=== PATIENT | male | born 1980 | race Hispanic/Latino ===

== ENCOUNTER 2020-04-08 20:32 | Emergency (ER) | payer OTHER ==
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
--- OUTSIDE RECORDS SUMMARY | 2020-04-08 20:39 | XMS REPORT | Continuity of Care Document ---
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 Mary [facility] Enco unter/ Legacy 00:00:00 00:00:00 Visit Alba Perkins [id number] Communi 977505 ty Health 2019-12-31 2019-12-31 Office Gardenia Echevarria [facility] Encounte r/ Legacy 00:00:00 00:00:00 Visit Teresa [id number] Com katerine 151576 ty Health 2019-12-28 2019-12-28 Office Diamond, [facility] LC Encounter / Legacy 00:00:00 00:00:00 Visit Alba [id number] Com katerine 195792 ty Health 2019-12-28 2019-12-28 Office Diamond, [facility] Encounter / Legacy 00:00:00 00:00:00 Visit Alba [id number] Com katerine 509602 ty Health 2019-12-20 2019-12-20 Office Provider, Public Health Services Omid [facility] Encounter/ Legacy 00:00:00 00:00:00 Visit Jeremiah Marroquin [id number] [id number] Communi 686052 ty Health 2019-11-30 2019-11-30 Office DiamondAlba [facility] Enco unter/ Legacy 00:00:00 00:00:00 Visit Christal Valdez [id number] Communi 606155 ty Health 2019-11-30 2019-11-30 Office Provider, Public Health Services [facility] Encounter/ Legacy 00:00:00 00:00:00 Visit Jeremiah Marroquin [phone] [id number] Communi 955031 ty Health 2019-11-30 2019-11-30 Office Diamond, LC [facility] Encounter / Legacy 00:00:00 00:00:00 Visit Alba [id number] Com katerine 531018 ty Health 2019-11-30 2019-11-30 Office Diamond, LC [facility] Encounter / Legacy 00:00:00 00:00:00 Visit Alba [id number] Com katerine 814455 ty Health 2019-05-18 2019-05-18 Office Diamond, [facility] LC Encounter / Legacy 00:00:00 00:00:00 Visit Alba [id number] Com katerine 115682 ty Health 2019-05-18 2019-05-18 Office Diamond, [facility] LC Encounter / Legacy 00:00:00 00:00:00 Visit Alba [id number] Com katerine 929352 ty Health 2019-05-18 2019-05-18 Office Diamond, Alba [facility] Enco unter/ Legacy 00:00:00 00:00:00 Visit Teena Miner [id number] Communi 129362 ty Health 2019-03-26 2019-03-26 Office Diamond, Alba [facility] Enco unter/ Legacy 00:00:00 00:00:00 Visit Loja Nique [id number] Communi 996337 ty Health 2019-01-19 2019-01-19 Office Diamond, Alba [facility] LC Enco unter/ Legacy 00:00:00 00:00:00 Visit Delgado Lori [id number] Communi 709264 ty Health 2019-01-03 2019-01-03 Office FLORES Crum LC Encounter/ Legacy 00:00:00 00:00:00 Visit Sandip [id number] Com katerine 890140 ty Health 2019-01-03 2019-01-03 Office FLORES Crum [facility] Encounter/ Legacy 00:00:00 00:00:00 Visit Sandip [id number] Com katerine 324301 ty Health 2018-12-20 2018-12-20 Office LucasEREN LC Encounte r/ Legacy 00:00:00 00:00:00 Visit Evette [id number] Com katerine 749303 ty Health 2018-12-06 2018-12-06 Office Dimaond, FLORES LC Encounter / Legacy 00:00:00 00:00:00 Visit Alba [id number] Com katerine 571583 ty Health 2018-12-06 2018-12-06 Office Diamond, EREN LC Encounter / Legacy 00:00:00 00:00:00 Visit Alba [id number] Com katerine 408352 ty Health 2018-09-28 2018-09-28 Office Diamond, EREN LC Encounter / Legacy 00:00:00 00:00:00 Visit Alba [id number] Com katerine 883597 Health 2018-09-28 2018-09-28 Office Diamond, Alba [facility] Enco unter/ Legacy 00:00:00 00:00:00 Visit Lisandra Webster [id number] Communi 687860 ty Health 2018-09-15 2018-09-15 Office Provider, Public Health Services L [facility] Encounter/ Legacy 00:00:00 00:00:00 Visit Jeremiah Marroquin [phone] [id number] Communi 503024 ty Health 2018-09-14 2018-09-14 Office FLORES Jc Encounter/ Legacy 00:00:00 00:00:00 Visit Gil [id number] Com katerine 875280 ty Health 2018-09-13 2018-09-13 Office Provider, Public Health Services L [facility] Encounter/ Legacy 00:00:00 00:00:00 Visit Jeremiah Marroquin [phone] [id number] Communi 121845 ty Health 2018-09-04 2018-09-04 Office Provider, Public Health Services L [facility] Encounter/ Legacy 00:00:00 00:00:00 Visit Jeremiah Marroquin [phone] [id number] Communi 356540 ty Health 2018-06-07 2018-06-07 Office Hosea, L[facility] Encounter/ Legacy 00:00:00 00:00:00 Visit Gil [id number] Com katerine 332104 Health 2018-06-07 2018-06-07 Office EREN JcH [facility] Encounter/ Legacy 00:00:00 00:00:00 Visit Gil [id number] Com katerine 675402 Health 2018-06-07 2018-06-07 Office Gil JcH L[facility] Enc ounter/ Legacy 00:00:00 00:00:00 Visit Nancy Zimmerman [id number] [address] [place] [address] Tal Valdez [id number] Health 2018-06-01 2018-06-01 Office Provider, Public Health Services L [facility] Encounter/ Legacy 00:00:00 00:00:00 Visit Jeremiah Marroquin [phone] [facility] [id number] [facility] 2018-05-30 2018-05-30 Office Rafita Espinal LCDunia L[facility] Encounter/ Legacy 00:00:00 00:00:00 Visit Lon Garrison [id number] [address] [place] [address] [id number] [facility] 2018-05-29 2018-05-29 Office Provider, Public Health Services L [facility] Encounter/ Legacy 00:00:00 00:00:00 Visit Jeremiah Marroquin [phone] [id number] [facility] 687619 [facility] 2018-02-01 2018-02-01 Office OToni L[facility] Encounter/ Legacy 00:00:00 00:00:00 Visit Rafita Pringle [id number] [facility] [id number] Health 2018-02-01 2018-02-01 Office Provider, Public Health Services L [facility] Encounter/ Legacy 00:00:00 00:00:00 Visit Jeremiah Marroquin [phone] [facility] 620730 Health 2018-02-01 2018-02-01 Office Provider, Public Health Services L [facility] Encounter/ Legacy 00:00:00 00:00:00 Visit Jeremiah Marroquin [phone] [facility] [id number] [facility] 2018-01-31 2018-01-31 Office Provider, Public Health Services L [facility] Encounter/ Legacy 00:00:00 00:00:00 Visit Jeremiah Marroquin [phone] [id number] [facility] 971063 ty Health 2018-01-31 2018-01-31 Office Rafita Espinal Dunia [facility] Encounter/ Legacy 00:00:00 00:00:00 Visit Audrey Sharp [id number] [facility] 144701 Health 2018-01-04 2018-01-04 Office Provider, Public Health Services L [facility] Encounter/ Legacy 00:00:00 00:00:00 Visit Jeremiah Marroquin [phone] [id number] [facility] 865699 ty Health 2017-12-06 2017-12-06 Office Mustapha [facility] Encounte r/ Legacy 00:00:00 00:00:00 Visit Lilly [id number] [facility] 187163 ty Health 2017-11-14 2017-11-14 Office FLORES Espinal LC Encounter/ Legacy 00:00:00 00:00:00 Visit Rafita Pringle [id number] [facility] [id number] Health 2017-11-11 2017-11-11 Office FLORES Espinal LC Encounter/ Legacy 00:00:00 00:00:00 Visit Rafita Pringle [id number] [facility] 872081 [facility] Health 2017-10-21 2017-10-21 Office Kylie [facility] LC Encounter/ Legacy 00:00:00 00:00:00 Visit Rafita Pringle [id number] [facility] 375103 Health 2017-10-12 2017-10-12 Office Provider, Public Health Services L [facility] Encounter/ Legacy 00:00:00 00:00:00 Visit Jeremiah Marroquin [phone] [facility] 442679 ty Health 2017-09-01 2017-09-01 Office Kylie [facility] Encounter/ Legacy 00:00:00 00:00:00 Visit Rafita Pringle [id number] [facility] 795942 ty Health 2017-09-01 2017-09-01 Office Rafita Espinal [facility] Encounter/ Legacy 00:00:00 00:00:00 Visit Dmitri Jaramillo [id number] [facility] 120269 ty Health 2017-08-03 2017-08-03 Office Provider, Public Health Services L [facility] Encounter/ Legacy 00:00:00 00:00:00 Visit Jeremiah Marroquin [phone] [id number] Communi 050558 ty Health 2017-08-03 2017-08-03 Office O'Wilman, [facility] Encounter/ Legacy 00:00:00 00:00:00 Visit Rafita Pringle [id number] Communi 729034 ty Health 2017-08-02 2017-08-02 Office Provider, Public Health Services L [facility] Encounter/ Legacy 00:00:00 00:00:00 Visit Jeermiah Marroquin [phone] [id number] Communi 216703 ty Health 2017-07-21 2017-07-21 Office O'Wilman, [facility] Encounter/ Legacy 00:00:00 00:00:00 Visit Rafita Pringle [id number] [facility] 989044 Health 2017-07-20 2017-07-20 Office Provider, Public Health Services L [facility] Encounter/ Legacy 00:00:00 00:00:00 Visit Jeremiah Marroquin [phone] [facility] 108759 Health 2017-05-04 2017-05-04 Office O'Wilman, [facility] Encounter/ Legacy 00:00:00 00:00:00 Visit Rafita Pringle [id number] Communi 852500 ty Health 2017-05-04 2017-05-04 Office O'Wliman, [facility] Encounter/ Legacy 00:00:00 00:00:00 Visit Rafita Pringle [id number] [facility] 653230 ty Health 2017-05-04 2017-05-04 Office O'Wilman, [facility] Encounter/ Legacy 00:00:00 00:00:00 Visit Rafita Pringle [id number] [facility] 374763 ty Health 2017-05-04 2017-05-04 Office Provider, Public Health Services L [facility] Encounter/ Legacy 00:00:00 00:00:00 Visit Jeremiah Marroquin [phone] [id number] [facility] 079785 ty Health 2017-04-28 2017-04-28 Office O'Wilman, [facility] Encounter/ Legacy 00:00:00 00:00:00 Visit Rafita Pringle [id number] [facility] 267303 Health 2017-04-22 2017-04-22 Office Provider, Public Health Services L [facility] Encounter/ Legacy 00:00:00 00:00:00 Visit KeristephanyJeremiah butterfield [phone] [id number] Communi 220351 [facility] 2017-04-22 2017-04-22 Office Provider, Public Health Services L [facility] Encounter/ Legacy 00:00:00 00:00:00 Visit Jeremiah Marroquin [phone] Communi [id number] Health 2017-04-17 2017-04-17 Outpatient Sandhir, MHPL MHPL [id number] 19:59:00 21:16:00 Ambica 2017-03-02 2017-03-02 Outpatient Malya, MHPL MHPL [id number] 19:11:00 23:19:00 Braxton 00 Isma 2017-02-21 2017-02-21 Office Rafita Espinal [facility] Encounter/ Legacy 00:00:00 00:00:00 Visit Ry Palomino [id number] Communi 164886 [facility] 2017-02-18 2017-02-18 Office Rafita Espinal [facility] Encounter/ Legacy 00:00:00 00:00:00 Visit Magi Kimball [id number] Communi [id number] Health 2017-01-19 2017-01-19 Office FLORES Espinal LC Encounter/ Legacy 00:00:00 00:00:00 Visit Rafita Pringle [id number] Communi 953201 Health 2017-01-19 2017-01-19 Office Rafita Espinal LC Encounter/ Legacy 00:00:00 00:00:00 Visit Magi Kimball [id number] Communi 799141 Health 2017-01-17 2017-01-17 Office FLORES Espinal [facility] Encounter/ Legacy 00:00:00 00:00:00 Visit Rafita Pringle [id number] Communi 311589 Health 2017-01-12 2017-01-12 Office FLORES Espinal [facility] Encounter/ Legacy 00:00:00 00:00:00 Visit Rafita Pringle [id number] Communi 267055 Health 2017 2017 Office EREN Espinal [facility] Encounter/ Legacy 00:00:00 00:00:00 Visit Rafita Pringle [id number] [facility] 938389 Health 2017 2017 Office Provider, Public Health Services L [facility] Encounter/ Legacy 00:00:00 00:00:00 Visit Jeremiah Marroquin [phone] [facility] 583067 Health 2017 2017 Office O'Wilman, [facility] Encounter/ Legacy 00:00:00 00:00:00 Visit Rafita Pringle [phone] [facility] 419009 Health 2017 2017 Office O'Rafita Stovall [facility] Encounter/ Legacy 00:00:00 00:00:00 Visit Dmitri Jaramillo [id number] [facility] 678847 Health 2016-12-13 2016-12-13 Office Provider, Public Health Services L [facility] Encounter/ Legacy 00:00:00 00:00:00 Visit Jeremiah Marroquin [phone] [facility] 066089 Health 2016-12-10 2016-12-10 Office O'Wilman, [facility] Encounter/ Legacy 00:00:00 00:00:00 Visit Rafita Pringle [phone] [facility] 135199 [facility] 2016-02-25 2016-02-25 Office Provider, Public Health Services L [facility] Encounter/ Legacy 00:00:00 00:00:00 Visit Jeremiah Marroquin [phone] [facility] 919341 [facility] 2016-02-24 2016-02-24 Office Provider, Public Health Services L [facility] Encounter/ Legacy 00:00:00 00:00:00 Visit Jeremiah Marroquin [phone] [id number] [facility] [id number] Health 2016-02-11 2016-02-11 Office Karina, [facility] Encount er/ Legacy 00:00:00 00:00:00 Visit Renetta [id number] [facility] 912326 Health 2016-02-11 2016-02-11 Office Provider, Public Health Services L [facility] Encounter/ Legacy 00:00:00 00:00:00 Visit Eugenie Angeles [id number] [facility] 866326 Health 2016-02-11 2016-02-11 Office VickynedaanatoliyRenetta stubbs [facility] Encounter/ Legacy 00:00:00 00:00:00 Visit Geyl Lopez [phone] [id number] CommunRafita Sharp 3091 70 ty Health 2016-01-29 2016-01-29 Office Ayesha, [facility] Encounter/ Legacy 00:00:00 00:00:00 Visit Antoinette [id number] Com katerine 102216 ty Health 2016-01-29 2016-01-29 Office Ayesha, [facility] Encounter/ Legacy 00:00:00 00:00:00 Visit Antoinette [id number] Com katerine 024743 ty Health 2015-09-01 2015-09-01 Office Yuri, [facility] Encounter/ Legacy 00:00:00 00:00:00 Visit Kacie [id number] Com katerine 438124 ty Health 2015-08-22 2015-08-22 Office EREN Espinal [facility] Encounter/ Legacy 00:00:00 00:00:00 Visit Rafita Pringle [id number] Communi 693984 ty Health 2015-08-22 2015-08-22 Office Provider, Public Health Services L [facility] Encounter/ Legacy 00:00:00 00:00:00 Visit Jeremiah Marroquin [phone] [id number] Communi 182044 ty Health 2015-08-21 2015-08-21 Office Noemi'Wilman, LC [facility] Encounter/ Legacy 00:00:00 00:00:00 Visit Rafita Pringle [id number] Communi 847781 ty Health 2015-08-21 2015-08-21 Office O'Wilman, LC [facility] Encounter/ Legacy 00:00:00 00:00:00 Visit Rafita Pringle [id number] Communi 820392 ty Health 2015-08-21 2015-08-21 Office Provider, Public Health Services L CH [facility] Encounter/ Legacy 00:00:00 00:00:00 Visit Eugenei Angeles [id number] Communi 261284 ty Health 2015-08-21 2015-08-21 Office Provider, Public Health Services L [facility] Encounter/ Legacy 00:00:00 00:00:00 Visit Eugenie Angeles [id number] Communi 712542 ty Health 2015-08-21 2015-08-21 Office Rafita Espinal LC [facility] Encounter/ Legacy 00:00:00 00:00:00 Visit Dmitri Jaramillo [id number] Communi 736839 ty Health 2015-08-20 2015-08-20 Office Provider, Public Health Services L CH [facility] Encounter/ Legacy 00:00:00 00:00:00 Visit Jeremiah Marroquin [phone] [id number] Communi 857562 ty Health 2015-08-12 2015-08-12 Office FLORES Espinal [facility] Encounter/ Legacy 00:00:00 00:00:00 Visit Rafita Pringle [id number] Communi 441859 ty Health 2015-08-12 2015-08-12 Office Rafita Espinal [facility] Encounter/ Legacy 00:00:00 00:00:00 Visit Dmitri Jaramillo [id number] [facility] 918746 [facility] Health 2015-08-11 2015-08-11 Office FLORES Espinal [facility] Encounter/ Legacy 00:00:00 00:00:00 Visit Rafita Pringle [id number] Communi 301018 ty Health 2015-08-11 2015-08-11 Office FLORES Kimball LC Encounter/ Legacy 00:00:00 00:00:00 Visit Stephanie [id number] Com katerine 163546 ty Health 2015-08-11 2015-08-11 Office Provider, Public Health Services L CH [facility] Encounter/ Legacy 00:00:00 00:00:00 Visit Jeremiah Marroquin [phone] [id number] Communi 380389 ty Health 2015-08-11 2015-08-11 Office Stephanie Kimball [facility] Enco unter/ Legacy 00:00:00 00:00:00 Visit Renato Weller [id number] Communi 566447 ty Health 2015-01-29 2015-01-29 Office Cara TANNER [facility] Encoun ter/ Legacy 00:00:00 00:00:00 Visit Jeremiah [id number] Com katerine 293913 ty Health 2014-12-23 2014-12-23 Office FLORES Hodge [facility] Encounter/ Legacy 00:00:00 00:00:00 Visit Antoinette [id number] Com katerine 567200 ty Health 2014-12-17 2014-12-17 Office Cliff [facility] Encounte r/ Legacy 00:00:00 00:00:00 Visit Daphne [id number] Com katerine 933479 ty Health 2014-12-17 2014-12-17 Office CliffDaphne brizuela [facility] Enc ounter/ Legacy 00:00:00 00:00:00 Visit Antoinette Hodge [id number] Communi 820962 ty Health 2014-12-01 2014-12-01 Office Ayesha [facility] Encounter/ Legacy 00:00:00 00:00:00 Visit Antoinette [id number] Com katerine 684968 ty Health 2014-11-19 2014-11-19 Office [facility] Encoun ter/ Legacy 00:00:00 00:00:00 Visit , Jeremiah [id number] Com katerine 582743 ty Health 2014-11-19 2014-11-19 [facility]/ Legacy 00:00:00 00:00:00 Visit , Jeremiah [id number] Com katerine 680411 ty Health 2014-11-14 2014-11-14 Office Ayesha [facility] Encounter/ Legacy 00:00:00 00:00:00 Visit Antoinette [id number] Com katerine 338338 ty Health 2014-11-14 2014-11-14 Office Antoinette Hodge [facility] Enc ounter/ Legacy 00:00:00 00:00:00 Visit Mirta Ramos [id number] Communi 148657 ty Health 2014-11-14 2014-11-14 Office Antoinette Hodge [facility] Enc ounter/ Legacy 00:00:00 00:00:00 Visit Lilly Luciano [phone] [id number] Communi 099798 ty Health 2014-11-13 2014-11-13 Office [facility] Encoun ter/ Legacy 00:00:00 00:00:00 Visit , Jeremiah [id number] Com katerine 999183 ty Health 2014-11-12 2014-11-12 Office [facility] Encoun ter/ Legacy 00:00:00 00:00:00 Visit , Jeremiah [id number] Com katerine 123701 ty Health 2014-10-30 2014-10-30 [facility] Legacy 00:00:00 00:00:00 Visit Zulema [id number] Com katerine 633229 ty Health 2014-10-29 2014-10-29 [facility]00 00:00:00 Visit , Jeremiah [id number] Com katerine 339433 ty Health 2014-10-22 2014-10-22 [facility] Legacy 00:00:00 00:00:00 Visit Antoinette [id number] Com katerine 186008 ty Health 2014-10-22 2014-10-22 [facility] Legacy 00:00:00 00:00:00 Visit , Jeremiah [id number] Com katerine 605250 ty Health 2014-10-18 2014-10-18 [facility] Legacy 00:00:00 00:00:00 Visit Antoinette [id number] Com katerine 186899 ty Health 2014-10-18 2014-10-18 Office FLORES Hodge Encounter/ Legacy 00:00:00 00:00:00 Visit Antoinette [id number] Com katerine 618631 ty Health 2014-10-18 2014-10-18 [facility] Legacy 00:00:00 00:00:00 Visit , Jeremiah [id number] Com katerine 694482 ty Health 2014-10-18 2014-10-18 Office Antoinette Hodge [facility] Enc ounter/ Legacy 00:00:00 00:00:00 Visit Lilly Luciano [phone] [id number] Communi 243186 ty Health 2014-10-17 2014-10-17 [facility] Legacy 00:00:00 00:00:00 Visit Antoinette [id number] Com katerine 985124 ty Health 2014-10-17 2014-10-17 Office Anila [facility] Encounter/ Legacy 00:00:00 00:00:00 Visit Tucker [id number] Com katerine 189688 ty Health 2014-10-09 2014-10-09 [facility] Legacy 00:00:00 00:00:00 Visit Nelson [id number] Com katerine 305266 ty Health 2014-10-08 2014-10-08 [facility]/ Legacy 00:00:00 00:00:00 Visit Nelson [id number] Com katerine 167583 ty Health 2014-10-02 2014-10-02 [facility]/ Legacy 00:00:00 00:00:00 Visit Nelson [id number] Com katerine 731295 ty Health 2014-10-02 2014-10-02 [facility]/ Legacy 00:00:00 00:00:00 Visit Nelson [id number] Com katerine 674014 ty Health 2014-10-02 2014-10-02 [facility]/ Legacy 00:00:00 00:00:00 Visit Nelson [id number] Com katerine 166719 ty Health 2014-10-02 2014-10-02 Office [facility] counter/ Legacy 00:00:00 00:00:00 Visit Per Collins [id number] Communi 802467 ty Health 2014-10-02 2014-10-02 Office Arthur [facility] Encount er/ Legacy 00:00:00 00:00:00 Visit Thee [id number] Com katerine 507036 ty Health 2014-09-20 2014-09-20 [facility]/ Legacy 00:00:00 00:00:00 Visit Nelson [id number] Com katerine 698512 ty Health 2014-07-22 2014-07-22 [facility] / Legacy 00:00:00 00:00:00 Visit Jt [id number] Com katerine 665952 ty Health 2013-02-13 2013-02-13 Office EREN Simmons EREN Encounter / Legacy 00:00:00 00:00:00 Visit Cynthia [id number] Co mmuni 790570 Health 2013-02-13 2013-02-13 Office Troy [facility] LC Encounter / Legacy 00:00:00 00:00:00 Visit Cynthia [id number] Co mmuni 649489 ty Health 2013-02-09 2013-02-09 Office EREN Diamond LC Encounter / Legacy 00:00:00 00:00:00 Visit Alba [id number] Com katerine 384010 Health 2013-02-09 2013-02-09 [facility] Legacy 00:00:00 00:00:00 Visit [id number] Com katerine 525558 Health 2013-02-09 2013-02-09 Office Alba Diamond [facility] Enco unter/ Legacy 00:00:00 00:00:00 Visit Paul Alvarenga [id number] [facility] Tao Frieda [phone] [facility] 2013-02-01 2013-02-01 Office Troy [facility] LC Encounter / Legacy 00:00:00 00:00:00 Visit Cynthia [id number] Co mmuni [id number] [facility] 2013-01-31 2013-01-31 [facility] / Legacy 00:00:00 00:00:00 Visit Cynthia [id number] Co mmuni [id number] [facility] 2013-01-09 2013-01-09 Office Adwoa Marcelo [facility] LCH Enc ounter/ Legacy 00:00:00 00:00:00 Visit Yuridia Foley [id number] Communi [id number] [facility] 2013-01-09 2013-01-09 Office Alba Diamond [facility] Enco unter/ Legacy 00:00:00 00:00:00 Visit Oren Edouard [id number] [facility] Paul Alvarenga [id number] [facility] 2013-01-02 2013-01-02 Office Bladimir EREN LC Encounter/ Legacy 00:00:00 00:00:00 Visit Lon [id number] Com katerine [id number] [facility] 2013-01-02 2013-01-02 Office Lon Garrison [facility] Encou nter/ Legacy 00:00:00 00:00:00 Visit Evette Li [id number] Communi [id number] Health 2012-12-27 2012-12-27 Office Troy [facility] Encounter / Legacy 00:00:00 00:00:00 Visit Cynthia [id number] Co mmuni [id number] Health 2012-10-23 2012-10-23 Office Colette [facility] Encounter / Legacy 00:00:00 00:00:00 Visit [id number] Com katerine [id number] ty Health 2012-10-11 2012-10-11 Office Christopher [facility] Encounter/ Legacy 00:00:00 00:00:00 Visit Kenny [id number] Com kaetrine [id number] Health 2012-10-11 2012-10-11 Office Christopher [facility] Encounter/ Legacy 00:00:00 00:00:00 Visit Kenny [id number] Com katerine [id number] Health 2012-10-11 2012-10-11 Office Kenny White [facility] Enco unter/ Legacy 00:00:00 00:00:00 Visit Neli Flores [id number] Communi [id number] [facility] 2012-10-09 2012-10-09 Office Christopher [facility] Encounter/ Legacy 00:00:00 00:00:00 Visit Kenny [id number] Com katerine [id number] Health 2012-10-02 2012-10-02 Office Colette [facility] Encounter / Legacy 00:00:00 00:00:00 Visit [id number] Com katerine [id number] Health 2012-09-27 2012-09-27 Office Troy [facility] Encounter / Legacy 00:00:00 00:00:00 Visit Cynthia [id number] Co mmuni [id number] [facility] Results Test Description Test Time Test Comments Results Result Comments Source vitamin D 25-hydroxy, serum 2020-03-26 14:43:00 Test Item Value Reference Range Interpretation Comme nts vitamin D 25-hydroxy, serum (test code = 14977-9) 22.4 ng/mL 30.0 -100.0 [facility], as % of total pmvdncsbvk1988-49-73 14:43:00 Test Item Value Reference Range Interpretation Comments hemoglobin A1C, blood, as % of total 5.3 % 4.8-5.6 hemoglobin (test code = 4548-4) [facility] Healthfolate, [id number] 14:43:00 Test Item Value Reference Range Interpretation Comments folate, serum (test code = 2284-8) 6.0 ng/mL >3.0 [facility] [id number] 14:43:00 Test Item Value Reference Range Interpretation Comments B-12, serum (test code = 2132-9) 843 pg/mL 232-1245 [facility]LDL cholesterol, [id number] 14:43:00 Test Item Value Reference Range Interpretation Comments LDL cholesterol, serum (test code = 148 mg/dL 0-99 H 2088-06) [facility]very low density mqwmtblfqhrv0197-25-60 14:43:00 Test Item Value Reference Range Interpretation Comments very low density lipoproteins (test 22 mg/dL 5-40 code = 1-7) [facility]HDL cholesterol, [id number] 14:43:00 Test Item Value Reference Range Interpretation Comments HDL cholesterol, serum (test code = 39 mg/dL >39 L 2085-02) [facility]rig[facility], serum, sctnzbr5459-53-30 14:43:00 Test Item Value Reference Range Interpretation Comments triglyceride, serum, fasting (test 119 mg/dL 0-149 code = 2571-8) [facility]cholesterol, [id number] 14:43:00 Test Item Value Reference Range Interpretation Comments cholesterol, serum (test code = 209 mg/dL 100-199 H 2092-3) [facility] Centeralanine aminotransferase (SGPT), [id number] 14:43:00 Test Item Value Reference Range Interpretation Comments alanine aminotransferase (SGPT), serum 17 1/L 0-44 (test code = 1742-6) [facility] Centeraspartate aminotransferase (SGOT), [id number] 14:43:00 Test Item Value Reference Range Interpretation Comments aspartate aminotransferase (SGOT), 17 1/L 0-40 serum (test code = 1920-8) [facility] Centeralkaline phosphatase, [id number] 14:43:00 Test Item Value Reference Range Interpretation Comments alkaline phosphatase, serum (test code 63 1/L 39-117 = 1783-0) [facility] Healthbilirubin, serum, [id number] 14:43:00 Test Item Value Reference Range Interpretation Comments bilirubin, serum, total (test code 0.6 mg/dL 0.0-1.2 = 1975-2) [facility] Healthalbumin/globulin ratio, [id number] 14:43:00 Test Item Value Reference Range Interpretation Comments albumin/globulin ratio, serum (test 1.7 1.2-2.2 code = 1759-0) [facility] Healthglobulin, [id number] 14:43:00 Test Item Value Reference Range Interpretation Comments globulin, serum (test code = 2336-6) 2.7 1.5-4.5 [facility] Healthalbumin, [id number] 14:43:00 Test Item Value Reference Range Interpretation Comments albumin, serum (test code = 1751-7) 4.7 g/dL 4.0-5.0 [facility] Healthprotein, total, [id number] 14:43:00 Test Item Value Reference Range Interpretation Comments protein, total, serum (test code = 7.4 g/dL 6.0-8.5 2885-2) [facility]calcium, [id number] 14:43:00 Test Item Value Reference Range Interpretation Comments calcium, serum (test code = 1999-8) 9.3 mg/dL 8.7-10.2 [facility] Centercarbon dioxide, venous [id number] 14:43:00 Test Item Value Reference Range Interpretation Comments carbon dioxide, venous blood (test 22 mmol/L 20-29 code = 7-1) [facility] Healthchloride, rrvhn2798-80-18 14:43:00 Test Item Value Reference Range Interpretation Comments chloride, serum (test code = 100 mmol/L 96-106 5-0) [facility]potassium, [id number] 14:43:00 Test Item Value Reference Range Interpretation Comments potassium, serum (test code = 3.8 mmol/L 3.5-5.2 2823-3) [facility] Centersodium, [id number] 14:43:00 Test Item Value Reference Range Interpretation Comments sodium, serum (test code = 2951-2) 140 mmol/L 134-144 [facility] Centerurea nitrogen/creatinine ratio, fmezb7311-60-24 14:43:00 Test Item Value Reference Range Interpretation Comments urea nitrogen/creatinine ratio, serum 12 9-20 (test code = 3097-3) [facility] HealtheGFR if Eoyagwcl0254-74-16 14:43:00 Test Item Value Reference Range Interpretation Comments eGFR if 103 >59 (test code = 87334-9) mL/min/((173/100).m2) [facility] CenterEstimated Glomerular Filtration Rate (calc)2020-03-26 14:43:00 Test Item Value Reference Range Interpretation Comments Estimated Glomerular 89 >59 Filtration Rate (calc) mL/min/((173/100).m2 (test code = 13779-5) ) [facility] Centercreatinine, [id number] 14:43:00 Test Item Value Reference Range Interpretation Comments creatinine, serum (test code = 1.04 mg/dL 0.76-1.27 2160-0) [facility] Centerurea nitrogen, [id number] 14:43:00 Test Item Value Reference Range Interpretation Comments urea nitrogen, blood (test code = 12 mg/dL 6-24 3094-0) [facility] Centerblood glucose, [id number] 14:43:00 Test Item Value Reference Range Interpretation Comments blood glucose, random (test code = 101 mg/dL 65-99 H 2339-0) [facility] Centerimmature granulocytes, percentage of total cells, blood 2020-03-26 14:43:00 Test Item Value Reference Range Interpretation Comments immature granulocytes, percentage of 0 % total cells, blood (test code = 81208-4) [facility] Centerbasophil count, vzuyroql6488-91-31 14:43:00 Test Item Value Reference Range Interpretation Comments basophil count, absolute (test 0.0 x10E3/uL 0.0-0.2 code = 65549-1) [facility] CenterEosinophil Absolute [id number] 14:43:00 Test Item Value Reference Range Interpretation Comments Eosinophil Absolute Count (test 0.2 X10E3/UL 0.0-0.4 code = 93123-4) [facility] Centermonocyte count, blood, ikqxwexek9547-95-39 14:43:00 Test Item Value Reference Range Interpretation Comments monocyte count, blood, automated 0.5 X10E3/UL 0.1-0.9 (test code = 742-7) [facility] Centerlymphocyte count, blood, bayqbovcc5668-14-17 14:43:00 Test Item Value Reference Range Interpretation Comments lymphocyte count, blood, 2.5 X10E3/UL 0.7-3.1 automated (test code = 731-0) [facility] CenterAbsolute Umbeazoqdhr8217-85-96 14:43:00 Test Item Value Reference Range Interpretation Comments Absolute Neutrophils (test code 3.9 X10E3/UL 1.4-7.0 = 10132-2) [facility] Centerbasophils as percent of blood ludkzatlmo4747-36-82 14:43:00 Test Item Value Reference Range Interpretation Comments basophils as percent of blood 0 % leukocytes (test code = 707-0) [facility] Centereosinophils as percent of blood cpnthqbfje3815-95-83 14:43:00 Test Item Value Reference Range Interpretation Comments eosinophils as percent of blood 2 % leukocytes (test code = 713-8) [facility] Healthmonocytes as percent of blood tkoxjnokff5188-99-56 14:43:00 Test Item Value Reference Range Interpretation Comments monocytes as percent of blood 7 % leukocytes (test code = 5905-5) [facility] Centerlymphocytes as percent of blood vqbdolarcf3117-64-81 14:43:00 Test Item Value Reference Range Interpretation Comments lymphocytes as percent of blood 35 % leukocytes (test code = 736-9) [facility] Centerneutrophils as percent of blood claexlyjbo5991-41-76 14:43:00 Test Item Value Reference Range Interpretation Comments neutrophils as percent of blood 56 % leukocytes (test code = 770-8) [facility] Centerplatelet gmfze5326-78-61 14:43:00 Test Item Value Reference Range Interpretation Comments platelet count (test code = 246 X10E3/UL 150-450 777-3) [facility] Centerred blood cell distribution kehvk0291-77-33 14:43:00 Test Item Value Reference Range Interpretation Comments red blood cell distribution width 12.8 % 11.6-15.4 (test code = 788-0) [facility] corpuscular hemoglobin concentration, [id number] 14:43:00 Test Item Value Reference Range Interpretation Comments mean corpuscular hemoglobin 32.4 G/DL 31.5-35.7 concentration, RBC (test code = 786-4) [facility] Centermean corpuscular hemoglobin, [id number] 14:43:00 Test Item Value Reference Range Interpretation Comments mean corpuscular hemoglobin, RBC 28.8 pg 26.6-33.0 (test code = 785-6) [facility], [id number] 14:43:00 Test Item Value Reference Range Interpretation Comments mean corpuscular volume, RBC (test code 89 fL 79-97 = 787-2) [facility] Centerhematocrit, [id number] 14:43:00 Test Item Value Reference Range Interpretation Comments hematocrit, blood (test code = 4544-3) 42.9 % 37.5-51.0 [facility] Centerhemoglobin, [id number] 14:43:00 Test Item Value Reference Range Interpretation Comments hemoglobin, blood (test code = 13.9 g/dL 13.0-17.7 718-7) [facility] Centererythrocyte (RBC) [id number] 14:43:00 Test Item Value Reference Range Interpretation Comments erythrocyte (RBC) count (test 4.82 X10E6/UL 4.14-5.80 code = 789-8) [facility] Centerleukocyte count, [id number] 14:43:00 Test Item Value Reference Range Interpretation Comments leukocyte count, blood (test 7.1 X10E3/UL 3.4-10.8 code = 6690-2) [facility] Centerthyroxine, serum, [id number] 14:43:00 Test Item Value Reference Range Interpretation Comments thyroxine, serum, free (test code 1.20 ng/dL 0.82-1.77 = 3024-7) [facility] Centerthyroid stimulating hormone, [id number] 14:43:00 Test Item Value Reference Range Interpretation Comments thyroid stimulating hormone, 0.768 u[iU]/mL 0.450-4.500 serum (test code = 3016-3) [facility] CenterNeisseria gonorrhoeae DNA jqyiw1095-30-27 11:09:00 Test Item Value Reference Range Interpretation Comments Neisseria gonorrhoeae DNA probe Negative Negative (test code = 79394-9) [facility] Centerchlamydia DNA [id number] 11:09:00 Test Item Value Reference Range Interpretation Comments chlamydia DNA probe (test code = Negative Negative 03621-4) [facility] Centerhepatitis A antibody, [id number] 11:05:00 Test Item Value Reference Range Interpretation Comments hepatitis A antibody, total (test Positive Negative A code = 75) [facility] CenterHIV-CMIA (Chemiluminescent Microparticle Immuno Assay) 2019-11-30 11:05:00 Test Item Value Reference Range Interpretation Comments HIV-CMIA (Chemiluminescent Non Reactive Non Reactive Microparticle Immuno Assay) (test code = 739719) [facility] Centerrapid plasma reagin antibody, [id number] 11:05:00 Test Item Value Reference Range Interpretation Comments rapid plasma reagin antibody, Non Reactive Non Reactive serum (test code = 5291-0) [facility] Centeralanine aminotransferase (SGPT), [id number] 11:05:00 Test Item Value Reference Range Interpretation Comments alanine aminotransferase (SGPT), serum 15 1/L 0-44 (test code = 1742-6) [facility] Centeraspartate aminotransferase (SGOT), ehjop3491-30-00 11:05:00 Test Item Value Reference Range Interpretation Comments aspartate aminotransferase (SGOT), 14 1/L 0-40 serum (test code = 1920-8) [facility] Centeralkaline phosphatase, byfwc5086-97-23 11:05:00 Test Item Value Reference Range Interpretation Comments alkaline phosphatase, serum (test code 56 1/L 39-117 = 1783-0) [facility] Centerbilirubin, serum, [id number] 11:05:00 Test Item Value Reference Range Interpretation Comments bilirubin, serum, total (test code 0.5 mg/dL 0.0-1.2 = 1975-2) [facility] Centeralbumin/globulin ratio, aqggn1737-11-24 11:05:00 Test Item Value Reference Range Interpretation Comments albumin/globulin ratio, serum (test 1.9 1.2-2.2 code = 1759-0) [facility] Healthglobulin, [id number] 11:05:00 Test Item Value Reference Range Interpretation Comments globulin, serum (test code = 2336-6) 2.5 1.5-4.5 [facility] Healthalbumin, [id number] 11:05:00 Test Item Value Reference Range Interpretation Comments albumin, serum (test code = 1751-7) 4.7 g/dL 4.0-5.0 [facility] Healthprotein, total, [id number] 11:05:00 Test Item Value Reference Range Interpretation Comments protein, total, serum (test code = 7.2 g/dL 6.0-8.5 2885-2) [facility] Healthcalcium, bjyry8920-39-96 11:05:00 Test Item Value Reference Range Interpretation Comments calcium, serum (test code = 2000-8) 9.7 mg/dL 8.7-10.2 [facility]ercarbon dioxide, venous [id number] 11:05:00 Test Item Value Reference Range Interpretation Comments carbon dioxide, venous blood (test 21 mmol/L 20-29 code = 7-1) [facility] Healthchloride, lucbl5968-48-24 11:05:00 Test Item Value Reference Range Interpretation Comments chloride, serum (test code = 101 mmol/L 96-106 5-0) [facility] Centerpotassium, [id number] 11:05:00 Test Item Value Reference Range Interpretation Comments potassium, serum (test code = 4.6 mmol/L 3.5-5.2 2823-3) [facility] Healthsodium, ldihq9924-87-72 11:05:00 Test Item Value Reference Range Interpretation Comments sodium, serum (test code = 2951-2) 140 mmol/L 134-144 [facility] Healthurea nitrogen/creatinine ratio, [id number] 11:05:00 Test Item Value Reference Range Interpretation Comments urea nitrogen/creatinine ratio, serum 11 9-20 (test code = 3097-3) [facility] HealtheGFR if Kjsaacgz6653-20-77 11:05:00 Test Item Value Reference Range Interpretation Comments eGFR if 114 >59 (test code = 44880-1) mL/min/((173/100).m2) [facility] CenterEstimated Glomerular Filtration Rate (calc)2019-11-30 11:05:00 Test Item Value Reference Range Interpretation Comments Estimated Glomerular 98 >59 Filtration Rate (calc) mL/min/((173/100).m2 (test code = 72561-4) ) [facility] Centercreatinine, [id number] 11:05:00 Test Item Value Reference Range Interpretation Comments creatinine, serum (test code = 0.96 mg/dL 0.76-1.27 2160-0) [facility] Centerurea nitrogen, ehezd5734-11-86 11:05:00 Test Item Value Reference Range Interpretation Comments urea nitrogen, blood (test code = 11 mg/dL 6-24 3094-0) [facility] Centerblood glucose, zzrhbi7010-80-52 11:05:00 Test Item Value Reference Range Interpretation Comments blood glucose, random (test code = 85 mg/dL 65-99 2339-0) [facility] Centerimmature granulocytes, percentage of total cells, blood 2019-11-30 11:05:00 Test Item Value Reference Range Interpretation Comments immature granulocytes, percentage of 0 % total cells, blood (test code = 75506-9) [facility] Centerbasophil count, sruvsybi1809-80-72 11:05:00 Test Item Value Reference Range Interpretation Comments basophil count, absolute (test 0.0 x10E3/uL 0.0-0.2 code = 78675-2) [facility] CenterEosinophil Absolute Aqqvv9521-06-10 11:05:00 Test Item Value Reference Range Interpretation Comments Eosinophil Absolute Count (test 0.0 X10E3/UL 0.0-0.4 code = 92336-7) [facility] Centermonocyte count, blood, bwlacqocw9935-90-02 11:05:00 Test Item Value Reference Range Interpretation Comments monocyte count, blood, automated 0.5 X10E3/UL 0.1-0.9 (test code = 742-7) [facility] Centerlymphocyte count, blood, dilqmsdyi1462-76-98 11:05:00 Test Item Value Reference Range Interpretation Comments lymphocyte count, blood, 1.8 X10E3/UL 0.7-3.1 automated (test code = 731-0) [facility] CenterAbsolute Ejkujitodeo6973-63-10 11:05:00 Test Item Value Reference Range Interpretation Comments Absolute Neutrophils (test code 3.3 X10E3/UL 1.4-7.0 = 91427-8) [facility] Centerbasophils as percent of blood ijeeryayev8234-45-12 11:05:00 Test Item Value Reference Range Interpretation Comments basophils as percent of blood 1 % leukocytes (test code = 707-0) [facility] Centereosinophils as percent of blood spuqnvxgfb8710-71-07 11:05:00 Test Item Value Reference Range Interpretation Comments eosinophils as percent of blood 1 % leukocytes (test code = 713-8) [facility] Healthmonocytes as percent of blood qweujyhlqp0711-69-92 11:05:00 Test Item Value Reference Range Interpretation Comments monocytes as percent of blood 9 % leukocytes (test code = 5905-5) [facility] Centerlymphocytes as percent of blood mkkdopzzch8148-93-05 11:05:00 Test Item Value Reference Range Interpretation Comments lymphocytes as percent of blood 31 % leukocytes (test code = 736-9) [facility] Centerneutrophils as percent of blood ujrinqazbs7518-98-02 11:05:00 Test Item Value Reference Range Interpretation Comments neutrophils as percent of blood 58 % leukocytes (test code = 770-8) [facility] Centerplatelet olphg3788-26-18 11:05:00 Test Item Value Reference Range Interpretation Comments platelet count (test code = 259 X10E3/UL 150-450 777-3) [facility] Centerred blood cell distribution [id number] 11:05:00 Test Item Value Reference Range Interpretation Comments red blood cell distribution width 13.5 % 11.6-15.4 (test code = 788-0) [facility] Centermean corpuscular hemoglobin concentration, [id number] 11:05:00 Test Item Value Reference Range Interpretation Comments mean corpuscular hemoglobin 31.5 G/DL 31.5-35.7 concentration, RBC (test code = 786-4) [facility]ermean corpuscular hemoglobin, [id number] 11:05:00 Test Item Value Reference Range Interpretation Comments mean corpuscular hemoglobin, RBC 27.8 pg 26.6-33.0 (test code = 785-6) [facility] Centermean corpuscular volume, [id number] 11:05:00 Test Item Value Reference Range Interpretation Comments mean corpuscular volume, RBC (test code 88 fL 79-97 = 787-2) [facility] Centerhematocrit, gweoh4019-09-46 11:05:00 Test Item Value Reference Range Interpretation Comments hematocrit, blood (test code = 4544-3) 46.3 % 37.5-51.0 [facility] Centerhemoglobin, [id number] 11:05:00 Test Item Value Reference Range Interpretation Comments hemoglobin, blood (test code = 14.6 g/dL 13.0-17.7 718-7) [facility] Centererythrocyte (RBC) [id number] 11:05:00 Test Item Value Reference Range Interpretation Comments erythrocyte (RBC) count (test 5.26 X10E6/UL 4.14-5.80 code = 789-8) [facility] Centerleukocyte count, zxzxn5243-80-48 11:05:00 Test Item Value Reference Range Interpretation Comments leukocyte count, blood (test 5.7 X10E3/UL 3.4-10.8 code = 6690-2) [facility] Centerhepatitis C antibody, mbxwc0230-02-26 11:05:00 Test Item Value Reference Range Interpretation Comments hepatitis C antibody, serum (test code <0.1 0.0-0.9 = 5199-5) [facility] surface cpgutupr7442-31-59 11:05:00 Test Item Value Reference Range Interpretation Comments hepatitis B surface antibody Non Reactive (test code = 78) [facility] core antibody, [id number] 11:05:00 Test Item Value Reference Range Interpretation Comments hepatitis B core antibody, total Negative Negative (test code = 77) [facility] surface yklrvbv0386-91-06 11:05:00 Test Item Value Reference Range Interpretation Comments hepatitis B surface antigen (test Negative Negative code = 79) [facility] CenterHIV rapid test egbgkvn1453-93-62 10:49:32 Test Item Value Reference Range Interpretation Comments HIV rapid test results (test code = negative 82420) [facility] CenterNeisseria gonorrhoeae DNA [id number] 15:18:00 Test Item Value Reference Range Interpretation Comments Neisseria gonorrhoeae DNA probe Negative Negative (test code = 03787-7) [facility] Centerchlamydia DNA [id number] 15:18:00 Test Item Value Reference Range Interpretation Comments chlamydia DNA probe (test code = Negative Negative 23564-1) [facility] CenterHIV-CMIA (Chemiluminescent Microparticle Immuno Assay) 2019-05-18 13:30:00 Test Item Value Reference Range Interpretation Comments HIV-CMIA (Chemiluminescent Non Reactive Non Reactive Microparticle Immuno Assay) (test code = 082157) [facility] Centerrapid plasma reagin antibody, [id number] 13:30:00 Test Item Value Reference Range Interpretation Comments rapid plasma reagin antibody, Non Reactive Non Reactive serum (test code = 5291-0) [facility] Centeralanine aminotransferase (SGPT), [id number] 13:30:00 Test Item Value Reference Range Interpretation Comments alanine aminotransferase (SGPT), serum 16 1/L 0-44 (test code = 1742-6) [facility] Centeraspartate aminotransferase (SGOT), kvswz1968-92-84 13:30:00 Test Item Value Reference Range Interpretation Comments aspartate aminotransferase (SGOT), 19 1/L 0-40 serum (test code = 1920-8) [facility] Centeralkaline phosphatase, idlax1741-07-13 13:30:00 Test Item Value Reference Range Interpretation Comments alkaline phosphatase, serum (test code 72 1/L 39-117 = 1783-0) [facility] Centerbilirubin, serum, kjhwo1359-31-05 13:30:00 Test Item Value Reference Range Interpretation Comments bilirubin, serum, total (test code 0.6 mg/dL 0.0-1.2 = 1975-2) [facility] Centeralbumin/globulin ratio, kilfi9935-96-07 13:30:00 Test Item Value Reference Range Interpretation Comments albumin/globulin ratio, serum (test 1.8 1.2-2.2 code = 1759-0) [facility] Centerglobulin, [id number] 13:30:00 Test Item Value Reference Range Interpretation Comments globulin, serum (test code = 2336-6) 2.8 1.5-4.5 [facility] Healthalbumin, [id number] 13:30:00 Test Item Value Reference Range Interpretation Comments albumin, serum (test code = 1751-7) 4.9 g/dL 3.5-5.5 [facility] Centerprotein, total, mmwnj3878-00-77 13:30:00 Test Item Value Reference Range Interpretation Comments protein, total, serum (test code = 7.7 g/dL 6.0-8.5 2885-2) [facility] Centercalcium, nnyst7466-08-99 13:30:00 Test Item Value Reference Range Interpretation Comments calcium, serum (test code = 1999-8) 9.7 mg/dL 8.7-10.2 [facility] Centercarbon dioxide, venous [id number] 13:30:00 Test Item Value Reference Range Interpretation Comments carbon dioxide, venous blood (test 23 mmol/L code = 7-1) [facility] Centerchloride, [id number] 13:30:00 Test Item Value Reference Range Interpretation Comments chloride, serum (test code = 102 mmol/L 96-106 5-0) [facility] Centerpotassium, baith5658-94-94 13:30:00 Test Item Value Reference Range Interpretation Comments potassium, serum (test code = 4.4 mmol/L 3.5-5.2 2823-3) [facility]odium, [id number] 13:30:00 Test Item Value Reference Range Interpretation Comments sodium, serum (test code = 2951-2) 141 mmol/L 134-144 [facility]urea nitrogen/creatinine ratio, [id number] 13:30:00 Test Item Value Reference Range Interpretation Comments urea nitrogen/creatinine ratio, serum 13 9-20 (test code = 3097-3) [facility]ereGFR if [id number] 13:30:00 Test Item Value Reference Range Interpretation Comments eGFR if 111 >59 (test code = 18230-7) mL/min/((173/100).m2) [facility] CenterEstimated Glomerular Filtration Rate (calc)2019-05-18 13:30:00 Test Item Value Reference Range Interpretation Comments Estimated Glomerular 96 >59 Filtration Rate (calc) mL/min/((173/100).m2 (test code = 31823-8) ) [facility]ercreatinine, [id number] 13:30:00 Test Item Value Reference Range Interpretation Comments creatinine, serum (test code = 0.98 mg/dL 0.76-1.27 2160-0) [facility]ure[facility] nitrogen, [id number] 13:30:00 Test Item Value Reference Range Interpretation Comments urea nitrogen, blood (test code = 13 mg/dL 6-24 3094-0) [facility] Centerblood glucose, [id number] 13:30:00 Test Item Value Reference Range Interpretation Comments blood glucose, random (test code = 85 mg/dL 65-99 2339-0) [facility] CenterNeisseria gonorrhoeae DNA [id number] 13:42:00 Test Item Value Reference Range Interpretation Comments Neisseria gonorrhoeae DNA probe Negative Negative (test code = 27215-7) [facility] Centerchlamydia DNA [id number] 13:42:00 Test Item Value Reference Range Interpretation Comments chlamydia DNA probe (test code = Negative Negative 72570-4) [facility] CenterHIV-CMIA (Chemiluminescent Microparticle Immuno Assay) 2018-12-06 13:36:00 Test Item Value Reference Range Interpretation Comments HIV-CMIA (Chemiluminescent Non Reactive Non Reactive Microparticle Immuno Assay) (test code = 929573) [facility] Centerrapid plasma reagin antibody, [id number] 13:36:00 Test Item Value Reference Range Interpretation Comments rapid plasma reagin antibody, Non Reactive Non Reactive serum (test code = 5291-0) [facility] Centeralanine aminotransferase (SGPT), [id number] 13:36:00 Test Item Value Reference Range Interpretation Comments alanine aminotransferase (SGPT), serum 16 1/L 0-44 (test code = 1742-6) [facility] Centeraspartate aminotransferase (SGOT), [id number] 13:36:00 Test Item Value Reference Range Interpretation Comments aspartate aminotransferase (SGOT), 20 1/L 0-40 serum (test code = 1920-8) [facility] Centeralkaline phosphatase, [id number] 13:36:00 Test Item Value Reference Range Interpretation Comments alkaline phosphatase, serum (test code 71 1/L 39-117 = 1783-0) [facility] Healthbilirubin, serum, [id number] 13:36:00 Test Item Value Reference Range Interpretation Comments bilirubin, serum, total (test code 0.4 mg/dL 0.0-1.2 = 1975-2) [facility] Healthalbumin/globulin ratio, [id number] 13:36:00 Test Item Value Reference Range Interpretation Comments albumin/globulin ratio, serum (test 1.7 1.2-2.2 code = 1759-0) [facility] Healthglobulin, [id number] 13:36:00 Test Item Value Reference Range Interpretation Comments globulin, serum (test code = 2336-6) 2.6 1.5-4.5 [facility] Healthalbumin, [id number] 13:36:00 Test Item Value Reference Range Interpretation Comments albumin, serum (test code = 1751-7) 4.5 g/dL 3.5-5.5 [facility] Healthprotein, total, [id number] 13:36:00 Test Item Value Reference Range Interpretation Comments protein, total, serum (test code = 7.1 g/dL 6.0-8.5 2885-2) [facility]calcium, [id number] 13:36:00 Test Item Value Reference Range Interpretation Comments calcium, serum (test code = 1999-8) 9.1 mg/dL 8.7-10.2 [facility] Centercarbon dioxide, venous [id number] 13:36:00 Test Item Value Reference Range Interpretation Comments carbon dioxide, venous blood (test 22 mmol/L -29 code = 7-1) [facility] Centerchloride, [id number] 13:36:00 Test Item Value Reference Range Interpretation Comments chloride, serum (test code = 103 mmol/L 96-106 5-0) [facility] Centerpotassium, [id number] 13:36:00 Test Item Value Reference Range Interpretation Comments potassium, serum (test code = 4.4 mmol/L 3.5-5.2 2823-3) [facility]odium, [id number] 13:36:00 Test Item Value Reference Range Interpretation Comments sodium, serum (test code = 2951-2) 140 mmol/L 134-144 [facility]urea nitrogen/creatinine ratio, [id number] 13:36:00 Test Item Value Reference Range Interpretation Comments urea nitrogen/creatinine ratio, serum 10 9-20 (test code = 3097-3) [facility] HealtheGFR if Lggncrsd7323-64-30 13:36:00 Test Item Value Reference Range Interpretation Comments eGFR if 99 >59 (test code = 51348-7) mL/min/((173/100).m2) [facility] CenterEstimated Glomerular Filtration Rate (calc)2018-12-06 13:36:00 Test Item Value Reference Range Interpretation Comments Estimated Glomerular 86 >59 Filtration Rate (calc) mL/min/((173/100).m2 (test code = 64305-9) ) [facility]ercreatinine, [id number] 13:36:00 Test Item Value Reference Range Interpretation Comments creatinine, serum (test code = 1.08 mg/dL 0.76-1.27 2160-0) [facility]ure[facility] nitrogen, [id number] 13:36:00 Test Item Value Reference Range Interpretation Comments urea nitrogen, blood (test code = 11 mg/dL 6-20 3094-0) [facility] Centerblood glucose, [id number] 13:36:00 Test Item Value Reference Range Interpretation Comments blood glucose, random (test code = 81 mg/dL 65-99 2339-0) [facility] Centerrapid plasma reagin antibody, [id number] 16:57:00 Test Item Value Reference Range Interpretation Comments rapid plasma reagin antibody, NON-REACTIVE NON-REACTIVE N serum (test code = 5291-0) [facility] CenterHIV-CMIA (Chemiluminescent Microparticle Immuno Assay) 2018-09-14 16:57:00 Test Item Value Reference Range Interpretation Comments HIV-CMIA (Chemiluminescent NON-REACTIVE NON-REACTIVE N Microparticle Immuno Assay) (test code = 466485) [facility] Centeralanine aminotransferase (SGPT), [id number] 16:57:00 Test Item Value Reference Range Interpretation Comments alanine aminotransferase (SGPT), serum 12 1/L 9-46 N (test code = 1742-6) [facility] Centeraspartate aminotransferase (SGOT), [id number] 16:57:00 Test Item Value Reference Range Interpretation Comments aspartate aminotransferase (SGOT), 14 1/L 10-40 N serum (test code = 1920-8) [facility] Centeralkaline phosphatase, [id number] 16:57:00 Test Item Value Reference Range Interpretation Comments alkaline phosphatase, serum (test code 56 1/L 40-115 N = 1783-0) [facility] Centerbilirubin, serum, [id number] 16:57:00 Test Item Value Reference Range Interpretation Comments bilirubin, serum, total (test code 0.3 mg/dL 0.2-1.2 N = 1975-2) [facility] Centeralbumin/globulin ratio, [id number] 16:57:00 Test Item Value Reference Range Interpretation Comments albumin/globulin ratio, serum 1.5 (calc) 1.0-2.5 N (test code = 1759-0) [facility]erglobulins, serum, [id number] 16:57:00 Test Item Value Reference Range Interpretation Comments globulins, serum, total (test 2.7 G/DL (CALC) 1.9-3.7 N code = 2336-6) [facility] Centeralbumin, [id number] 16:57:00 Test Item Value Reference Range Interpretation Comments albumin, serum (test code = 1751-7) 4.0 g/dL 3.6-5.1 N [facility] Centerprotein, total, [id number] 16:57:00 Test Item Value Reference Range Interpretation Comments protein, total, serum (test code = 6.7 g/dL 6.1-8.1 N 2885-2) [facility] Centercalcium, [id number] 16:57:00 Test Item Value Reference Range Interpretation Comments calcium, serum (test code = 1999-8) 8.9 mg/dL 8.6-10.3 N [facility]ercarbon dioxide, venous [id number] 16:57:00 Test Item Value Reference Range Interpretation Comments carbon dioxide, venous blood (test 26 mmol/L 20-32 N code = 2026-1) [facility] Centerchloride, [id number] 16:57:00 Test Item Value Reference Range Interpretation Comments chloride, serum (test code = 107 mmol/L 98-110 N 2075-0) [facility] Healthpotassium, [id number] 16:57:00 Test Item Value Reference Range Interpretation Comments potassium, serum (test code = 4.1 mmol/L 3.5-5.3 N 2823-3) [facility]odium, [id number] 16:57:00 Test Item Value Reference Range Interpretation Comments sodium, serum (test code = 2951-2) 142 mmol/L 135-146 N [facility] nitrogen/creatinine ratio, [id number] 16:57:00 Test Item Value Reference Range Interpretation Comments urea NOT APPLICABLE (calc) 6-22 nitrogen/creatinine ratio, serum (test code = 3097-3) [facility] CentereGFR if Evgejaxu6028-61-10 16:57:00 Test Item Value Reference Range Interpretation Comments eGFR if 97 > OR = 60 N (test code = 09901-7) mL/min/((173/100).m2) [facility] CenterEstimated Glomerular Filtration Rate (calc)2018-09-14 16:57:00 Test Item Value Reference Range Interpretation Comments Estimated Glomerular 84 > OR = 60 N Filtration Rate (calc) mL/min/((173/100).m2 (test code = 67342-3) ) [facility]ercreatinine, [id number] 16:57:00 Test Item Value Reference Range Interpretation Comments creatinine, serum (test code = 1.10 mg/dL 0.60-1.35 N 2160-0) [facility] nitrogen, [id number] 16:57:00 Test Item Value Reference Range Interpretation Comments urea nitrogen, blood (test code = 16 mg/dL 7-25 N 3094-0) [facility] Centerblood glucose, [id number] 16:57:00 Test Item Value Reference Range Interpretation Comments blood glucose, random (test code = 102 mg/dL 65-99 H 2339-0) [facility] CenterNeisseria gonorrhoeae, throat [id number] 15:13:00 Test Item Value Reference Range Interpretation Comments Neisseria gonorrhoeae, throat Negative Negative culture (test code = 3553) [facility] CenterHIV-CMIA (Chemiluminescent Microparticle Immuno Assay) 2018-05-30 14:04:00 Test Item Value Reference Range Interpretation Comments HIV-CMIA (Chemiluminescent NON-REACTIVE NON-REACTIVE N Microparticle Immuno Assay) (test code = 261329) [facility] Centeralanine aminotransferase (SGPT), [id number] 14:04:00 Test Item Value Reference Range Interpretation Comments alanine aminotransferase (SGPT), serum 13 1/L 9-46 N (test code = 1742-6) [facility] Centeraspartate aminotransferase (SGOT), [id number] 14:04:00 Test Item Value Reference Range Interpretation Comments aspartate aminotransferase (SGOT), 14 1/L 10-40 N serum (test code = 1920-8) [facility] Centeralkaline phosphatase, [id number] 14:04:00 Test Item Value Reference Range Interpretation Comments alkaline phosphatase, serum (test code 64 1/L 40-115 N = 1783-0) [facility] Centerbilirubin, serum, [id number] 14:04:00 Test Item Value Reference Range Interpretation Comments bilirubin, serum, total (test code 0.4 mg/dL 0.2-1.2 N = 1975-2) [facility]eralbumin/globulin ratio, [id number] 14:04:00 Test Item Value Reference Range Interpretation Comments albumin/globulin ratio, serum 1.5 (calc) 1.0-2.5 N (test code = 1759-0) [facility]erglobulins, serum, [id number] 14:04:00 Test Item Value Reference Range Interpretation Comments globulins, serum, total (test 3.0 G/DL (CALC) 1.9-3.7 N code = 2336-6) [facility] Centeralbumin, [id number] 14:04:00 Test Item Value Reference Range Interpretation Comments albumin, serum (test code = 1751-7) 4.5 g/dL 3.6-5.1 N [facility] Centerprotein, total, [id number] 14:04:00 Test Item Value Reference Range Interpretation Comments protein, total, serum (test code = 7.5 g/dL 6.1-8.1 N 2885-2) [facility] Centercalcium, [id number] 14:04:00 Test Item Value Reference Range Interpretation Comments calcium, serum (test code = 1999-8) 9.3 mg/dL 8.6-10.3 N [facility]ercarbon dioxide, venous [id number] 14:04:00 Test Item Value Reference Range Interpretation Comments carbon dioxide, venous blood (test 28 mmol/L 20-32 N code = 7-1) [facility] Healthchloride, [id number] 14:04:00 Test Item Value Reference Range Interpretation Comments chloride, serum (test code = 104 mmol/L 98-110 N 5-0) [facility]potassium, [id number] 14:04:00 Test Item Value Reference Range Interpretation Comments potassium, serum (test code = 4.1 mmol/L 3.5-5.3 N 2823-3) [facility]odium, [id number] 14:04:00 Test Item Value Reference Range Interpretation Comments sodium, serum (test code = 2951-2) 139 mmol/L 135-146 N [facility] nitrogen/creatinine ratio, [id number] 14:04:00 Test Item Value Reference Range Interpretation Comments urea NOT APPLICABLE (calc) 6-22 nitrogen/creatinine ratio, serum (test code = 3097-3) [facility]ereGFR if [id number] 14:04:00 Test Item Value Reference Range Interpretation Comments eGFR if 130 > OR = 60 N (test code = 95695-9) mL/min/((173/100).m2) [facility] CenterEstimated Glomerular Filtration Rate (calc)2018-05-30 14:04:00 Test Item Value Reference Range Interpretation Comments Estimated Glomerular 112 > OR = 60 N Filtration Rate (calc) mL/min/((173/100).m2 (test code = 91954-8) ) [facility]ercreatinine, [id number] 14:04:00 Test Item Value Reference Range Interpretation Comments creatinine, serum (test code = 0.81 mg/dL 0.60-1.35 N 2160-0) [facility] nitrogen, [id number] 14:04:00 Test Item Value Reference Range Interpretation Comments urea nitrogen, blood (test code = 13 mg/dL 7-25 N 3094-0) [facility]blood glucose, [id number] 14:04:00 Test Item Value Reference Range Interpretation Comments blood glucose, random (test code = 101 mg/dL 65-99 H 2339-0) [facility]Chemilumines[facility] Microparticle Immuno Assay) 2018-02-01 11:32:00 Test Item Value Reference Range Interpretation Comments HIV-CMIA (Chemiluminescent NON-REACTIVE NON-REACTIVE N Microparticle Immuno Assay) (test code = 793236) [facility] Centerrapid plasma reagin antibody, [id number] 10:27:00 Test Item Value Reference Range Interpretation Comments rapid plasma reagin antibody, NON-REACTIVE NON-REACTIVE N serum (test code = 5291-0) [facility] (Chemiluminescent Microparticle Immuno Assay) 2017-10-21 10:27:00 Test Item Value Reference Range Interpretation Comments HIV-CMIA (Chemiluminescent NON-REACTIVE NON-REACTIVE N Microparticle Immuno Assay) (test code = 056924) [facility]eralanine aminotransferase (SGPT), [id number] 10:27:00 Test Item Value Reference Range Interpretation Comments alanine aminotransferase (SGPT), serum 16 1/L 9-46 N (test code = 1742-6) [facility] Centeraspartate aminotransferase (SGOT), [id number] 10:27:00 Test Item Value Reference Range Interpretation Comments aspartate aminotransferase (SGOT), 15 1/L 10-40 N serum (test code = 1920-8) [facility] Centeralkaline phosphatase, [id number] 10:27:00 Test Item Value Reference Range Interpretation Comments alkaline phosphatase, serum (test code 67 1/L 40-115 N = 1783-0) [facility]bilirubin, serum, [id number] 10:27:00 Test Item Value Reference Range Interpretation Comments bilirubin, serum, total (test code 0.4 mg/dL 0.2-1.2 N = 1975-2) [facility] Centeralbumin/globulin ratio, [id number] 10:27:00 Test Item Value Reference Range Interpretation Comments albumin/globulin ratio, serum 1.5 (calc) 1.0-2.5 N (test code = 1759-0) [facility] Healthglobulins, serum, [id number] 10:27:00 Test Item Value Reference Range Interpretation Comments globulins, serum, total (test 3.0 G/DL (CALC) 1.9-3.7 N code = 2336-6) [facility] Healthalbumin, [id number] 10:27:00 Test Item Value Reference Range Interpretation Comments albumin, serum (test code = 1751-7) 4.4 g/dL 3.6-5.1 N [facility] Healthprotein, total, [id number] 10:27:00 Test Item Value Reference Range Interpretation Comments protein, total, serum (test code = 7.4 g/dL 6.1-8.1 N 2885-2) [facility]calcium, [id number] 10:27:00 Test Item Value Reference Range Interpretation Comments calcium, serum (test code = 1999-8) 9.6 mg/dL 8.6-10.3 N [facility]ercarbon dioxide, venous [id number] 10:27:00 Test Item Value Reference Range Interpretation Comments carbon dioxide, venous blood (test 26 mmol/L 20-31 N code = 2026-1) [facility] Healthchloride, [id number] 10:27:00 Test Item Value Reference Range Interpretation Comments chloride, serum (test code = 109 mmol/L 98-110 N 5-0) [facility]potassium, [id number] 10:27:00 Test Item Value Reference Range Interpretation Comments potassium, serum (test code = 4.8 mmol/L 3.5-5.3 N 2823-3) [facility]odium, [id number] 10:27:00 Test Item Value Reference Range Interpretation Comments sodium, serum (test code = 2951-2) 143 mmol/L 135-146 N [facility] nitrogen/creatinine ratio, [id number] 10:27:00 Test Item Value Reference Range Interpretation Comments urea NOT APPLICABLE (calc) 6-22 nitrogen/creatinine ratio, serum (test code = 3097-3) [facility] HealtheGFR if Naofymkh1685-86-36 10:27:00 Test Item Value Reference Range Interpretation Comments eGFR if 119 > OR = 60 N (test code = 21268-0) mL/min/((173/100).m2) [facility] CenterEstimated Glomerular Filtration Rate (calc)2017-10-21 10:27:00 Test Item Value Reference Range Interpretation Comments Estimated Glomerular 102 > OR = 60 N Filtration Rate (calc) mL/min/((173/100).m2 (test code = 82791-5) ) [facility]ercreatinine, [id number] 10:27:00 Test Item Value Reference Range Interpretation Comments creatinine, serum (test code = 0.94 mg/dL 0.60-1.35 N 2160-0) [facility] nitrogen, [id number] 10:27:00 Test Item Value Reference Range Interpretation Comments urea nitrogen, blood (test code = 14 mg/dL 7-25 N 3094-0) [facility] Centerblood glucose, [id number] 10:27:00 Test Item Value Reference Range Interpretation Comments blood glucose, random (test code = 64 mg/dL 65-99 L 2339-0) [facility] Centerrapid plasma reagin antibody, [id number] 14:51:00 Test Item Value Reference Range Interpretation Comments rapid plasma reagin antibody, NON-REACTIVE NON-REACTIVE N serum (test code = 5291-0) [facility] CenterHIV-CMIA (Chemiluminescent Microparticle Immuno Assay) 2017-07-21 14:51:00 Test Item Value Reference Range Interpretation Comments HIV-CMIA (Chemiluminescent NON-REACTIVE NON-REACTIVE N Microparticle Immuno Assay) (test code = 099092) [facility] Centeralanine aminotransferase (SGPT), [id number] 14:51:00 Test Item Value Reference Range Interpretation Comments alanine aminotransferase (SGPT), serum 12 1/L 9-46 N (test code = 1742-6) [facility] Centeraspartate aminotransferase (SGOT), [id number] 14:51:00 Test Item Value Reference Range Interpretation Comments aspartate aminotransferase (SGOT), 15 1/L 10-40 N serum (test code = 1920-8) [facility] Centeralkaline phosphatase, [id number] 14:51:00 Test Item Value Reference Range Interpretation Comments alkaline phosphatase, serum (test code 60 1/L 40-115 N = 1783-0) [facility]bilirubin, serum, [id number] 14:51:00 Test Item Value Reference Range Interpretation Comments bilirubin, serum, total (test code 0.4 mg/dL 0.2-1.2 N = 1975-2) [facility] Healthalbumin/globulin ratio, [id number] 14:51:00 Test Item Value Reference Range Interpretation Comments albumin/globulin ratio, serum 1.4 (calc) 1.0-2.5 N (test code = 1759-0) [facility]erglobulins, serum, [id number] 14:51:00 Test Item Value Reference Range Interpretation Comments globulins, serum, total (test 3.2 G/DL (CALC) 1.9-3.7 N code = 2336-6) [facility] Healthalbumin, [id number] 14:51:00 Test Item Value Reference Range Interpretation Comments albumin, serum (test code = 1751-7) 4.6 g/dL 3.6-5.1 N [facility]protein, total, [id number] 14:51:00 Test Item Value Reference Range Interpretation Comments protein, total, serum (test code = 7.8 g/dL 6.1-8.1 N 2885-2) [facility] Centercalcium, [id number] 14:51:00 Test Item Value Reference Range Interpretation Comments calcium, serum (test code = 10.1 mg/dL 8.6-10.3 N 1999-8) [facility]ercarbon dioxide, venous [id number] 14:51:00 Test Item Value Reference Range Interpretation Comments carbon dioxide, venous blood (test 28 mmol/L 20-31 N code = 2026-1) [facility] Centerchloride, [id number] 14:51:00 Test Item Value Reference Range Interpretation Comments chloride, serum (test code = 105 mmol/L 98-110 N 5-0) [facility] Centerpotassium, [id number] 14:51:00 Test Item Value Reference Range Interpretation Comments potassium, serum (test code = 4.3 mmol/L 3.5-5.3 N 2823-3) [facility]odium, [id number] 14:51:00 Test Item Value Reference Range Interpretation Comments sodium, serum (test code = 2951-2) 142 mmol/L 135-146 N [facility] nitrogen/creatinine ratio, [id number] 14:51:00 Test Item Value Reference Range Interpretation Comments urea NOT APPLICABLE (calc) 6-22 nitrogen/creatinine ratio, serum (test code = 3097-3) [facility] CentereGFR if Zoxwaakg3746-16-08 14:51:00 Test Item Value Reference Range Interpretation Comments eGFR if 94 > OR = 60 N (test code = 60978-8) mL/min/((173/100).m2) [facility] CenterEstimated Glomerular Filtration Rate (calc)2017-07-21 14:51:00 Test Item Value Reference Range Interpretation Comments Estimated Glomerular 81 > OR = 60 N Filtration Rate (calc) mL/min/((173/100).m2 (test code = 15692-6) ) [facility]ercreatinine, [id number] 14:51:00 Test Item Value Reference Range Interpretation Comments creatinine, serum (test code = 1.14 mg/dL 0.60-1.35 N 2160-0) [facility]ure[facility] nitrogen, [id number] 14:51:00 Test Item Value Reference Range Interpretation Comments urea nitrogen, blood (test code = 14 mg/dL 7-25 N 3094-0) [facility] Centerblood glucose, [id number] 14:51:00 Test Item Value Reference Range Interpretation Comments blood glucose, random (test code = 67 mg/dL 65-99 N 2339-0) [facility] Centerrapid plasma reagin antibody, [id number] 11:57:00 Test Item Value Reference Range Interpretation Comments rapid plasma reagin antibody, NON-REACTIVE NON-REACTIVE N serum (test code = 5291-0) [facility] Centeralanine aminotransferase (SGPT), [id number] 11:57:00 Test Item Value Reference Range Interpretation Comments alanine aminotransferase (SGPT), serum 17 1/L 9-46 N (test code = 1742-6) [facility] Centeraspartate aminotransferase (SGOT), [id number] 11:57:00 Test Item Value Reference Range Interpretation Comments aspartate aminotransferase (SGOT), 16 1/L 10-40 N serum (test code = 1920-8) [facility] Centeralkaline phosphatase, [id number] 11:57:00 Test Item Value Reference Range Interpretation Comments alkaline phosphatase, serum (test code 74 1/L 40-115 N = 1783-0) [facility]bilirubin, serum, [id number] 11:57:00 Test Item Value Reference Range Interpretation Comments bilirubin, serum, total (test code 0.5 mg/dL 0.2-1.2 N = 1975-2) [facility] Healthalbumin/globulin ratio, [id number] 11:57:00 Test Item Value Reference Range Interpretation Comments albumin/globulin ratio, serum 1.2 (calc) 1.0-2.5 N (test code = 1759-0) [facility]erglobulins, serum, [id number] 11:57:00 Test Item Value Reference Range Interpretation Comments globulins, serum, total (test 3.7 G/DL (CALC) 1.9-3.7 N code = 2336-6) [facility] Healthalbumin, [id number] 11:57:00 Test Item Value Reference Range Interpretation Comments albumin, serum (test code = 1751-7) 4.6 g/dL 3.6-5.1 N [facility] Centerprotein, total, [id number] 11:57:00 Test Item Value Reference Range Interpretation Comments protein, total, serum (test code = 8.3 g/dL 6.1-8.1 H 2885-2) [facility]calc[facility] [id number] 11:57:00 Test Item Value Reference Range Interpretation Comments calcium, serum (test code = 1999-8) 9.2 mg/dL 8.6-10.3 N [facility]ercarbon dioxide, venous [id number] 11:57:00 Test Item Value Reference Range Interpretation Comments carbon dioxide, venous blood (test 30 mmol/L 20-31 N code = 2026-1) [facility] Centerchloride, [id number] 11:57:00 Test Item Value Reference Range Interpretation Comments chloride, serum (test code = 105 mmol/L 98-110 N 5-0) [facility] Healthpotassium, [id number] 11:57:00 Test Item Value Reference Range Interpretation Comments potassium, serum (test code = 4.4 mmol/L 3.5-5.3 N 2823-3) [facility]odium, [id number] 11:57:00 Test Item Value Reference Range Interpretation Comments sodium, serum (test code = 2951-2) 140 mmol/L 135-146 N [facility] Centerurea nitrogen/creatinine ratio, swwnb1165-12-69 11:57:00 Test Item Value Reference Range Interpretation Comments urea NOT APPLICABLE (calc) 6-22 nitrogen/creatinine ratio, serum (test code = 3097-3) [facility] CentereGFR if Hstglyqi6535-74-95 11:57:00 Test Item Value Reference Range Interpretation Comments eGFR if 133 > OR = 60 N (test code = 73120-3) mL/min/((173/100).m2) [facility] CenterEstimated Glomerular Filtration Rate (calc)2017-04-28 11:57:00 Test Item Value Reference Range Interpretation Comments Estimated Glomerular 115 > OR = 60 N Filtration Rate (calc) mL/min/((173/100).m2 (test code = 54958-9) ) [facility]ercreatinine, [id number] 11:57:00 Test Item Value Reference Range Interpretation Comments creatinine, serum (test code = 0.77 mg/dL 0.60-1.35 N 2160-0) [facility] Centerurea nitrogen, [id number] 11:57:00 Test Item Value Reference Range Interpretation Comments urea nitrogen, blood (test code = 16 mg/dL 7-25 N 3094-0) [facility] Centerblood glucose, [id number] 11:57:00 Test Item Value Reference Range Interpretation Comments blood glucose, random (test code = 85 mg/dL 65-99 N 2339-0) [facility] CenterHIV-CMIA (Chemiluminescent Microparticle Immuno Assay) 2017-04-28 11:57:00 Test Item Value Reference Range Interpretation Comments HIV-CMIA (Chemiluminescent NON-REACTIVE NON-REACTIVE N Microparticle Immuno Assay) (test code = 671539) [facility] Centeralanine aminotransferase (SGPT), srqun2459-70-75 10:35:00 Test Item Value Reference Range Interpretation Comments alanine aminotransferase (SGPT), serum 13 1/L 9-46 N (test code = 1742-6) [facility] Centeraspartate aminotransferase (SGOT), [id number] 10:35:00 Test Item Value Reference Range Interpretation Comments aspartate aminotransferase (SGOT), 17 1/L 10-40 N serum (test code = 1920-8) [facility] Centeralkaline phosphatase, [id number] 10:35:00 Test Item Value Reference Range Interpretation Comments alkaline phosphatase, serum (test code 70 1/L 40-115 N = 1783-0) [facility]bilirubin, serum, [id number] 10:35:00 Test Item Value Reference Range Interpretation Comments bilirubin, serum, total (test code 0.6 mg/dL 0.2-1.2 N = 1975-2) [facility] Centeralbumin/globulin ratio, [id number] 10:35:00 Test Item Value Reference Range Interpretation Comments albumin/globulin ratio, serum 1.3 (calc) 1.0-2.5 N (test code = 1759-0) [facility] Centerglobulins, serum, [id number] 10:35:00 Test Item Value Reference Range Interpretation Comments globulins, serum, total (test 3.5 G/DL (CALC) 1.9-3.7 N code = 2336-6) [facility] Healthalbumin, tuztl7882-13-04 10:35:00 Test Item Value Reference Range Interpretation Comments albumin, serum (test code = 1751-7) 4.5 g/dL 3.6-5.1 N [facility] Centerprotein, total, [id number] 10:35:00 Test Item Value Reference Range Interpretation Comments protein, total, serum (test code = 8.0 g/dL 6.1-8.1 N 2885-2) [facility]calcium, [id number] 10:35:00 Test Item Value Reference Range Interpretation Comments calcium, serum (test code = 1999-8) 9.8 mg/dL 8.6-10.3 N [facility] Centercarbon dioxide, venous iduvr8295-70-11 10:35:00 Test Item Value Reference Range Interpretation Comments carbon dioxide, venous blood (test 29 mmol/L 20-31 N code = 7-1) [facility] Healthchloride, erdgc8050-28-73 10:35:00 Test Item Value Reference Range Interpretation Comments chloride, serum (test code = 104 mmol/L 98-110 N 2075-0) [facility] Healthpotassium, [id number] 10:35:00 Test Item Value Reference Range Interpretation Comments potassium, serum (test code = 4.6 mmol/L 3.5-5.3 N 2823-3) [facility]odium, [id number] 10:35:00 Test Item Value Reference Range Interpretation Comments sodium, serum (test code = 2951-2) 140 mmol/L 135-146 N [facility] Centerurea nitrogen/creatinine ratio, zuydx2276-99-96 10:35:00 Test Item Value Reference Range Interpretation Comments urea NOT APPLICABLE (calc) 6-22 nitrogen/creatinine ratio, serum (test code = 3097-3) [facility] CentereGFR if Gqajywzo7890-58-79 10:35:00 Test Item Value Reference Range Interpretation Comments eGFR if 113 > OR = 60 N (test code = 73196-1) mL/min/((173/100).m2) [facility] CenterEstimated Glomerular Filtration Rate (calc)2017-01-17 10:35:00 Test Item Value Reference Range Interpretation Comments Estimated Glomerular 97 > OR = 60 N Filtration Rate (calc) mL/min/((173/100).m2 (test code = 27792-7) ) [facility]ercreatinine, [id number] 10:35:00 Test Item Value Reference Range Interpretation Comments creatinine, serum (test code = 0.98 mg/dL 0.60-1.35 N 2160-0) [facility] Centerurea nitrogen, [id number] 10:35:00 Test Item Value Reference Range Interpretation Comments urea nitrogen, blood (test code = 15 mg/dL 7-25 N 3094-0) [facility] Centerblood glucose, [id number] 10:35:00 Test Item Value Reference Range Interpretation Comments blood glucose, random (test code = 89 mg/dL 65-99 N 2339-0) [facility] CenterHIV-CMIA (Chemiluminescent Microparticle Immuno Assay) 2017-01-17 10:35:00 Test Item Value Reference Range Interpretation Comments HIV-CMIA (Chemiluminescent NON-REACTIVE NON-REACTIVE N Microparticle Immuno Assay) (test code = 905523) [facility] Centerrapid plasma reagin antibody, [id number] 14:20:00 Test Item Value Reference Range Interpretation Comments rapid plasma reagin antibody, Non Reactive Non Reactive serum (test code = 5291-0) [facility] iesryqw2274-26-05 09:35:52 Test Item Value Reference Range Interpretation Comments HIV rapid test results (test code = negative 50811) [facility] CenterNeisseria gonorrhoeae DNA [id number] 18:17:00 Test Item Value Reference Range Interpretation Comments Neisseria gonorrhoeae DNA probe Negative Negative (test code = 02788-0) [facility] Centerchlamydia DNA [id number] 18:17:00 Test Item Value Reference Range Interpretation Comments chlamydia DNA probe (test code = Negative Negative 60613-4) [facility] Centerhepatitis C antibody, [id number] 15:53:00 Test Item Value Reference Range Interpretation Comments hepatitis C antibody, serum (test code <0.1 0.0-0.9 = 5199-5) [facility]-CMIA (Chemiluminescent Microparticle Immuno Assay) 2016-01-29 15:53:00 Test Item Value Reference Range Interpretation Comments HIV-CMIA (Chemiluminescent Non Reactive Non Reactive Microparticle Immuno Assay) (test code = 605508) [facility]agin [facility], [id number] 15:53:00 Test Item Value Reference Range Interpretation Comments rapid plasma reagin antibody, Non Reactive Non Reactive serum (test code = 5291-0) [facility], serum, by PCR, ostucimxcsap4236-68-23 15:53:00 Test Item Value Reference Range Interpretation Comments HIV-1RNA, serum, by PCR, <20 copies/mL quantitative (test code = 51025) [facility] CenterLDL cholesterol, [id number] 15:53:00 Test Item Value Reference Range Interpretation Comments LDL cholesterol, serum (test code = 131 mg/dL 0-99 H 2088-06) [facility] mucywevwmdcl8858-20-48 15:53:00 Test Item Value Reference Range Interpretation Comments very low density lipoproteins (test 27 mg/dL 5-40 code = 2091-7) [facility] CenterHDL cholesterol, [id number] 15:53:00 Test Item Value Reference Range Interpretation Comments HDL cholesterol, serum (test code = 46 mg/dL >39 5-9) [facility]ertriglyceride, serum, wckurlz5035-26-97 15:53:00 Test Item Value Reference Range Interpretation Comments triglyceride, serum, fasting (test 136 mg/dL 0-149 code = 2571-8) [facility]cholesterol, [id number] 15:53:00 Test Item Value Reference Range Interpretation Comments cholesterol, serum (test code = 204 mg/dL 100-199 H 3-3) [facility] Centeralanine aminotransferase (SGPT), rsnme0261-47-27 15:53:00 Test Item Value Reference Range Interpretation Comments alanine aminotransferase (SGPT), serum 16 1/L 0-44 (test code = 1742-6) [facility] Centeraspartate aminotransferase (SGOT), jcloz5209-09-68 15:53:00 Test Item Value Reference Range Interpretation Comments aspartate aminotransferase (SGOT), 15 1/L 0-40 serum (test code = 1920-8) [facility] Centeralkaline phosphatase, [id number] 15:53:00 Test Item Value Reference Range Interpretation Comments alkaline phosphatase, serum (test code 74 1/L 39-117 = 1783-0) [facility]bilirubin, serum, [id number] 15:53:00 Test Item Value Reference Range Interpretation Comments bilirubin, serum, total (test code <0.2 mg/dL 0.0-1.2 = 1975-2) [facility] Centeralbumin/globulin ratio, fksxr6404-56-13 15:53:00 Test Item Value Reference Range Interpretation Comments albumin/globulin ratio, serum (test 1.5 1.1-2.5 code = 1759-0) [facility]erglobulin, [id number] 15:53:00 Test Item Value Reference Range Interpretation Comments globulin, serum (test code = 2336-6) 3.2 1.5-4.5 [facility] Centeralbumin, [id number] 15:53:00 Test Item Value Reference Range Interpretation Comments albumin, serum (test code = 1751-7) 4.8 g/dL 3.5-5.5 [facility] Healthprotein, total, [id number] 15:53:00 Test Item Value Reference Range Interpretation Comments protein, total, serum (test code = 8.0 g/dL 6.0-8.5 2885-2) [facility]calcium, [id number] 15:53:00 Test Item Value Reference Range Interpretation Comments calcium, serum (test code = 1999-8) 9.9 mg/dL 8.7-10.2 [facility]ercarbon dioxide, venous [id number] 15:53:00 Test Item Value Reference Range Interpretation Comments carbon dioxide, venous blood (test 22 mmol/L code = 7-1) [facility] Centerchloride, [id number] 15:53:00 Test Item Value Reference Range Interpretation Comments chloride, serum (test code = 102 mmol/L 97-108 5-0) [facility] Centerpotassium, ueebg1130-09-82 15:53:00 Test Item Value Reference Range Interpretation Comments potassium, serum (test code = 4.1 mmol/L 3.5-5.2 2823-3) [facility] Centersodium, kvuhj3096-27-37 15:53:00 Test Item Value Reference Range Interpretation Comments sodium, serum (test code = 2951-2) 145 mmol/L 134-144 H [facility] Centerurea nitrogen/creatinine ratio, [id number] 15:53:00 Test Item Value Reference Range Interpretation Comments urea nitrogen/creatinine ratio, serum 13 8-19 (test code = 3097-3) [facility] HealtheGFR if Qrfkaagj6017-63-90 15:53:00 Test Item Value Reference Range Interpretation Comments eGFR if 104 >59 (test code = 81692-1) mL/min/((173/100).m2) [facility] CenterEstimated Glomerular Filtration Rate (calc)2016-01-29 15:53:00 Test Item Value Reference Range Interpretation Comments Estimated Glomerular 90 >59 Filtration Rate (calc) mL/min/((173/100).m2 (test code = 84335-0) ) [facility] Healthcreatinine, iyvru1145-80-17 15:53:00 Test Item Value Reference Range Interpretation Comments creatinine, serum (test code = 1.05 mg/dL 0.76-1.27 2160-0) [facility] Healthurea nitrogen, emjkn0766-12-19 15:53:00 Test Item Value Reference Range Interpretation Comments urea nitrogen, blood (test code = 14 mg/dL 6-20 3094-0) [facility] Centerblood glucose, [id number] 15:53:00 Test Item Value Reference Range Interpretation Comments blood glucose, random (test code = 90 mg/dL 65-99 2339-0) [facility] Centerimmature granulocytes, percentage of total cells, blood 2016-01-29 15:53:00 Test Item Value Reference Range Interpretation Comments immature granulocytes, percentage of 0 % total cells, blood (test code = 97786-5) [facility] Centerbasophil count, eirpasmj8724-96-26 15:53:00 Test Item Value Reference Range Interpretation Comments basophil count, absolute (test 0.0 x10E3/uL 0.0-0.2 code = 68591-7) [facility] CenterEosinophil Absolute Uxebx2499-10-00 15:53:00 Test Item Value Reference Range Interpretation Comments Eosinophil Absolute Count (test 0.1 X10E3/UL 0.0-0.4 code = 45514-3) [facility] Centermonocyte count, blood, vgokwogup6158-69-96 15:53:00 Test Item Value Reference Range Interpretation Comments monocyte count, blood, automated 0.6 X10E3/UL 0.1-0.9 (test code = 742-7) [facility] Centerlymphocyte count, blood, tkrekjswz5833-72-38 15:53:00 Test Item Value Reference Range Interpretation Comments lymphocyte count, blood, 2.7 X10E3/UL 0.7-3.1 automated (test code = 731-0) [facility] CenterAbsolute Aujerjqdzku0796-41-87 15:53:00 Test Item Value Reference Range Interpretation Comments Absolute Neutrophils (test code 4.3 X10E3/UL 1.4-7.0 = 47055-7) [facility] Centerbasophils as percent of blood tvjhmseetg6481-18-93 15:53:00 Test Item Value Reference Range Interpretation Comments basophils as percent of blood 0 % leukocytes (test code = 707-0) [facility] Healtheosinophils as percent of blood qphtfcmzcw9645-02-00 15:53:00 Test Item Value Reference Range Interpretation Comments eosinophils as percent of blood 1 % leukocytes (test code = 713-8) [facility] Healthmonocytes as percent of blood tkvpfxixxp8315-06-77 15:53:00 Test Item Value Reference Range Interpretation Comments monocytes as percent of blood 7 % leukocytes (test code = 5905-5) [facility] Centerlymphocytes as percent of blood ngpazqxgem7764-04-09 15:53:00 Test Item Value Reference Range Interpretation Comments lymphocytes as percent of blood 35 % leukocytes (test code = 736-9) [facility] Centerneutrophils as percent of blood wtyylqzqze4424-38-09 15:53:00 Test Item Value Reference Range Interpretation Comments neutrophils as percent of blood 57 % leukocytes (test code = 770-8) [facility] Centerplatelet lfcnq6594-93-84 15:53:00 Test Item Value Reference Range Interpretation Comments platelet count (test code = 286 X10E3/UL 150-379 777-3) [facility] Centerred blood cell distribution emfgv8819-40-26 15:53:00 Test Item Value Reference Range Interpretation Comments red blood cell distribution width 14.6 % 12.3-15.4 (test code = 788-0) [facility] corpuscular hemoglobin concentration, [id number] 15:53:00 Test Item Value Reference Range Interpretation Comments mean corpuscular hemoglobin 31.5 G/DL 31.5-35.7 concentration, RBC (test code = 786-4) [facility] corpuscular hemoglobin, [id number] 15:53:00 Test Item Value Reference Range Interpretation Comments mean corpuscular hemoglobin, RBC 27.4 pg 26.6-33.0 (test code = 785-6) [facility] corpuscular volume, [id number] 15:53:00 Test Item Value Reference Range Interpretation Comments mean corpuscular volume, RBC (test code 87 fL 79-97 = 787-2) [facility] Centerhematocrit, pytdf3494-46-94 15:53:00 Test Item Value Reference Range Interpretation Comments hematocrit, blood (test code = 4544-3) 42.8 % 37.5-51.0 [facility] Centerhemoglobin, [id number] 15:53:00 Test Item Value Reference Range Interpretation Comments hemoglobin, blood (test code = 13.5 g/dL 12.6-17.7 718-7) [facility] Centererythrocyte (RBC) ylemv8004-08-07 15:53:00 Test Item Value Reference Range Interpretation Comments erythrocyte (RBC) count (test 4.93 X10E6/UL 4.14-5.80 code = 789-8) [facility] Centerleukocyte count, [id number] 15:53:00 Test Item Value Reference Range Interpretation Comments leukocyte count, blood (test 7.7 X10E3/UL 3.4-10.8 code = 6690-2) [facility] rapid test epibigy6711-11-04 16:28:22 Test Item Value Reference Range Interpretation Comments HIV rapid test results (test code = negative 57084) [facility] CenterNeisseria gonorrhoeae DNA [id number] 17:01:00 Test Item Value Reference Range Interpretation Comments Neisseria gonorrhoeae DNA probe Negative Negative (test code = 55576-6) [facility] Centerchlamydia DNA [id number] 17:01:00 Test Item Value Reference Range Interpretation Comments chlamydia DNA probe (test code = Negative Negative 59269-9) [facility] Centerhepatitis A antibody, tkmtq3266-04-12 16:55:00 Test Item Value Reference Range Interpretation Comments hepatitis A antibody, total (test Positive Negative A code = 75) [facility] core antibody, mvalo9498-00-09 16:55:00 Test Item Value Reference Range Interpretation Comments hepatitis B core antibody, total Negative Negative (test code = 77) [facility] surface hnmopzn0601-15-32 16:55:00 Test Item Value Reference Range Interpretation Comments hepatitis B surface antigen (test Negative Negative code = 79) [facility]-CMIA (Chemiluminescent Microparticle Immuno Assay) 2015-08-11 16:55:00 Test Item Value Reference Range Interpretation Comments HIV-CMIA (Chemiluminescent Non Reactive Non Reactive Microparticle Immuno Assay) (test code = 980177) [facility] CenterTreponema pallidum antibodies, by particle agglutination 2015-08-11 16:55:00 Test Item Value Reference Range Interpretation Comments Treponema pallidum antibodies, by Positive Negative A particle agglutination (test code = 32959-3) [facility] Centerrapid plasma reagin antibody, sifok0215-23-06 16:55:00 Test Item Value Reference Range Interpretation Comments rapid plasma reagin antibody, serum 1:32 NonRea<1:1 H (test code = 5291-0) [facility] Centerhepatitis B surface ssadeobs6722-57-11 16:55:00 Test Item Value Reference Range Interpretation Comments hepatitis B surface antibody (test Reactive code = 78) [facility] Centeralanine aminotransferase (SGPT), yyvpo2178-50-48 16:55:00 Test Item Value Reference Range Interpretation Comments alanine aminotransferase (SGPT), serum 18 1/L 0-44 (test code = 1742-6) [facility] Centeraspartate aminotransferase (SGOT), peadw3910-06-10 16:55:00 Test Item Value Reference Range Interpretation Comments aspartate aminotransferase (SGOT), 16 1/L 0-40 serum (test code = 1920-8) [facility] Centeralkaline phosphatase, [id number] 16:55:00 Test Item Value Reference Range Interpretation Comments alkaline phosphatase, serum (test code 70 1/L 39-117 = 1783-0) [facility]bilirubin, serum, mtqum1669-72-98 16:55:00 Test Item Value Reference Range Interpretation Comments bilirubin, serum, total (test code <0.2 mg/dL 0.0-1.2 = 1975-2) [facility] Centeralbumin/globulin ratio, aebpw6224-06-83 16:55:00 Test Item Value Reference Range Interpretation Comments albumin/globulin ratio, serum (test 1.6 1.1-2.5 code = 1759-0) [facility]erglobulin, zoklp6150-71-88 16:55:00 Test Item Value Reference Range Interpretation Comments globulin, serum (test code = 2336-6) 2.9 1.5-4.5 [facility] Centeralbumin, [id number] 16:55:00 Test Item Value Reference Range Interpretation Comments albumin, serum (test code = 1751-7) 4.5 g/dL 3.5-5.5 [facility] Healthprotein, total, oqkvy4893-60-82 16:55:00 Test Item Value Reference Range Interpretation Comments protein, total, serum (test code = 7.4 g/dL 6.0-8.5 2885-2) [facility]calcium, [id number] 16:55:00 Test Item Value Reference Range Interpretation Comments calcium, serum (test code = 1999-) 9.5 mg/dL 8.7-10.2 [facility]ercarbon dioxide, venous emokj2725-95-80 16:55:00 Test Item Value Reference Range Interpretation Comments carbon dioxide, venous blood (test 24 mmol/L code = 2026-1) [facility] Centerchloride, ypuuq1849-16-95 16:55:00 Test Item Value Reference Range Interpretation Comments chloride, serum (test code = 104 mmol/L 97-108 5-0) [facility] Centerpotassium, ioixr5681-10-76 16:55:00 Test Item Value Reference Range Interpretation Comments potassium, serum (test code = 4.4 mmol/L 3.5-5.2 2823-3) [facility] Centersodium, [id number] 16:55:00 Test Item Value Reference Range Interpretation Comments sodium, serum (test code = 2951-2) 142 mmol/L 134-144 [facility]urea nitrogen/creatinine ratio, vetrc9239-76-48 16:55:00 Test Item Value Reference Range Interpretation Comments urea nitrogen/creatinine ratio, serum 16 8-19 (test code = 3097-3) [facility] HealtheGFR if Ebewzphn0158-77-43 16:55:00 Test Item Value Reference Range Interpretation Comments eGFR if 128 >59 (test code = 30495-0) mL/min/((173/100).m2) [facility] CenterEstimated Glomerular Filtration Rate (calc)2015-08-11 16:55:00 Test Item Value Reference Range Interpretation Comments Estimated Glomerular 111 >59 Filtration Rate (calc) mL/min/((173/100).m2 (test code = 91514-1) ) [facility]ercreatinine, [id number] 16:55:00 Test Item Value Reference Range Interpretation Comments creatinine, serum (test code = 0.87 mg/dL 0.76-1.27 2160-0) [facility] Centerurea nitrogen, [id number] 16:55:00 Test Item Value Reference Range Interpretation Comments urea nitrogen, blood (test code = 14 mg/dL 6-20 3094-0) [facility] Centerblood glucose, vybpzd4120-20-58 16:55:00 Test Item Value Reference Range Interpretation Comments blood glucose, random (test code = 86 mg/dL 65-99 2339-0) [facility] Centerimmature granulocytes, percentage of total cells, blood 2015-08-11 16:55:00 Test Item Value Reference Range Interpretation Comments immature granulocytes, percentage of 0 % total cells, blood (test code = 80749-3) [facility] Centerbasophil count, hgvozuur6890-37-29 16:55:00 Test Item Value Reference Range Interpretation Comments basophil count, absolute (test 0.0 x10E3/uL 0.0-0.2 code = 54086-0) [facility] CenterEosinophil Absolute Soddo8657-77-52 16:55:00 Test Item Value Reference Range Interpretation Comments Eosinophil Absolute Count (test 0.1 X10E3/UL 0.0-0.4 code = 40280-3) [facility] Centermonocyte count, blood, qpgajuzyo0004-44-18 16:55:00 Test Item Value Reference Range Interpretation Comments monocyte count, blood, automated 0.7 X10E3/UL 0.1-0.9 (test code = 742-7) [facility] Centerlymphocyte count, blood, fzplbehjy9594-33-42 16:55:00 Test Item Value Reference Range Interpretation Comments lymphocyte count, blood, 2.2 X10E3/UL 0.7-3.1 automated (test code = 731-0) [facility] CenterAbsolute Ltizzdmzzaq1012-43-01 16:55:00 Test Item Value Reference Range Interpretation Comments Absolute Neutrophils (test code 4.1 X10E3/UL 1.4-7.0 = 25710-4) [facility] Centerbasophils as percent of blood poaltwhjss1856-17-22 16:55:00 Test Item Value Reference Range Interpretation Comments basophils as percent of blood 0 % leukocytes (test code = 707-0) [facility] Healtheosinophils as percent of blood texvccqnay1212-60-57 16:55:00 Test Item Value Reference Range Interpretation Comments eosinophils as percent of blood 2 % leukocytes (test code = 713-8) [facility] Healthmonocytes as percent of blood fcklsontgd0199-05-00 16:55:00 Test Item Value Reference Range Interpretation Comments monocytes as percent of blood 10 % leukocytes (test code = 5905-5) [facility]lymphocytes as percent of blood ucoxxahgbx3685-28-76 16:55:00 Test Item Value Reference Range Interpretation Comments lymphocytes as percent of blood 31 % leukocytes (test code = 736-9) [facility] Centerneutrophils as percent of blood cqcvybpamp0345-54-17 16:55:00 Test Item Value Reference Range Interpretation Comments neutrophils as percent of blood 57 % leukocytes (test code = 770-8) [facility]platelet [id number] 16:55:00 Test Item Value Reference Range Interpretation Comments platelet count (test code = 274 X10E3/UL 150-379 777-3) [facility]red blood cell distribution ummlw1180-12-74 16:55:00 Test Item Value Reference Range Interpretation Comments red blood cell distribution width 14.5 % 12.3-15.4 (test code = 788-0) [facility] corpuscular hemoglobin concentration, [id number] 16:55:00 Test Item Value Reference Range Interpretation Comments mean corpuscular hemoglobin 32.7 G/DL 31.5-35.7 concentration, RBC (test code = 786-4) [facility], [id number] 16:55:00 Test Item Value Reference Range Interpretation Comments mean corpuscular hemoglobin, RBC 27.7 pg 26.6-33.0 (test code = 785-6) [facility] corpuscular volume, [id number] 16:55:00 Test Item Value Reference Range Interpretation Comments mean corpuscular volume, RBC (test code 85 fL 79-97 = 787-2) [facility]hematocrit, [id number] 16:55:00 Test Item Value Reference Range Interpretation Comments hematocrit, blood (test code = 4544-3) 38.5 % 37.5-51.0 [facility]hemoglobin, [id number] 16:55:00 Test Item Value Reference Range Interpretation Comments hemoglobin, blood (test code = 12.6 g/dL 12.6-17.7 718-7) [facility] Centererythrocyte (RBC) [id number] 16:55:00 Test Item Value Reference Range Interpretation Comments erythrocyte (RBC) count (test 4.55 X10E6/UL 4.14-5.80 code = 789-8) [facility]leukocyte count, sfmxb9712-57-11 16:55:00 Test Item Value Reference Range Interpretation Comments leukocyte count, blood (test 7.1 X10E3/UL 3.4-10.8 code = 6690-2) [facility] Centerspecific gravity, [id number] 15:24:42 Test Item Value Reference Range Interpretation Comments specific gravity, urine (test code = 1.005 5811-5) [facility] CenterpH, urine, mxribkovumwosdpc1025-65-28 15:24:42 Test Item Value Reference Range Interpretation Comments pH, urine, semiquantitative (test code 6.0 = 5803-2) [facility] Centerglucose, urine, xbbwbtgsvwzawyra9536-34-71 15:24:42 Test Item Value Reference Range Interpretation Comments glucose, urine, semiquantitative negative (test code = 5792-7) [facility]bilirubin, rigef7194-42-01 15:24:42 Test Item Value Reference Range Interpretation Comments bilirubin, urine (test code = negative 5770-3) [facility] Centerketones, urine, by test wllhs8669-42-04 15:24:42 Test Item Value Reference Range Interpretation Comments ketones, urine, by test strip (test negative code = 5797-6) [facility] Centerblood in urine (hemoglobin) by xlawvqqv6815-10-81 15:24:42 Test Item Value Reference Range Interpretation Comments blood in urine (hemoglobin) by negative dipstick (test code = 4998) [facility]protein, urine, semiquantitative (dipstick)2014-11-14 15:24:42 Test Item Value Reference Range Interpretation Comments protein, urine, semiquantitative negative (dipstick) (test code = 1753-3) [facility] Centerurobilinogen, urine, semiquantitative (dipstick) 2014-11-14 15:24:42 Test Item Value Reference Range Interpretation Comments urobilinogen, urine, negative semiquantitative (dipstick) (test code = 5818-0) [facility] Centernitrite, urine, ldpcgbunjgweivbr8823-89-40 15:24:42 Test Item Value Reference Range Interpretation Comments nitrite, urine, semiquantitative negative (test code = 5802-4) [facility] Centerleukocyte esterase, urine, by etgtsprr5150-22-86 15:24:42 Test Item Value Reference Range Interpretation Comments leukocyte esterase, urine, by negative dipstick (test code = 5799-2) [facility] Centerappearance, [id number] 15:24:42 Test Item Value Reference Range Interpretation Comments appearance, urine (test code = 5767-9) clear [facility] Centerurine mezxf5874-45-20 15:24:42 Test Item Value Reference Range Interpretation Comments urine color (test code = 5778-6) yellow [facility] rapid test pizasbt2489-59-37 12:36:40 Test Item Value Reference Range Interpretation Comments HIV rapid test results (test code = negative 36037) [facility] CenterNeisseria gonorrhoeae DNA [id number] 14:05:00 Test Item Value Reference Range Interpretation Comments Neisseria gonorrhoeae DNA probe Negative Negative (test code = 04491-1) [facility] Centerchlamydia DNA [id number] 14:05:00 Test Item Value Reference Range Interpretation Comments chlamydia DNA probe (test code = Negative Negative 94273-0) [facility]Chemiluminescent Microparticle Immuno Assay) 2014-10-02 14:05:00 Test Item Value Reference Range Interpretation Comments HIV-CMIA (Chemiluminescent Non Reactive Non Reactive Microparticle Immuno Assay) (test code = 240455) [facility]itis [facility] antibody, [id number] 14:05:00 Test Item Value Reference Range Interpretation Comments hepatitis A antibody, total (test Negative Negative code = 75) [facility]icest[facility] core antibody, agwfe0741-44-55 14:05:00 Test Item Value Reference Range Interpretation Comments hepatitis B core antibody, total Negative Negative (test code = 77) [facility]hepatitis B surface mgckvie9901-92-94 14:05:00 Test Item Value Reference Range Interpretation Comments hepatitis B surface antigen (test Negative Negative code = 79) [facility] Centerhepatitis C antibody, yiqgd0430-69-17 14:05:00 Test Item Value Reference Range Interpretation Comments hepatitis C antibody, serum (test code <0.1 0.0-0.9 = 5199-5) [facility] Centerrapid plasma reagin antibody, [id number] 14:05:00 Test Item Value Reference Range Interpretation Comments rapid plasma reagin antibody, Non Reactive Non Reactive serum (test code = 5291-0) [facility] Centerhepatitis B surface kkmcejre8141-35-33 14:05:00 Test Item Value Reference Range Interpretation Comments hepatitis B surface antibody Non Reactive (test code = 78) [facility] Centeralanine aminotransferase (SGPT), riziq8451-71-23 14:05:00 Test Item Value Reference Range Interpretation Comments alanine aminotransferase (SGPT), serum 10 1/L 0-44 (test code = 1742-6) [facility] Centeraspartate aminotransferase (SGOT), [id number] 14:05:00 Test Item Value Reference Range Interpretation Comments aspartate aminotransferase (SGOT), 16 1/L 0-40 serum (test code = 1920-8) [facility] Centeralkaline phosphatase, mntcc5563-01-19 14:05:00 Test Item Value Reference Range Interpretation Comments alkaline phosphatase, serum (test code 70 1/L 39-117 = 1783-0) [facility]bilirubin, serum, [id number] 14:05:00 Test Item Value Reference Range Interpretation Comments bilirubin, serum, total (test code 0.3 mg/dL 0.0-1.2 = 1975-2) [facility] Centeralbumin/globulin ratio, ptjye3970-40-98 14:05:00 Test Item Value Reference Range Interpretation Comments albumin/globulin ratio, serum (test 1.8 1.1-2.5 code = 1759-0) [facility] Centerglobulin, bpyma0252-25-28 14:05:00 Test Item Value Reference Range Interpretation Comments globulin, serum (test code = 2336-6) 2.7 1.5-4.5 [facility] Healthalbumin, [id number] 14:05:00 Test Item Value Reference Range Interpretation Comments albumin, serum (test code = 1751-7) 4.9 g/dL 3.5-5.5 [facility] Healthprotein, total, [id number] 14:05:00 Test Item Value Reference Range Interpretation Comments protein, total, serum (test code = 7.6 g/dL 6.0-8.5 2885-2) [facility]calcium, [id number] 14:05:00 Test Item Value Reference Range Interpretation Comments calcium, serum (test code = 2000-8) 9.8 mg/dL 8.7-10.2 [facility] Centercarbon dioxide, venous [id number] 14:05:00 Test Item Value Reference Range Interpretation Comments carbon dioxide, venous blood (test 25 mmol/L 18-29 code = 7-1) [facility] Centerchloride, ecsst9616-80-51 14:05:00 Test Item Value Reference Range Interpretation Comments chloride, serum (test code = 102 mmol/L 97-108 5-0) [facility] Centerpotassium, emzfi6880-33-71 14:05:00 Test Item Value Reference Range Interpretation Comments potassium, serum (test code = 4.3 mmol/L 3.5-5.2 2823-3) [facility] Centersodium, kuggm0978-88-16 14:05:00 Test Item Value Reference Range Interpretation Comments sodium, serum (test code = 2951-2) 142 mmol/L 134-144 [facility] Centerurea nitrogen/creatinine ratio, ulczi6231-38-13 14:05:00 Test Item Value Reference Range Interpretation Comments urea nitrogen/creatinine ratio, serum 16 8-19 (test code = 3097-3) [facility] HealtheGFR if Ifavslhs1931-72-31 14:05:00 Test Item Value Reference Range Interpretation Comments eGFR if 134 >59 (test code = 70703-4) mL/min/((173/100).m2) [facility] CenterEstimated Glomerular Filtration Rate (calc)2014-10-02 14:05:00 Test Item Value Reference Range Interpretation Comments Estimated Glomerular 116 >59 Filtration Rate (calc) mL/min/((173/100).m2 (test code = 10410-8) ) [facility] Healthcreatinine, euxsi3020-22-14 14:05:00 Test Item Value Reference Range Interpretation Comments creatinine, serum (test code = 0.79 mg/dL 0.76-1.27 2160-0) [facility] Centerurea nitrogen, [id number] 14:05:00 Test Item Value Reference Range Interpretation Comments urea nitrogen, blood (test code = 13 mg/dL 6-20 3094-0) [facility] Centerblood glucose, ftubll0500-02-69 14:05:00 Test Item Value Reference Range Interpretation Comments blood glucose, random (test code = 93 mg/dL 65-99 2339-0) [facility] Centerimmature granulocytes, percentage of total cells, blood 2014-10-02 14:05:00 Test Item Value Reference Range Interpretation Comments immature granulocytes, percentage of 0 % total cells, blood (test code = 07578-8) [facility] Centerbasophil count, srfmmlsz7767-69-13 14:05:00 Test Item Value Reference Range Interpretation Comments basophil count, absolute (test 0.0 x10E3/uL 0.0-0.2 code = 36808-6) [facility] CenterEosinophil Absolute Msntc3621-69-68 14:05:00 Test Item Value Reference Range Interpretation Comments Eosinophil Absolute Count (test 0.1 X10E3/UL 0.0-0.4 code = 21681-8) [facility] Centermonocyte count, blood, cpidwnbss4070-51-33 14:05:00 Test Item Value Reference Range Interpretation Comments monocyte count, blood, automated 0.5 X10E3/UL 0.1-0.9 (test code = 742-7) [facility] Centerlymphocyte count, blood, ejpiyxzxd3284-98-59 14:05:00 Test Item Value Reference Range Interpretation Comments lymphocyte count, blood, 2.7 X10E3/UL 0.7-3.1 automated (test code = 731-0) [facility] CenterAbsolute Trywzukyior6159-26-42 14:05:00 Test Item Value Reference Range Interpretation Comments Absolute Neutrophils (test code 3.3 X10E3/UL 1.4-7.0 = 62031-3) [facility] Healthbasophils as percent of blood uiihzmngdr3694-26-02 14:05:00 Test Item Value Reference Range Interpretation Comments basophils as percent of blood 0 % leukocytes (test code = 707-0) [facility]ereosinophils as percent of blood crfcxrygmb6423-62-31 14:05:00 Test Item Value Reference Range Interpretation Comments eosinophils as percent of blood 1 % leukocytes (test code = 713-8) [facility] Healthmonocytes as percent of blood bszfozizcn9334-91-96 14:05:00 Test Item Value Reference Range Interpretation Comments monocytes as percent of blood 7 % leukocytes (test code = 5905-5) [facility] Centerlymphocytes as percent of blood npbkafumeq8453-62-83 14:05:00 Test Item Value Reference Range Interpretation Comments lymphocytes as percent of blood 41 % leukocytes (test code = 736-9) [facility] Centerneutrophils as percent of blood mdgzhjcqrx4459-77-72 14:05:00 Test Item Value Reference Range Interpretation Comments neutrophils as percent of blood 51 % leukocytes (test code = 770-8) [facility] Centerplatelet kgfal6302-28-90 14:05:00 Test Item Value Reference Range Interpretation Comments platelet count (test code = 297 X10E3/UL 150-379 777-3) [facility] Centerred blood cell distribution qbxmp2621-56-65 14:05:00 Test Item Value Reference Range Interpretation Comments red blood cell distribution width 14.2 % 12.3-15.4 (test code = 788-0) [facility] corpuscular hemoglobin concentration, [id number] 14:05:00 Test Item Value Reference Range Interpretation Comments mean corpuscular hemoglobin 32.9 G/DL 31.5-35.7 concentration, RBC (test code = 786-4) [facility] corpuscular hemoglobin, [id number] 14:05:00 Test Item Value Reference Range Interpretation Comments mean corpuscular hemoglobin, RBC 27.7 pg 26.6-33.0 (test code = 785-6) [facility] corpuscular volume, [id number] 14:05:00 Test Item Value Reference Range Interpretation Comments mean corpuscular volume, RBC (test code 84 fL 79-97 = 787-2) [facility] Centerhematocrit, ogzxk3523-30-19 14:05:00 Test Item Value Reference Range Interpretation Comments hematocrit, blood (test code = 4544-3) 41.4 % 37.5-51.0 [facility]hemoglobin, djolh8401-00-73 14:05:00 Test Item Value Reference Range Interpretation Comments hemoglobin, blood (test code = 13.6 g/dL 12.6-17.7 718-7) [facility] Centererythrocyte (RBC) [id number] 14:05:00 Test Item Value Reference Range Interpretation Comments erythrocyte (RBC) count (test 4.91 X10E6/UL 4.14-5.80 code = 789-8) [facility] Centerleukocyte count, znnfc1849-24-24 14:05:00 Test Item Value Reference Range Interpretation Comments leukocyte count, blood (test 6.5 X10E3/UL 3.4-10.8 code = 6690-2) [facility] Centerhepatitis B surface pkhbxuj9114-56-35 16:19:00 Test Item Value Reference Range Interpretation Comments hepatitis B surface antigen (test Negative Negative code = 79) [facility] Centerrapid plasma reagin antibody, [id number] 16:19:00 Test Item Value Reference Range Interpretation Comments rapid plasma reagin antibody, Non Reactive Non Reactive serum (test code = 5291-0) [facility] CenterHIV-1/HIV-2 Ab, enxsi4930-57-69 16:19:00 Test Item Value Reference Range Interpretation Comments HIV-1/HIV-2 Ab, serum (test code Non Reactive Non Reactive = 3399) [facility] Centeralanine aminotransferase (SGPT), [id number] 16:19:00 Test Item Value Reference Range Interpretation Comments alanine aminotransferase (SGPT), serum 13 1/L 0-44 (test code = 1742-6) [facility] Centeraspartate aminotransferase (SGOT), ytgbu4290-99-62 16:19:00 Test Item Value Reference Range Interpretation Comments aspartate aminotransferase (SGOT), 14 1/L 0-40 serum (test code = 1920-8) [facility], lyfqh2233-30-26 16:19:00 Test Item Value Reference Range Interpretation Comments alkaline phosphatase, serum (test code 69 1/L 44-102 = 1783-0) [facility] Healthbilirubin, serum, [id number] 16:19:00 Test Item Value Reference Range Interpretation Comments bilirubin, serum, total (test code 0.3 mg/dL 0.0-1.2 = 1975-2) [facility] Healthalbumin/globulin ratio, nchsn7900-67-23 16:19:00 Test Item Value Reference Range Interpretation Comments albumin/globulin ratio, serum (test 1.4 1.1-2.5 code = 1759-0) [facility] Healthglobulin, [id number] 16:19:00 Test Item Value Reference Range Interpretation Comments globulin, serum (test code = 2336-6) 3.3 1.5-4.5 [facility] Healthalbumin, [id number] 16:19:00 Test Item Value Reference Range Interpretation Comments albumin, serum (test code = 1751-7) 4.7 g/dL 3.5-5.5 [facility] Healthprotein, total, zzvho9469-23-81 16:19:00 Test Item Value Reference Range Interpretation Comments protein, total, serum (test code = 8.0 g/dL 6.0-8.5 2885-2) [facility] Healthcalcium, xkhuf0259-64-11 16:19:00 Test Item Value Reference Range Interpretation Comments calcium, serum (test code = 1999-8) 9.7 mg/dL 8.7-10.2 [facility]ercarbon dioxide, venous [id number] 16:19:00 Test Item Value Reference Range Interpretation Comments carbon dioxide, venous blood (test 23 mmol/L code = 7-1) [facility] Centerchloride, ltktv6466-79-95 16:19:00 Test Item Value Reference Range Interpretation Comments chloride, serum (test code = 103 mmol/L 97-108 5-0) [facility] Centerpotassium, grmdv8713-36-97 16:19:00 Test Item Value Reference Range Interpretation Comments potassium, serum (test code = 4.5 mmol/L 3.5-5.2 2823-3) [facility] Centersodium, [id number] 16:19:00 Test Item Value Reference Range Interpretation Comments sodium, serum (test code = 2951-2) 142 mmol/L 134-144 [facility]urea nitrogen/creatinine ratio, gtmvf8784-11-16 16:19:00 Test Item Value Reference Range Interpretation Comments urea nitrogen/creatinine ratio, serum 17 8-19 (test code = 3097-3) [facility] CenterEstimated Glomerular Filtration Rate (calc)2013-01-02 16:19:00 Test Item Value Reference Range Interpretation Comments Estimated Glomerular 93 >59 Filtration Rate (calc) mL/min/((173/100).m2 (test code = 27018-9) ) [facility]ercreatinine, [id number] 16:19:00 Test Item Value Reference Range Interpretation Comments creatinine, serum (test code = 1.05 mg/dL 0.76-1.27 2160-0) [facility] Centerurea nitrogen, leoha4187-15-10 16:19:00 Test Item Value Reference Range Interpretation Comments urea nitrogen, blood (test code = 18 mg/dL 6-20 3094-0) [facility] Centerblood glucose, yhwzyp0366-32-02 16:19:00 Test Item Value Reference Range Interpretation Comments blood glucose, random (test code = 93 mg/dL 65-99 2339-0) [facility] Centerhepatitis B surface jomuwgp2363-42-15 12:11:00 Test Item Value Reference Range Interpretation Comments hepatitis B surface antigen (test Negative Negative code = 79) [facility] Centerrapid plasma reagin antibody, [id number] 12:11:00 Test Item Value Reference Range Interpretation Comments rapid plasma reagin antibody, Non Reactive Non Reactive serum (test code = 5291-0) [facility] CenterHIV-1/HIV-2 Ab, [id number] 12:11:00 Test Item Value Reference Range Interpretation Comments HIV-1/HIV-2 Ab, serum (test code Non Reactive Non Reactive = 3399) [facility] Centeralanine aminotransferase (SGPT), ekuol0115-78-86 12:11:00 Test Item Value Reference Range Interpretation Comments alanine aminotransferase (SGPT), serum 18 1/L 0-44 (test code = 1742-6) [facility] Centeraspartate aminotransferase (SGOT), qxicl9635-39-33 12:11:00 Test Item Value Reference Range Interpretation Comments aspartate aminotransferase (SGOT), 17 1/L 0-40 serum (test code = 1920-8) [facility] Centeralkaline phosphatase, hjfzs5092-75-79 12:11:00 Test Item Value Reference Range Interpretation Comments alkaline phosphatase, serum (test code 74 1/L 25-150 = 1783-0) [facility]bilirubin, serum, uaggv9965-40-70 12:11:00 Test Item Value Reference Range Interpretation Comments bilirubin, serum, total (test code 0.3 mg/dL 0.0-1.2 = 1975-2) [facility] Healthalbumin/globulin ratio, vojmc8732-25-69 12:11:00 Test Item Value Reference Range Interpretation Comments albumin/globulin ratio, serum (test 1.4 1.1-2.5 code = 1759-0) [facility] Healthglobulin, [id number] 12:11:00 Test Item Value Reference Range Interpretation Comments globulin, serum (test code = 2336-6) 3.4 1.5-4.5 [facility] Healthalbumin, [id number] 12:11:00 Test Item Value Reference Range Interpretation Comments albumin, serum (test code = 1751-7) 4.9 g/dL 3.5-5.5 [facility]protein, total, wwvmh4360-40-27 12:11:00 Test Item Value Reference Range Interpretation Comments protein, total, serum (test code = 8.3 g/dL 6.0-8.5 2885-2) [facility]calcium, gkftl4455-85-17 12:11:00 Test Item Value Reference Range Interpretation Comments calcium, serum (test code = 1999-8) 9.7 mg/dL 8.7-10.2 [facility] Centercarbon dioxide, venous flkic3858-88-27 12:11:00 Test Item Value Reference Range Interpretation Comments carbon dioxide, venous blood (test 25 mmol/L 20-32 code = 2026-1) [facility] Centerchloride, [id number] 12:11:00 Test Item Value Reference Range Interpretation Comments chloride, serum (test code = 102 mmol/L 97-108 5-0) [facility] Centerpotassium, yrmst7330-47-66 12:11:00 Test Item Value Reference Range Interpretation Comments potassium, serum (test code = 4.2 mmol/L 3.5-5.2 2823-3) [facility] Centersodium, wdcxj8410-15-56 12:11:00 Test Item Value Reference Range Interpretation Comments sodium, serum (test code = 2951-2) 143 mmol/L 134-144 [facility]urea nitrogen/creatinine ratio, anslp4591-42-56 12:11:00 Test Item Value Reference Range Interpretation Comments urea nitrogen/creatinine ratio, serum 16 8-19 (test code = 3097-3) [facility] CenterEstimated Glomerular Filtration Rate (calc)2012-10-09 12:11:00 Test Item Value Reference Range Interpretation Comments Estimated Glomerular 112 >59 Filtration Rate (calc) mL/min/((173/100).m2 (test code = 30003-9) ) [facility]ercreatinine, [id number] 12:11:00 Test Item Value Reference Range Interpretation Comments creatinine, serum (test code = 0.89 mg/dL 0.76-1.27 2160-0) [facility] Centerurea nitrogen, xivzl5971-24-17 12:11:00 Test Item Value Reference Range Interpretation Comments urea nitrogen, blood (test code = 14 mg/dL 6-20 3094-0) [facility] Centerblood glucose, atbhqi2057-71-28 12:11:00 Test Item Value Reference Range Interpretation Comments blood glucose, random (test code = 101 mg/dL 65-99 H 2339-0) [facility]
--- OUTSIDE RECORDS SUMMARY | 2020-04-08 20:40 | XMS REPORT ---
:1980 Author Name Messaging Address Unavailable Unavailable , Care Team Providers Name Role Phone Diamond Unavailable [phone] PROBLEMS Condition Status Date Provider Notes Bipolar 2 disorder active Nargis Cade Screening for metabolic active Nargis Cade disease Screening for lipid active Nargis Cade disorder Screening, diabetes active Nargis Cade mellitus Screening for thyroid active Nargis Cade disorder Std screening active Gil Hosea High risk sexual completed - Alba Diamond behavior Preventative health care active Audrey Sharp Rhinosinusitis, allergic active Rafita Franklin'Wilman Exposure to Influenza completed - Alba Diamond BMI 23.0-23.9 active Rafita Franklin'Wilman Medication, skilled nursing active Rafita Pringle use [place] Syphilis, hx of active Rafita Franklin'Wilman Preventative health care completed - Rafita Pringle [place] Hydronephrosis, right active Antoinette Hodge Nephrolithiasis, Left active Antoinette Hodge 2 sto bette in lower pole of left kidney measuring betwe en 3 to 4 mm n size. N o hydronephrosis noted on the left. Nephrolithiasis-Right, active Antoinette Hodge 5 X 4 mm stone in ureteral proximal R uret er causing mild to moderate right hydronephrosis. Additional ston e noted in R upper pole calyxes of R ki dney (2X 3mm). Anot her 2mm stone @ R urete ral orifice almost in urinary bladder . VACCINATION AGAINST completed - Antoinette Hodge HEPATITIS A&B #1 COUNSELING HUMAN completed - Rafita Pringle PrEP IMMUNODEFICIENCY VIRUS [place]man COUNSELING Pre-Exposure Prophylaxis active Renetta stubbs z72.52 ENCOUNTERS Date Type Provider Location Encounter Diagn osis Ambulatory Co Treesa Echevarria UNK - Encounter Ambulatory Alba Diamond Alba UNK - Encounter Diamond Renetta Fitzpatrick MedAdherence Ambulatory Alba Diamond Alba UNK - Encounter Diamond [facility] Ambulatory Alba Diamond Alba UNK - Encounter Diamond [facility] Ambulatory Nargis Mohamud Screening for t hyroid - Encounter Nargis Mohamud disorderScreeni ng, diabetes mellitusScreeni ng for lipid disorderScreeni ng for metabolic disea seBipolar 2 disorder Ambulatory Alba Diamond Alba UNK - Encounter Diamond Alba Garcia MedAdherence Ambulatory Alba Diamond Alba UNK - Encounter Diamond Alba Garcia MedAdherence Ambulatory Co Teresa Echevarria UNK - Encounter Ambulatory Alba Diamond Alba UNK - Encounter Diamond Ambulatory Alba Diamond Alba UNK - Encounter Diamond Ambulatory [facility] UNK - Encounter Services Provider Jeremiah Marroquin Ambulatory Alba Diamond Alba UNK - Encounter Diamond [facility] Ambulatory Alba Diamond Alba UNK - Encounter Diamond [facility] Ambulatory Alba Diamond Alba UNK - Encounter Diamond Christal Valdez Ambulatory [facility] UNK - Encounter Services Provider Jeremiah Marroquin Ambulatory Alba Diamond Alba UNK - Encounter Diamond [facility] Ambulatory Alba Sultanaparkp Willis UNK - Encounter Diamond [facility] Ambulatory Alba Diamond Mary UNK - Encounter Diamond Teena Kristofer Ambulatory Alba Diamond Alba UNK - Encounter Diamond Ryan Cornell MedAdherence, Ambulatory Alba Sultanapard Alba UNK - Encounter Diamond Magi Elzbieta MedAdherence, Ambulatory Sandip Crum UNK - Encounter Ambulatory Sandip Crum UNK - Encounter Ambulatory Evette Zavala UNK - Encounter Ambulatory Alba Sultanaparkp Willis UNK - Encounter Diamond [facility] Ambulatory Alba [place] Willis UNK - Encounter Diamond [facility] Ambulatory Alba [place] Willis UNK - Encounter Diamond Ambulatory Alba Sultanap[place]p Willis Exposure t o InfluenzaHigh - Encounter Diamond Lisandra risk sexual be havior Webster Ambulatory Gil Jc UNK - Encounter Gil Hosea [facility] Ambulatory [facility] UNK - Encounter Services Provider Jeremiah Marroquin Ambulatory [facility] UNK - Encounter Services Provider Jeremiah Marroquin Ambulatory [facility] UNK - Encounter Services Provider Jeremiah Marroquin Ambulatory Gilradha Cortesey UNK - Encounter Gilradha Jc [facility] Ambulatory Gil Hosea UNK - Encounter Gil Jc Ambulatory Gil Hosea High risk sexu al behaviorStd - Encounter Gil Jc screening Nancy Valdez Ambulatory [facility] UNK - Encounter Services Provider Jeremiah Marroquin Ambulatory Rafita Pino O'[place]man UNK - Encounter Rafita Pino [place] [facility] Lon Garrison Ambulatory [facility] UNK - Encounter Services Provider Jeremiah Marroquin Ambulatory Rafita Pino [place] UNK - Encounter Rafita Pino [place] [facility] Ambulatory Rafita Pino [place] UNK - Encounter Rafita Pino [place] [facility] Ambulatory [facility] UNK - Encounter Services Provider Jeremiah Marroquin Ambulatory [facility] UNK - Encounter Services Provider Jeremiah Marroquin Ambulatory [facility] UNK - Encounter Services Provider Jeremiah Marroquin Ambulatory Rafita Pringle [place] Prevent [facility] - Encounter Rafita Pino [place] Audrey Sharp Audrey Sharp Ambulatory [facility] UNK - Encounter Services Provider Jeremiah Marroquin Ambulatory Lilly Luciano UNK - Encounter Ambulatory Rafita Pino [place] UNK - Encounter Rafita Pino [place] Ambulatory Rafita Pino [place] UNK - Encounter Rafita Pringle [place] [facility] Ambulatory Rafita Pino [place] UNK - Encounter Rafita Pino [place] [facility] Ambulatory [facility] UNK - Encounter Services Provider Jeremiah Marroquin Ambulatory Rafita Pino [place] UNK - Encounter Rafita Pino [place] [facility] Ambulatory Rafita Pino [place] UNK - Encounter Rafita Pino [place] Ambulatory Rafita Pino [place] Exposure to - Encounter Rafita Pino [place] Influenza Rhinosinusitis, Dmitri Clint allergic Ambulatory [facility] UNK - Encounter Services Provider Jeremiah Marroquin Ambulatory Rafita Pringle [place] UNK - Encounter Rafita Pringle [place] Ambulatory [facility] UNK - Encounter Services Provider Jeremiah Marroquin Ambulatory Rafita Pringle [place] UNK - Encounter Rafita Pringle [place] [facility] Ambulatory [facility] UNK - Encounter Services Provider Jeremiah Marroquin Ambulatory Rafita Pringle [place] UNK - Encounter Rafita Pringle [place] Ambulatory [facility] UNK - Encounter Services Provider Jeremiah Marroquin Ambulatory Rafita Pringle [place] UNK - Encounter Rafita Pringle [place] [facility] Ambulatory [facility] UNK - Encounter Services Provider Jeremiah Marroquin Ambulatory [facility] UNK - Encounter Services Provider Jeremiah Marroquin Ambulatory Rafita Pringle [place] UNK - Encounter Rafita Pringle [place] Link[facility] Ry [place] Ambulatory Rafita Pringle [place] UNK - Encounter Rafita Pringle [place] Magi Kimball Ambulatory Rafita Pringle [place] UNK - Encounter Rafita Pringle [place] [facility] Ambulatory Rafita Pringle [place] UNK - Encounter Rafita Pringle [place] [facility] Ambulatory Rafita Pringel [place] UNK - Encounter Rafita Pringle [place] Magi Kimball Ambulatory Rafita Pino [place] UNK - Encounter Rafita Pringle [place] [facility] Ambulatory Rafita Pino [place] UNK - Encounter Rafita Pringle [place] Ambulatory [facility] UNK - Encounter Services Provider Jeremiah Marroquin Ambulatory Rafita Pringle [place] UNK - Encounter Rafita Pringle [place] Ambulatory Rafita Pringle [place] COUNSELIN G HUMAN - Encounter Rafita Pringle [place] IMMUNODEF ICIENCY VIRUS Dmitri Jaramillo COUNSELINGPreve [facility] careSyphilis, h x ofBMI 23.0-23.9 Ambulatory [facility] UNK - Encounter Services Provider Jeremiah Marroquin Ambulatory Rafita Pringle [place] UNK - Encounter Rafita Franklin'Wilman [facility] Ambulatory [facility] UNK - Encounter Services Provider Jeremiah Marroquin Ambulatory [facility] UNK - Encounter Services Provider Jeremiah Marroquin Ambulatory Renetta Shrikanth UNK - Encounter Renetta Shrikanth Ambulatory [facility] UNK - Encounter Services Provider Eugenie Karthik Ambulatory Renetta Shrikanth Pre-Exposu re Prophylaxis - Encounter Renetta Shrikanth z72.52 Gely Pringle [place] Rafita Pringle [place] Ambulatory Antoinette Ayesha UNK - Encounter Antoinette Ayesha [facility] Ambulatory Antoinette Ayesha UNK - Encounter Antoinette Ayesha [facility] Ambulatory Rafita Pringle [place] UNK - Encounter Rafita Franklin'Wilman [facility] Ambulatory Kacie Welch UNK - Encounter Ambulatory Rafita Pringle [place] UNK - Encounter Rafita Pringle [place] [facility] Ambulatory [facility] UNK - Encounter Services Provider Jeremiah Marroquin Ambulatory Rafita Pringle [place] UNK - Encounter Rafita Franklin'Wilman Ambulatory [facility] UNK - Encounter Services Provider Eugenie Karthik Ambulatory [facility] UNK - Encounter Services Provider Eugenie Karthik Ambulatory Rafita Espinal Pre-Expos ure Prophylaxis - Encounter Rafita Espinal z72.52Med ication, terminal operations manager Dmitri Clint use Ambulatory [facility] UNK - Encounter Services Provider Jeremiah Marroquin Ambulatory Rafita Espinal UNK - Encounter Rafita Espinal [facility] Ambulatory Stephanie Kimball UNK - Encounter [facility] Ambulatory Rafita Espinal UNK - Encounter Rafita Espinal Ambulatory Rafiat Espinal Syphilis, hx of - Encounter Rafita Espinal Dmitri Clint Ambulatory [facility] UNK - Encounter Services Provider Jeremiah Marroquin Ambulatory Stephanie Clementee Preventati ve health care - Encounter Nithin Ambulatory Jeremiah Marroquin UNK - Encounter Ambulatory Daphne Coronado UNK - Encounter [facility] Ambulatory Antoinette Sternek UNK - Encounter Antoinette Hodge Ambulatory Daphne Coronado UNK - Encounter Antoinette Sternek Antoinette Ayesha Ambulatory Antoinette Ayesha UNK - Encounter Antoinette Ayesha Ambulatory Antoinette Ayesha UNK - Encounter Antoinette Hodge Ambulatory Jeremiah Marroquin UNK - Encounter Ambulatory Jeremaih Marroquin UNK - Encounter Ambulatory Antoinette Sternek UNK - Encounter Antoinette Ayesha [facility] Mirta Ramos Ambulatory Antoinette Hodge Nephrolithiasi s-Right, - Encounter Antoinette Hodge ureteralNephro lithiasis, Lilly Mustapha LeftHydronep hrosis, right Ambulatory Jeremiah Marroquin UNK - Encounter Ambulatory Jeremiah Marroquin UNK - Encounter Ambulatory Antoinette Hodge UNK - Encounter Antoinette Hodge [facility] Ambulatory Zuelma Henderson UNK - Encounter Ambulatory Jeremiah Hutchisonf UNK - Encounter Ambulatory Antoinette Hodge UNK - Encounter Antoinette Sternek [facility] Ambulatory Antoinette Sternek UNK - Encounter Antoinette Sternek [facility] Ambulatory Jeremiah Andrewpeteragnieszka UNK - Encounter Ambulatory Antoinette Sternek UNK - Encounter Antoinette Sternek [facility] Ambulatory Jeremiah Marroquin UNK - Encounter Ambulatory Antoinette Hodge VACCINATION AG AINST HEPATITIS - Encounter Antoinette Hodge A&B #1 Lilly Mustapha Ambulatory Tucker Anila UNK - Encounter Ambulatory Nelson Gomes UNK - Encounter Ambulatory Nelson Mcgovernarbkevan UNK - Encounter [facility] Ambulatory Nelson Mcgovernarbkevan UNK - Encounter [facility] Ambulatory Nelson Mcgovernarbkevan UNK - Encounter [facility]Logic Ambulatory Nelson Mcgovernarbkevan UNK - Encounter [facility] Ambulatory Nelson Mcgovernarberg UNK - Encounter Per Collins Ambulatory Thee Arthur UNK - Encounter Ambulatory Nelson Mcgovernarbkevan UNK - Encounter [facility]Log[facility] Ambulatory Jt Lu UNK - Encounter Ambulatory Alba Willis UNK - Encounter Diamond [facility]Logic Ambulatory Cynthia Simmons UNK - Encounter Ambulatory Cynthia Simmons UNK - Encounter Ambulatory Paul Alvarenga UNK - Encounter Ambulatory Alba Willis UNK - Encounter Diamond Colette Rubioricia Tao Ambulatory Cynthia Simmons COUNSELING HUMAN - Encounter IMMUNODEFICIENC Y VIRUS COUNSELING Ambulatory Cynthia Simmons UNK - Encounter Ambulatory Adwoa Marcelo UNK - Encounter Yuridia Foley Ambulatory Alba Willis UNK - Encounter Diamondkp Lott Silke Rubioricia Tao Ambulatory Lon Garrison UNK - Encounter [facility]Log[facility] Ambulatory Lon Garrison Evette UNK - Encounter Guillermo Ambulatory Cynthia Simmons UNK - Encounter Ambulatory Paul Alvarenga UNK - Encounter Ambulatory Kenny White UNK - Encounter [facility]Log[facility] Ambulatory Kenny White UNK - Encounter [facility] Ambulatory Kenny Quinteros UNK - Encounter Mark Ambulatory Kenny White UNK - Encounter [facility]Log[facility] Ambulatory Paul Alvarenga Pre-Exposure Pr ophylaxis - Encounter z72.52 Ambulatory Cynthia Simmons UNK - Encounter VITAL SIGNS Date Observation Value Provider temperature site oral Lisandra Webster " oxygen saturation, oximetry 97 % Nanc y Webster " method used to obtain blood pressure automatic Lisandra Webster " Blood Pressure Position 01 sitting Lisandra Webster " blood pressure, site #1 right arm Lisandra Ve ntura " blood pressure, diastolic 90 mm[Hg] Lisandra Webster " blood pressure, systolic 131 mm[Hg] Lisandra V entura " respiratory rate E&M 16 /min Lisandra Ventu ra " pulse rate 81 /min Lisandra Webster " temperature E&M 98.0 [degF] Lisandra Webster " weight E&M 160 lbs. Lisandra Webster " weight in kilograms E&M 72.73 kg Lisandra Ve ntura " height E&M 67 [in_i] Lisandra Webster " height in centimeters E&M 170.18 cm Lisandra Webster oxygen saturation, oximetry 96 % Michelle Valdez " blood pressure, diastolic 78 mm[Hg] Anthonyise la Valdze " blood pressure, systolic 116 mm[Hg] Jalenl a Avldez " respiratory rate E&M 12 /min Anthonyisela Si lva " pulse rate 99 /min Anthonyisela Valdez " temperature E&M 98 [degF] Anthonyisela Valdez " weight E&M 163 lbs. Anthonyisela Valdez " weight in kilograms E&M 74.09 kg Anthonyisela Valdez " method used to obtain blood pressure automatic Nancy Erasmo " Blood Pressure Position 01 sitting Vanessahem i Erasmo " blood pressure, site #1 right arm Nancy S ammaurice " temperature site oral Nancy Erasmo " height E&M 67 [in_i] Nancy Erasmo " height in centimeters E&M 170.18 cm Nancy Zimmerman blood pressure, diastolic 79 mm[Hg] Dmitri Clint " blood pressure, systolic 119 mm[Hg] Dmitri C allis " pulse rate 83 /min Dmitri Clint " weight E&M 154 lbs. Dmitri Clint " weight in kilograms E&M 70 kg Dmitri Ca llis " oxygen saturation, oximetry 98 % Erro n Clint " temperature E&M 97.8 [degF] Dmitri Clint " method used to obtain blood pressure automatic Dmitri Clint " temperature site tympanic Dmitri Clint " Blood Pressure Position 01 sitting Dmitri Clint " blood pressure, site #1 right arm Dmitri Ca llis " height E&M 67 [in_i] Dmitri Clint " height in centimeters E&M 170.18 cm Dmitri Clint blood pressure, diastolic 74 mm[Hg] Dmitri Clint " blood pressure, systolic 137 mm[Hg] Dmitri C allis " blood pressure, site #1 right arm Dmitri Ca llis " Blood Pressure Position 01 sitting Dmitri Clint " temperature site tympanic Dmitri Clint " method used to obtain blood pressure automatic Dmitri Clint " pulse rate 93 /min Dmitri Clint " oxygen saturation, oximetry 98 % Erro n Clint " temperature E&M 97.2 [degF] Dmitri Clint " weight E&M 149 lbs. Dmitri Clint " weight in kilograms E&M 67.73 kg Dmitri Ca llis " height E&M 67 [in_i] Dmitri Clint " height in centimeters E&M 170.18 cm Dmitri Clint blood pressure, diastolic 76 mm[Hg] Gely Lopez " blood pressure, systolic 110 mm[Hg] Gely Lopez " oxygen saturation, oximetry 98 % Alhaji Lopez " pulse rate 86 /min Gely Lopez " temperature E&M 96.5 [degF] Gely John " weight E&M 156.50 lbs. Gely Lopez " weight in kilograms E&M 71.14 kg Gely serna " method used to obtain blood pressure automatic Gely Lopez " Blood Pressure Position 01 sitting Keo Lopez " blood pressure, site #1 left arm Gely serna " temperature site tympanic Gely farmer " height E&M 67 [in_i] Gely Lopez " height in centimeters E&M 170.18 cm Gely Lopez pulse rate 72 /min Dmitri Clint " blood pressure, diastolic 83 mm[Hg] Dmitri Clint " blood pressure, systolic 128 mm[Hg] Dmitri C allis " oxygen saturation, oximetry 99 % Erro n Clint " temperature E&M 97.9 [degF] Dmitri Clint " weight E&M 157.25 lbs. Dmitri Clint " weight in kilograms E&M 71.48 kg Dmitri Ca llis " blood pressure, site #1 right arm Dmitri Ca llis " Blood Pressure Position 01 sitting Dmitri Clint " method used to obtain blood pressure automatic Dmitri Clint " temperature site tympanic Dmitri Clint " height E&M 67 [in_i] Dmitri Clint " height in centimeters E&M 170.18 cm Dmitri Clint pulse rate 73 /min Dmitri Clint " blood pressure, diastolic 75 mm[Hg] Dmitri Clint " blood pressure, systolic 127 mm[Hg] Dmitri C allis " oxygen saturation, oximetry 98 % Erro n Clint " temperature E&M 97.4 [degF] Dmitri Clint " weight E&M 157.50 lbs. Dmitri Clint " weight in kilograms E&M 71.59 kg Dmitri Ca llis " height E&M 67 [in_i] Dmitri Clint " height in centimeters E&M 170.18 cm Dmitri Clint " blood pressure, site #1 right arm Dmitri Ca llis " Blood Pressure Position 01 sitting Dmitri Clint " method used to obtain blood pressure automatic Dmitri Clint " temperature site tympanic Dmitri Clint weight E&M 157.19 lbs. Lilly Luciano " weight in kilograms E&M 71.45 kg Lilly cervantes " blood pressure, diastolic 77 mm[Hg] Lilly Luciano " blood pressure, systolic 119 mm[Hg] Lilly Luciano " oxygen saturation, oximetry 96 % Uche Serrano " pulse rate 87 /min Lilly Luciano " temperature E&M 97.4 [degF] Lilly Luciano " method used to obtain blood pressure automatic Lilly Luciano " Blood Pressure Position 01 sitting Courteny Luciano " blood pressure, site #1 right arm Lilly cervantes " temperature site temporal Lilly Luciano " height E&M 67 [in_i] Lilly Luciano " height in centimeters E&M 170.18 cm Lilly Luciano oxygen saturation, oximetry 95 % Uche Serrano " pulse rate 96 /min Lilly Luciano " weight E&M 155.50 lbs. Lilly Luciano " weight in kilograms E&M 70.68 kg Lilly cervantes " blood pressure, diastolic 75 mm[Hg] Lilly Luciano " blood pressure, systolic 118 mm[Hg] Lilly Luciano " temperature E&M 97.5 [degF] Lilly Luciano " method used to obtain blood pressure automatic Lilly Luciano " Blood Pressure Position 01 sitting Courtney Luciano " blood pressure, site #1 right arm Lilly cervantes " temperature site temporal Lilly Luciano " height E&M 67 [in_i] Lilly Luciano " height in centimeters E&M 170.18 cm Lilly Luciano blood pressure, diastolic 78 mm[Hg] Farooq ia Tao " blood pressure, systolic 112 mm[Hg] Patrici a Tao " blood pressure, site #1 right arm Frieda Tao " Blood Pressure Position 01 sitting Patri torres Tao " method used to obtain blood pressure manual Frieda Tao " temperature site oral Frieda Jarami llo " temperature E&M 99.5 [degF] Frieda Jaramil lo " pulse rate 93 /min Frieda Jaramil lo " oxygen saturation, oximetry 97 % Patr icia Tao " weight E&M 151.38 lbs. Frieda Jaramil lo " weight in kilograms E&M 68.81 kg Frieda Tao " height E&M 67 [in_i] Frieda Jaramil lo " height in centimeters E&M 170.18 cm Farooq ia Tao blood pressure, diastolic 78 mm[Hg] Farooq ia Tao " blood pressure, systolic 110 mm[Hg] Patrici a Tao " blood pressure, site #1 right arm Frieda Tao " Blood Pressure Position 01 sitting Patri torres Tao " method used to obtain blood pressure manual Frieda Tao " temperature site oral Frieda Jarami llo " pulse rate 95 /min Frieda Jaramil lo " temperature E&M 98.7 [degF] Frieda Jaramil lo " oxygen saturation, oximetry 96 % Patr icia Tao " height E&M 67 [in_i] Frieda Jaramil lo " height in centimeters E&M 170.18 cm Farooq ia Tao " weight E&M 153 lbs. Frieda Jaramil lo " weight in kilograms E&M 69.55 kg Frieda Tao method used to obtain blood pressure manual Neli Haganardo " Blood Pressure Position 01 sitting Neli Flores " blood pressure, site #1 right arm Nelidebo Sheppard llchicoo " blood pressure, diastolic 68 mm[Hg] Neli Wongo " blood pressure, systolic 104 mm[Hg] Neli G michaelao " temperature site oral Neli Wongo " oxygen saturation, oximetry 97 % Tarnuellyn Flores " pulse rate 73 /min Neli Wongo " temperature E&M 98.1 [degF] Neli Wongo " height E&M 67 [in_i] Neli Wongo " height in centimeters E&M 170.18 cm Nelidebo Flores " weight E&M 149 lbs. Neli Wongo " weight in kilograms E&M 67.73 kg Nelidebo trivedio Allergies No Known Allergy Information REASON FOR REFERRAL No Information Available RESULTS Date Observation Value Provider Reference Interpretation Loc ation Range vitamin D 22.4 ng/mL [facility] 30.0-100.0 Low 0/14 25-hydroxy, serum " hemoglobin A1C, 5.3 % [facility] 4.8-5.6 blood, as % of total hemoglobin " folate, serum 6.0 ng/mL [facility] >3.0 " B-12, serum 843 pg/mL [facility] 232-1245 " LDL cholesterol, 148 mg/dL [facility] 0-99 High serum " very low density 22 mg/dL [facility] 5-40 lipoproteins " HDL cholesterol, 39 mg/dL [facility] >39 Low serum " triglyceride, 119 mg/dL [facility] 0-149 serum, fasting " cholesterol, serum 209 mg/dL [facility] 100-199 High " alanine 17 1/L [facility] 0-44 aminotransferase (SGPT), serum " aspartate 17 1/L [facility] 0-40 aminotransferase (SGOT), serum " alkaline 63 1/L [facility] 39-117 phosphatase, serum " bilirubin, serum, 0.6 mg/dL [facility] 0.0-1.2 total " albumin/globulin 1.7 [facility] 1.2-2.2 ratio, serum " globulin, serum 2.7 [facility] 1.5-4.5 " albumin, serum 4.7 g/dL [facility] 4.0-5.0 " protein, total, 7.4 g/dL [facility] 6.0-8.5 serum " calcium, serum 9.3 mg/dL [facility] 8.7-10.2 " carbon dioxide, 22 mmol/L [facility] 20-29 venous blood " chloride, serum 100 mmol/L [facility] 96-106 " potassium, serum 3.8 mmol/L [facility] 3.5-5.2 " sodium, serum 140 mmol/L [facility] 134-144 " urea 12 [facility] 9-20 nitrogen/creatinin e ratio, serum " eGFR if 103 [facility] >59 Zimbabwean mL/min/((173 /100).m2) " Estimated 89 [facility] >59 Glomerular mL/min/((173 Filtration Rate /100).m2) (calc) " creatinine, serum 1.04 mg/dL [facility] 0.76-1.27 " urea nitrogen, 12 mg/dL [facility] 6-24 blood " blood glucose, 101 mg/dL [facility] 65-99 High random " immature 0 % [facility] Not Estab. granulocytes, percentage of total cells, blood " basophil count, 0.0 x10E3/uL [facility] 0.0-0.2 absolute " Eosinophil 0.2 X10E3/UL [facility] 0.0-0.4 Absolute Count " monocyte count, 0.5 X10E3/UL [facility] 0.1-0.9 blood, automated " lymphocyte count, 2.5 X10E3/UL [facility] 0.7-3.1 blood, automated " Absolute 3.9 X10E3/UL [facility] 1.4-7.0 Neutrophils " basophils as 0 % [facility] Not Estab. percent of blood leukocytes " eosinophils as 2 % [facility] Not Estab. percent of blood leukocytes " monocytes as 7 % [facility] Not Estab. percent of blood leukocytes " lymphocytes as 35 % [facility] Not Estab. percent of blood leukocytes " neutrophils as 56 % [facility] Not Estab. percent of blood leukocytes " platelet count 246 X10E3/UL [facility] 150-450 " red blood cell 12.8 % [facility] 11.6-15.4 distribution width " mean corpuscular 32.4 G/DL [facility] 31.5-35.7 hemoglobin concentration, RBC " mean corpuscular 28.8 pg [facility] 26.6-33.0 hemoglobin, RBC " mean corpuscular 89 fL [facility] 79-97 volume, RBC " hematocrit, blood 42.9 % [facility] 37.5-51.0 " hemoglobin, blood 13.9 g/dL [facility] 13.0-17.7 " erythrocyte (RBC) 4.82 [facility] 4.14-5.80 count X10E6/UL " leukocyte count, 7.1 X10E3/UL [facility] 3.4-10.8 blood " thyroxine, serum, 1.20 ng/dL [facility] 0.82-1.77 free " thyroid 0.768 [facility] 0.450-4.500 stimulating u[iU]/mL hormone, serum 2020/0 Neisseria Negative [facility] Negative / gonorrhoeae DNA probe " chlamydia DNA Negative [facility] Negative probe 2020/0 hepatitis A Positive [facility] Negative Abnormal 11/29 antibody, total " HIV-CMIA Non Reactive [facility] Non (Chemiluminescent Reactive Microparticle Immuno Assay) " rapid plasma Non Reactive [facility] Non reagin antibody, Reactive serum " alanine 15 1/L [facility] 0-44 aminotransferase (SGPT), serum " aspartate 14 1/L [facility] 0-40 aminotransferase (SGOT), serum " alkaline 56 1/L [facility] 39-117 phosphatase, serum " bilirubin, serum, 0.5 mg/dL [facility] 0.0-1.2 total " albumin/globulin 1.9 [facility] 1.2-2.2 ratio, serum " globulin, serum 2.5 [facility] 1.5-4.5 " albumin, serum 4.7 g/dL [facility] 4.0-5.0 " protein, total, 7.2 g/dL [facility] 6.0-8.5 serum " calcium, serum 9.7 mg/dL [facility] 8.7-10.2 " carbon dioxide, 21 mmol/L [facility] 20-29 venous blood " chloride, serum 101 mmol/L [facility] 96-106 " potassium, serum 4.6 mmol/L [facility] 3.5-5.2 " sodium, serum 140 mmol/L [facility] 134-144 " urea 11 [facility] 9-20 nitrogen/creatinin e ratio, serum " eGFR if 114 [facility] >59 [place] mL/min/((173 /100).m2) " Estimated 98 [facility] >59 Glomerular mL/min/((173 Filtration Rate /100).m2) (calc) " creatinine, serum 0.96 mg/dL [facility] 0.76-1.27 " urea nitrogen, 11 mg/dL LinkLogic 6-24 blood " blood glucose, 85 mg/dL LinkLogic 65-99 random " immature 0 % LinkLogic Not Estab. granulocytes, percentage of total cells, blood " basophil count, 0.0 x10E3/uL LinkLogic 0.0-0.2 absolute " Eosinophil 0.0 X10E3/UL LinkLogic 0.0-0.4 Absolute Count " monocyte count, 0.5 X10E3/UL LinkLogic 0.1-0.9 blood, automated " lymphocyte count, 1.8 X10E3/UL LinkLogic 0.7-3.1 blood, automated " Absolute 3.3 X10E3/UL LinkLogic 1.4-7.0 Neutrophils " basophils as 1 % LinkLogic Not Estab. percent of blood leukocytes " eosinophils as 1 % LinkLogic Not Estab. percent of blood leukocytes " monocytes as 9 % LinkLogic Not Estab. percent of blood leukocytes " lymphocytes as 31 % LinkLogic Not Estab. percent of blood leukocytes " neutrophils as 58 % LinkLogic Not Estab. percent of blood leukocytes " platelet count 259 X10E3/UL LinkLogic 150-450 " red blood cell 13.5 % LinkLogic 11.6-15.4 distribution width " mean corpuscular 31.5 G/DL LinkLogic 31.5-35.7 hemoglobin concentration, RBC " mean corpuscular 27.8 pg LinkLogic 26.6-33.0 hemoglobin, RBC " mean corpuscular 88 fL LinkLogic 79-97 volume, RBC " hematocrit, blood 46.3 % LinkLogic 37.5-51.0 " hemoglobin, blood 14.6 g/dL LinkLogic 13.0-17.7 " erythrocyte (RBC) 5.26 LinkLogic 4.14-5.80 count X10E6/UL " leukocyte count, 5.7 X10E3/UL LinkLogic 3.4-10.8 blood " hepatitis C <0.1 LinkLogic 0.0-0.9 antibody, serum " hepatitis B Non Reactive LinkLogic surface antibody " hepatitis B core Negative LinkLogic Negative antibody, total " hepatitis B Negative LinkLogic Negative surface antigen HIV rapid test negative Jeremiah 11/29 results Cara Neisseria Negative LinkLogic Negative 07/19 gonorrhoeae DNA probe " chlamydia DNA Negative LinkLogic Negative probe HIV-CMIA Non Reactive LinkLogic Non 07/19 (Chemiluminescent Reactive Microparticle Immuno Assay) " rapid plasma Non Reactive LinkLogic Non reagin antibody, Reactive serum " alanine 16 1/L LinkLogic 0-44 aminotransferase (SGPT), serum " aspartate 19 1/L LinkLogic 0-40 aminotransferase (SGOT), serum " alkaline 72 1/L LinkLogic 39-117 phosphatase, serum " bilirubin, serum, 0.6 mg/dL LinkLogic 0.0-1.2 total " albumin/globulin 1.8 LinkLogic 1.2-2.2 ratio, serum " globulin, serum 2.8 LinkLogic 1.5-4.5 " albumin, serum 4.9 g/dL LinkLogic 3.5-5.5 " protein, total, 7.7 g/dL LinkLogic 6.0-8.5 serum " calcium, serum 9.7 mg/dL LinkLogic 8.7-10.2 " carbon dioxide, 23 mmol/L LinkLogic 20-29 venous blood " chloride, serum 102 mmol/L LinkLogic 96-106 " potassium, serum 4.4 mmol/L LinkLogic 3.5-5.2 " sodium, serum 141 mmol/L LinkLogic 134-144 " urea 13 LinkLogic 9-20 nitrogen/creatinin e ratio, serum " eGFR if 111 LinkLogic >59 Zimbabwean mL/min/((173 /100).m2) " Estimated 96 LinkLogic >59 Glomerular mL/min/((173 Filtration Rate /100).m2) (calc) " creatinine, serum 0.98 mg/dL LinkLogic 0.76-1.27 " urea nitrogen, 13 mg/dL LinkLogic 6-24 blood " blood glucose, 85 mg/dL LinkLogic 65-99 random Neisseria Negative LinkLogic Negative 12/06 gonorrhoeae DNA probe " chlamydia DNA Negative LinkLogic Negative probe HIV-CMIA Non Reactive LinkLogic Non 12/06 (Chemiluminescent Reactive Microparticle Immuno Assay) " rapid plasma Non Reactive LinkLogic Non reagin antibody, Reactive serum " alanine 16 1/L LinkLogic 0-44 aminotransferase (SGPT), serum " aspartate 20 1/L LinkLogic 0-40 aminotransferase (SGOT), serum " alkaline 71 1/L LinkLogic 39-117 phosphatase, serum " bilirubin, serum, 0.4 mg/dL LinkLogic 0.0-1.2 total " albumin/globulin 1.7 LinkLogic 1.2-2.2 ratio, serum " globulin, serum 2.6 LinkLogic 1.5-4.5 " albumin, serum 4.5 g/dL LinkLogic 3.5-5.5 " protein, total, 7.1 g/dL LinkLogic 6.0-8.5 serum " calcium, serum 9.1 mg/dL LinkLogic 8.7-10.2 " carbon dioxide, 22 mmol/L LinkLogic 20-29 venous blood " chloride, serum 103 mmol/L LinkLogic 96-106 " potassium, serum 4.4 mmol/L LinkLogic 3.5-5.2 " sodium, serum 140 mmol/L LinkLogic 134-144 " urea 10 LinkLogic 9-20 nitrogen/creatinin e ratio, serum " eGFR if 99 LinkLogic >59 [place] mL/min/((173 /100).m2) " Estimated 86 LinkLogic >59 Glomerular mL/min/((173 Filtration Rate /100).m2) (calc) " creatinine, serum 1.08 mg/dL LinkLogic 0.76-1.27 " urea nitrogen, 11 mg/dL LinkLogic 6-20 blood " blood glucose, 81 mg/dL LinkLogic 65-99 random rapid plasma NON-REACTIVE LinkLogic NON-REACTIV Normal [facility] 09/14 reagin antibody, E Evelin gnostic serum [facility] [address] [place] [phone] [place] " HIV-CMIA NON-REACTIVE LinkLogic NON-REACTIV Normal [facility] (Chemiluminescent E Di agnostic Microparticle s-[place] Immuno Assay) Lab [address] [facility] [phone] [place] " alanine 12 1/L LinkLogic 9-46 Normal [facility] aminotransferase Evelin gnostic (SGPT), serum s-[facility] ton Lab [address] [facility] [phone] Humera P Abdiel " aspartate 14 1/L LinkLogic 10-40 Normal [facility] aminotransferase Evelin gnostic (SGOT), serum s-[facility] ton Lab [address] [place] [phone] [place] " alkaline 56 1/L LinkLogic 40-115 Normal [facility] phosphatase, serum D iagnostic [facility] [address] [place] [phone] [place] " bilirubin, serum, 0.3 mg/dL LinkLogic 0.2-1.2 Normal [facility] total Diagnostic [facility] [address] [place] [phone] [place] " albumin/globulin 1.5 (calc) LinkLogic 1.0-2.5 Normal [facility] ratio, serum Diagnos [facility] [address] [place] [phone] [place] " globulins, serum, 2.7 G/DL LinkLogic 1.9-3.7 Normal [facility] total (CALC) Diagnostic [facility] [address] [place] [phone] [place] " albumin, serum 4.0 g/dL LinkLogic 3.6-5.1 Normal [facility] Diagnostic [facility] [address] [place] [phone] [place] " protein, total, 6.7 g/dL LinkLogic 6.1-8.1 Normal [facility] serum Diagnostic [facility] [address] [place] [phone] [place] " calcium, serum 8.9 mg/dL LinkLogic 8.6-10.3 Normal [facility] Diagnostic [facility] [address] [place] [phone] [place] " carbon dioxide, 26 mmol/L LinkLogic 20-32 Normal [facility] venous blood Diagnos tic [facility] [address] [place] [phone] [place] " chloride, serum 107 mmol/L LinkLogic 98-110 Normal [facility] Diagnostic [facility] [address] [place] [phone] [place] " potassium, serum 4.1 mmol/L LinkLogic 3.5-5.3 Normal [facility] Diagnostic [facility] [address] [place] [phone] [place] " sodium, serum 142 mmol/L LinkLogic 135-146 Normal [facility] Diagnostic [facility] [address] [place] [phone] [place] " urea NOT LinkLogic 6-22 [facility] nitrogen/creatinin APPLICABLE Diagnostic e ratio, serum (calc) [facility] [address] [place] [phone] [place] " eGFR if 97 LinkLogic > OR = 60 Normal [facility] [place] mL/min/((173 Diagnos tic /100).m2) [facility] [address] [place] [phone] [place] " Estimated 84 LinkLogic > OR = 60 Normal [facility] Glomerular mL/min/((173 Diagno stic Filtration Rate /100).m2) [facility] (calc) Lab [address] [place] [phone] [place] " creatinine, serum 1.10 mg/dL LinkLogic 0.60-1.35 Normal [facility] Diagnostic [facility] [address] [place] [phone] [place] " urea nitrogen, 16 mg/dL LinkLogic 7-25 Normal [facility] blood Diagnostic [facility] [address] [place] [phone] [place] " blood glucose, 102 mg/dL LinkLogic 65-99 High [facility] random Diagnostic [facility] [address] [place] [phone] [place] Neisseria Negative LinkLogic Negative 08/08 gonorrhoeae, throat culture HIV-CMIA NON-REACTIVE LinkLogic NON-REACTIV Normal 07/31 (Chemiluminescent E Microparticle Immuno Assay) " alanine 13 1/L LinkLogic 9-46 Normal aminotransferase (SGPT), serum " aspartate 14 1/L LinkLogic 10-40 Normal aminotransferase (SGOT), serum " alkaline 64 1/L LinkLogic 40-115 Normal phosphatase, serum " bilirubin, serum, 0.4 mg/dL LinkLogic 0.2-1.2 Normal total " albumin/globulin 1.5 (calc) LinkLogic 1.0-2.5 Normal ratio, serum " globulins, serum, 3.0 G/DL LinkLogic 1.9-3.7 Normal total (CALC) " albumin, serum 4.5 g/dL LinkLogic 3.6-5.1 Normal " protein, total, 7.5 g/dL LinkLogic 6.1-8.1 Normal serum " calcium, serum 9.3 mg/dL LinkLogic 8.6-10.3 Normal " carbon dioxide, 28 mmol/L LinkLogic 20-32 Normal venous blood " chloride, serum 104 mmol/L LinkLogic 98-110 Normal " potassium, serum 4.1 mmol/L LinkLogic 3.5-5.3 Normal " sodium, serum 139 mmol/L LinkLogic 135-146 Normal " urea NOT LinkLogic 6-22 nitrogen/creatinin APPLICABLE e ratio, serum (calc) " eGFR if 130 LinkLogic > OR = 60 Normal [place] mL/min/((173 /100).m2) " Estimated 112 LinkLogic > OR = 60 Normal Glomerular mL/min/((173 Filtration Rate /100).m2) (calc) " creatinine, serum 0.81 mg/dL LinkLogic 0.60-1.35 Normal " urea nitrogen, 13 mg/dL LinkLogic 7-25 Normal blood " blood glucose, 101 mg/dL LinkLogic 65-99 High random HIV-CMIA NON-REACTIVE LinkLogic NON-REACTIV Normal [facility] 02/01 (Chemiluminescent E Di agnostic Microparticle s-[facility] ton Immuno Assay) Lab [address] [facility] [phone] [place] rapid plasma NON-REACTIVE LinkLogic NON-REACTIV Normal [facility] 10/21 reagin antibody, E Evelin gnostic serum [facility] [address] [facility] [phone] [place] " HIV-CMIA NON-REACTIVE LinkLogic NON-REACTIV Normal [facility] (Chemiluminescent E Di agnostic Microparticle s-[place] Immuno Assay) Lab [address] [place] [phone] [place] " alanine 16 1/L LinkLogic 9-46 Normal [facility] aminotransferase Evelin gnostic (SGPT), serum [facility]-[place] [facility] [address] [place] [phone] [place] " aspartate 15 1/L LinkLogic 10-40 Normal [facility] aminotransferase Evelin gnostic (SGOT), serum [facility] [place] [facility] [address] [place] [phone] [place] " alkaline 67 1/L LinkLogic 40-115 Normal [facility] phosphatase, serum D iagnostic [facility] [address] [place] [phone] [place] " bilirubin, serum, 0.4 mg/dL LinkLogic 0.2-1.2 Normal [facility] total Diagnostic [facility] [address] [place] [phone] [place] " albumin/globulin 1.5 (calc) LinkLogic 1.0-2.5 Normal [facility] ratio, serum Diagnos tic [facility] [address] [place] [phone] [place] " globulins, serum, 3.0 G/DL LinkLogic 1.9-3.7 Normal [facility] total (CALC) Diagnostic [facility] [address] [place] [phone] [place] " albumin, serum 4.4 g/dL LinkLogic 3.6-5.1 Normal [facility] Diagnostic [facility] [address] [place] [phone] [place] " protein, total, 7.4 g/dL LinkLogic 6.1-8.1 Normal [facility] serum Diagnostic [facility] [address] [place] [phone] [place] " calcium, serum 9.6 mg/dL LinkLogic 8.6-10.3 Normal [facility] Diagnostic [facility] [address] [place] [phone] [place] " carbon dioxide, 26 mmol/L LinkLogic 20-31 Normal [facility] venous blood Diagnos tic [facility] [address] [place] [phone] [place] " chloride, serum 109 mmol/L LinkLogic 98-110 Normal [facility] Diagnostic [facility] [address] [place] [phone] [place] " potassium, serum 4.8 mmol/L LinkLogic 3.5-5.3 Normal [facility] Diagnostic [facility] [address] [place] [phone] [place] " sodium, serum 143 mmol/L LinkLogic 135-146 Normal [facility] Diagnostic [facility] [address] [place] [phone] [place] " urea NOT LinkLogic 6-22 [facility] nitrogen/creatinin APPLICABLE Diagnostic e ratio, serum (calc) [facility] [address] [place] [phone] [place] " eGFR if 119 LinkLogic > OR = 60 Normal [facility] [place] mL/min/((173 Diagnos tic /100).m2) [facility] [address] [place] [phone] [place] " Estimated 102 LinkLogic > OR = 60 Normal [facility] Glomerular mL/min/((173 Diagno stic Filtration Rate /100).m2) [facility] (calc) Lab [address] [place] [phone] [place] " creatinine, serum 0.94 mg/dL LinkLogic 0.60-1.35 Normal [facility] Diagnostic [facility] [address] [place] [phone] [place] " urea nitrogen, 14 mg/dL LinkLogic 7-25 Normal [facility] blood Diagnostic [facility] [address] [place] [phone] [place] " blood glucose, 64 mg/dL LinkLogic 65-99 Low [facility] random Diagnostic [facility] [address] [place] [phone] [place] rapid plasma NON-REACTIVE LinkLogic NON-REACTIV Normal [facility] 07/21 reagin antibody, E Evelin gnostic serum -[place] [facility] [address] [place] [phone] [place] MD " HIV-CMIA NON-REACTIVE LinkLogic NON-REACTIV Normal [facility] (Chemiluminescent E Di agnostic Microparticle s-[facility] ton Immuno Assay) Lab [address] [place] [phone] [place]era [place] MD " alanine 12 1/L LinkLogic 9-46 Normal [facility] aminotransferase Evelin gnostic (SGPT), serum s-[facility] ton Lab [address] [place] [phone] Hmuera [place]ows MD " aspartate 15 1/L LinkLogic 10-40 Normal [facility] aminotransferase Evelin gnostic (SGOT), serum s-[facility] ton Lab [address] [place] [phone] [place]era [place] MD " alkaline 60 1/L LinkLogic 40-115 Normal [facility] phosphatase, serum D iagnostic [facility] [address] [place] [phone] [place]era [place] MD " bilirubin, serum, 0.4 mg/dL LinkLogic 0.2-1.2 Normal [facility] total Diagnostic [facility] [address] [place] [phone] Humera [place] MD " albumin/globulin 1.4 (calc) LinkLogic 1.0-2.5 Normal [facility] ratio, serum Diagnos tic [facility] [address] [place] [phone] Humera [place] MD " globulins, serum, 3.2 G/DL LinkLogic 1.9-3.7 Normal [facility] total (CALC) Diagnostic [facility] [address] [place] [phone] Humera [place] MD " albumin, serum 4.6 g/dL LinkLogic 3.6-5.1 Normal [facility] Diagnostic [facility] [address] [place] [phone] Humera [place] MD " protein, total, 7.8 g/dL LinkLogic 6.1-8.1 Normal [facility] serum Diagnostic [facility] [address] [place] [phone] Humera [place] MD " calcium, serum 10.1 mg/dL LinkLogic 8.6-10.3 Normal [facility] Diagnostic [facility] [address] [place] [phone] Humera [place]ows MD " carbon dioxide, 28 mmol/L LinkLogic 20-31 Normal [facility] venous blood Diagnos tic [facility] [address] [place] [phone] Humera [place] MD " chloride, serum 105 mmol/L LinkLogic 98-110 Normal RG [facility] Diagnostic [facility] [address] [place] [phone] Humera [place] MD " potassium, serum 4.3 mmol/L LinkLogic 3.5-5.3 Normal [facility] Diagnostic [facility] [address] [place] [phone] Humera [place] MD " sodium, serum 142 mmol/L LinkLogic 135-146 Normal [facility] Diagnostic [facility] [address] [place] [phone] Humera [place] MD " urea NOT LinkLogic 6-22 [facility] nitrogen/creatinin APPLICABLE Diagnostic e ratio, serum (calc) [facility] [address] [place] [phone] Humera [place] MD " eGFR if 94 LinkLogic > OR = 60 Normal [facility] [place] mL/min/((173 Diagnos tic /100).m2) [facility] [address] [place] [phone] Humera [place] MD " Estimated 81 LinkLogic > OR = 60 Normal [facility] Glomerular mL/min/((173 Diagno stic Filtration Rate /100).m2) [facility] (calc) Lab [address] [place] [phone] Humera [place] MD " creatinine, serum 1.14 mg/dL LinkLogic 0.60-1.35 Normal [facility] Diagnostic [facility] [address] [place] [phone] Humera [place]ows MD " urea nitrogen, 14 mg/dL LinkLogic 7-25 Normal [facility] blood Diagnostic [facility] [address] [place] [phone] Humera [place] MD " blood glucose, 67 mg/dL LinkLogic 65-99 Normal [facility] random Diagnostic [facility] [address] [place] [phone] [place]era [place] MD rapid plasma NON-REACTIVE LinkLogic NON-REACTIV Normal [facility] 06/28 reagin antibody, E Evelin gnostic serum [facility] [address] [place] [phone] Humera [place] MD " alanine 17 1/L LinkLogic 9-46 Normal [facility] aminotransferase Evelin gnostic (SGPT), serum [facility] ton Lab [address] [place] [phone] Humera Meadows MD " aspartate 16 1/L LinkLogic 10-40 Normal [facility] aminotransferase Evelin gnostic (SGOT), serum [facility] ton Lab [address] [place] [phone] Humera [place] MD " alkaline 74 1/L LinkLogic 40-115 Normal [facility] phosphatase, serum D iagnostic [facility] [address] [place] [phone] Humera [place] MD " bilirubin, serum, 0.5 mg/dL LinkLogic 0.2-1.2 Normal [facility] total Diagnostic [facility] [address] [place] [phone] Humera [place] MD " albumin/globulin 1.2 (calc) LinkLogic 1.0-2.5 Normal [facility] ratio, serum Diagnos tic [facility] [address] [place] [phone] Humera [place] MD " globulins, serum, 3.7 G/DL LinkLogic 1.9-3.7 Normal [facility] total (CALC) Diagnostic [facility] [address] [place] [phone] Humera [place] MD " albumin, serum 4.6 g/dL LinkLogic 3.6-5.1 Normal [facility] Diagnostic [facility] [address] [place] [phone] Humera [place] MD " protein, total, 8.3 g/dL LinkLogic 6.1-8.1 High [facility] serum Diagnostic [facility] [address] [place] [phone] Humera [place] MD " calcium, serum 9.2 mg/dL LinkLogic 8.6-10.3 Normal [facility] Diagnostic [facility] [address] [place] [phone] Humera [place] MD " carbon dioxide, 30 mmol/L LinkLogic 20-31 Normal [facility] venous blood Diagnos tic [facility] [address] [place] [phone] Humera [place] MD " chloride, serum 105 mmol/L LinkLogic 98-110 Normal RG [facility] Diagnostic [facility] [address] [place] [phone] Humera [place] MD " potassium, serum 4.4 mmol/L LinkLogic 3.5-5.3 Normal [facility] Diagnostic [facility] [address] [place] [phone] Humera [place] MD " sodium, serum 140 mmol/L LinkLogic 135-146 Normal [facility] Diagnostic [facility] [address] [place] [phone] Humera [place] MD " urea NOT LinkLogic 6-22 [facility] nitrogen/creatinin APPLICABLE Diagnostic e ratio, serum (calc) [facility] [address] [place] [phone] Humera Meadows MD " eGFR if 133 LinkLogic > OR = 60 Normal [facility] [place] mL/min/((173 Diagnos tic /100).m2) [facility] [address] [place] [phone] Humera [place] MD " Estimated 115 LinkLogic > OR = 60 Normal [facility] Glomerular mL/min/((173 Diagno stic Filtration Rate /100).m2) [facility] (calc) Lab [address] [place] [phone] Humera [place] MD " creatinine, serum 0.77 mg/dL LinkLogic 0.60-1.35 Normal [facility] Diagnostic [facility] [address] [place] [phone] Humera [place] MD " urea nitrogen, 16 mg/dL LinkLogic 7-25 Normal [facility] blood Diagnostic [facility] [address] [place] [phone] Humera [place] MD " blood glucose, 85 mg/dL LinkLogic 65-99 Normal [facility] random Diagnostic [facility] [address] [place] [phone] Humera [place]ows MD " HIV-CMIA NON-REACTIVE LinkLogic NON-REACTIV Normal [facility] (Chemiluminescent E Di agnostic Microparticle s-[facility] ton Immuno Assay) Lab [address] [place] [phone] Humera [place] MD 2017 alanine 13 1/L LinkLogic 9-46 Normal [facility] 807 aminotransferase Evelin gnostic (SGPT), serum s-[facility] ton Lab [address] [place] [phone] Humera [place] MD " aspartate 17 1/L LinkLogic 10-40 Normal [facility] aminotransferase Evelin gnostic (SGOT), serum s-[facility] ton Lab [address] [place] [phone] [place]era [place] MD " alkaline 70 1/L LinkLogic 40-115 Normal [facility] phosphatase, serum D iagnostic [facility] [address] [place] [phone] [place]era [place] MD " bilirubin, serum, 0.6 mg/dL LinkLogic 0.2-1.2 Normal [facility] total Diagnostic [facility] [address] [place] [phone] Humera [place] MD " albumin/globulin 1.3 (calc) LinkLogic 1.0-2.5 Normal [facility] ratio, serum Diagnos tic [facility] [address] [place] [phone] Humera [place] MD " globulins, serum, 3.5 G/DL LinkLogic 1.9-3.7 Normal [facility] total (CALC) Diagnostic [facility] [address] [place] [phone] Humera [place] MD " albumin, serum 4.5 g/dL LinkLogic 3.6-5.1 Normal [facility] Diagnostic [facility] [address] [place] [phone] Humera [place] MD " protein, total, 8.0 g/dL LinkLogic 6.1-8.1 Normal [facility] serum Diagnostic [facility] [address] [place] [phone] Humera Meadows MD " calcium, serum 9.8 mg/dL LinkLogic 8.6-10.3 Normal [facility] Diagnostic [facility] [address] [place] [phone] Humera Meadows MD " carbon dioxide, 29 mmol/L LinkLogic 20-31 Normal [facility] venous blood Diagnos tic [facility] [address] [place] [phone] Humera Meadows MD " chloride, serum 104 mmol/L LinkLogic 98-110 Normal RG A [facility] Diagnostic [facility] [address] [place] [phone] Humera Meadows MD " potassium, serum 4.6 mmol/L LinkLogic 3.5-5.3 Normal [facility] Diagnostic [facility] [address] [place] [phone] Humera Meadows MD " sodium, serum 140 mmol/L LinkLogic 135-146 Normal [facility] Diagnostic [facility] [address] [place] [phone] Humera Meadows MD " urea NOT LinkLogic 6-22 [facility] nitrogen/creatinin APPLICABLE Diagnostic e ratio, serum (calc) [facility] [address] [place] [phone] Humera Meadows MD " eGFR if 113 LinkLogic > OR = 60 Normal [facility] Zimbabwean mL/min/((173 Diagnos tic /100).m2) [facility] [address] [place] [phone] Humera Meadows MD " Estimated 97 LinkLogic > OR = 60 Normal [facility] Glomerular mL/min/((173 Diagno stic Filtration Rate /100).m2) [facility] (calc) Lab [address] [place] [phone] Humera Meadows MD " creatinine, serum 0.98 mg/dL LinkLogic 0.60-1.35 Normal [facility] [address] [place] [phone] Humera Meadows MD " urea nitrogen, 15 mg/dL LinkLogic 7-25 Normal [facility] blood Diagnostic [facility] [address] [place] [phone] Humera Meadows MD " blood glucose, 89 mg/dL LinkLogic 65-99 Normal [facility] random Diagnostic [facility] [address] [facility] [phone] Humera Meadows MD " HIV-CMIA NON-REACTIVE LinkLogic NON-REACTIV Normal [facility] (Chemiluminescent E Di agnostic Microparticle s-[facility] Immuno Assay) Lab [address] [facility] [phone] Humera Meadows MD rapid plasma Non Reactive LinkLogic Non 12/10 reagin antibody, Reactive serum HIV rapid test negative Eugenie Angeles 02/10 results hepatitis C <0.1 LinkLogic 0.0-0.9 01/28 antibody, serum " HIV-CMIA Non Reactive LinkLogic Non (Chemiluminescent Reactive Microparticle Immuno Assay) " rapid plasma Non Reactive LinkLogic Non reagin antibody, Reactive serum " HIV-1RNA, serum, <20 LinkLogic by PCR, copies/mL quantitative " LDL cholesterol, 131 mg/dL LinkLogic 0-99 High serum " very low density 27 mg/dL LinkLogic 5-40 lipoproteins " HDL cholesterol, 46 mg/dL LinkLogic >39 serum " triglyceride, 136 mg/dL LinkLogic 0-149 serum, fasting " cholesterol, serum 204 mg/dL LinkLogic 100-199 High " alanine 16 1/L LinkLogic 0-44 aminotransferase (SGPT), serum " aspartate 15 1/L LinkLogic 0-40 aminotransferase (SGOT), serum " alkaline 74 1/L LinkLogic 39-117 phosphatase, serum " bilirubin, serum, <0.2 mg/dL LinkLogic 0.0-1.2 total " albumin/globulin 1.5 LinkLogic 1.1-2.5 ratio, serum " globulin, serum 3.2 LinkLogic 1.5-4.5 " albumin, serum 4.8 g/dL LinkLogic 3.5-5.5 " protein, total, 8.0 g/dL LinkLogic 6.0-8.5 serum " calcium, serum 9.9 mg/dL LinkLogic 8.7-10.2 " carbon dioxide, 22 mmol/L LinkLogic 18-29 venous blood " chloride, serum 102 mmol/L LinkLogic 97-108 " potassium, serum 4.1 mmol/L LinkLogic 3.5-5.2 " sodium, serum 145 mmol/L LinkLogic 134-144 High " urea 13 LinkLogic 8-19 nitrogen/creatinin e ratio, serum " eGFR if 104 LinkLogic >59 Zimbabwean mL/min/((173 /100).m2) " Estimated 90 LinkLogic >59 Glomerular mL/min/((173 Filtration Rate /100).m2) (calc) " creatinine, serum 1.05 mg/dL LinkLogic 0.76-1.27 " urea nitrogen, 14 mg/dL LinkLogic 6-20 blood " blood glucose, 90 mg/dL LinkLogic 65-99 random " immature 0 % LinkLogic granulocytes, percentage of total cells, blood " basophil count, 0.0 x10E3/uL LinkLogic 0.0-0.2 absolute " Eosinophil 0.1 X10E3/UL LinkLogic 0.0-0.4 Absolute Count " monocyte count, 0.6 X10E3/UL LinkLogic 0.1-0.9 blood, automated " lymphocyte count, 2.7 X10E3/UL LinkLogic 0.7-3.1 blood, automated " Absolute 4.3 X10E3/UL LinkLogic 1.4-7.0 Neutrophils " basophils as 0 % LinkLogic percent of blood leukocytes " eosinophils as 1 % LinkLogic percent of blood leukocytes " monocytes as 7 % LinkLogic percent of blood leukocytes " lymphocytes as 35 % LinkLogic percent of blood leukocytes " neutrophils as 57 % LinkLogic percent of blood leukocytes " platelet count 286 X10E3/UL LinkLogic 150-379 " red blood cell 14.6 % LinkLogic 12.3-15.4 distribution width " mean corpuscular 31.5 G/DL LinkLogic 31.5-35.7 hemoglobin concentration, RBC " mean corpuscular 27.4 pg LinkLogic 26.6-33.0 hemoglobin, RBC " mean corpuscular 87 fL LinkLogic 79-97 volume, RBC " hematocrit, blood 42.8 % LinkLogic 37.5-51.0 " hemoglobin, blood 13.5 g/dL LinkLogic 12.6-17.7 " erythrocyte (RBC) 4.93 LinkLogic 4.14-5.80 count X10E6/UL " leukocyte count, 7.7 X10E3/UL LinkLogic 3.4-10.8 blood Neisseria Negative LinkLogic Negative 01/28 gonorrhoeae DNA probe " chlamydia DNA Negative LinkLogic Negative probe HIV rapid test negative Eugenie Angeles 08/20 results hepatitis A Positive LinkLogic Negative Abnormal antibody, total " hepatitis B core Negative LinkLogic Negative antibody, total " hepatitis B Negative LinkLogic Negative surface antigen " HIV-CMIA Non Reactive LinkLogic Non (Chemiluminescent Reactive Microparticle Immuno Assay) " Treponema pallidum Positive LinkLogic Negative Abnormal antibodies, by particle agglutination " rapid plasma 1:32 LinkLogic NonRea<1:1 High reagin antibody, serum " hepatitis B Reactive LinkLogic surface antibody " alanine 18 1/L LinkLogic 0-44 aminotransferase (SGPT), serum " aspartate 16 1/L LinkLogic 0-40 aminotransferase (SGOT), serum " alkaline 70 1/L LinkLogic 39-117 phosphatase, serum " bilirubin, serum, <0.2 mg/dL LinkLogic 0.0-1.2 total " albumin/globulin 1.6 LinkLogic 1.1-2.5 ratio, serum " globulin, serum 2.9 LinkLogic 1.5-4.5 " albumin, serum 4.5 g/dL LinkLogic 3.5-5.5 " protein, total, 7.4 g/dL LinkLogic 6.0-8.5 serum " calcium, serum 9.5 mg/dL LinkLogic 8.7-10.2 " carbon dioxide, 24 mmol/L LinkLogic - venous blood " chloride, serum 104 mmol/L LinkLogic 97-108 " potassium, serum 4.4 mmol/L LinkLogic 3.5-5.2 " sodium, serum 142 mmol/L LinkLogic 134-144 " urea 16 LinkLogic 8-19 nitrogen/creatinin e ratio, serum " eGFR if 128 LinkLogic >59 Zimbabwean mL/min/((173 /100).m2) " Estimated 111 LinkLogic >59 Glomerular mL/min/((173 Filtration Rate /100).m2) (calc) " creatinine, serum 0.87 mg/dL LinkLogic 0.76-1.27 " urea nitrogen, 14 mg/dL LinkLogic 6-20 blood " blood glucose, 86 mg/dL LinkLogic 65-99 random " immature 0 % LinkLogic granulocytes, percentage of total cells, blood " basophil count, 0.0 x10E3/uL LinkLogic 0.0-0.2 absolute " Eosinophil 0.1 X10E3/UL LinkLogic 0.0-0.4 Absolute Count " monocyte count, 0.7 X10E3/UL LinkLogic 0.1-0.9 blood, automated " lymphocyte count, 2.2 X10E3/UL LinkLogic 0.7-3.1 blood, automated " Absolute 4.1 X10E3/UL LinkLogic 1.4-7.0 Neutrophils " basophils as 0 % LinkLogic percent of blood leukocytes " eosinophils as 2 % LinkLogic percent of blood leukocytes " monocytes as 10 % LinkLogic percent of blood leukocytes " lymphocytes as 31 % LinkLogic percent of blood leukocytes " neutrophils as 57 % LinkLogic percent of blood leukocytes " platelet count 274 X10E3/UL LinkLogic 150-379 " red blood cell 14.5 % LinkLogic 12.3-15.4 distribution width " mean corpuscular 32.7 G/DL LinkLogic 31.5-35.7 hemoglobin concentration, RBC " mean corpuscular 27.7 pg LinkLogic 26.6-33.0 hemoglobin, RBC " mean corpuscular 85 fL LinkLogic 79-97 volume, RBC " hematocrit, blood 38.5 % LinkLogic 37.5-51.0 " hemoglobin, blood 12.6 g/dL LinkLogic 12.6-17.7 " erythrocyte (RBC) 4.55 LinkLogic 4.14-5.80 count X10E6/UL " leukocyte count, 7.1 X10E3/UL LinkLogic 3.4-10.8 blood Neisseria Negative LinkLogic Negative gonorrhoeae DNA probe " chlamydia DNA Negative LinkLogic Negative probe specific gravity, 1.005 Antoinette Hogde 11/14 urine " pH, urine, 6.0 Antoinette Hodge semiquantitative " glucose, urine, negative Antoinette Hodge semiquantitative " bilirubin, urine negative Antoinette Hodge " ketones, urine, by negative Antoinette Hodge test strip " blood in urine negative Antoinette Hodge (hemoglobin) by dipstick " protein, urine, negative Antoinette Hodge semiquantitative (dipstick) " urobilinogen, negative Antoinette Hodge urine, semiquantitative (dipstick) " nitrite, urine, negative Antoinette Hdoge semiquantitative " leukocyte negative Antoinette Hodge esterase, urine, by dipstick " appearance, urine clear Antoinette Hodge " urine color yellow Antoinette Hodge HIV rapid test negative Antoinette Hodge 10/18 results Neisseria Negative LinkLogic Negative 10/02 gonorrhoeae DNA probe " chlamydia DNA Negative LinkLogic Negative probe " HIV-CMIA Non Reactive LinkLogic Non (Chemiluminescent Reactive Microparticle Immuno Assay) " hepatitis A Negative LinkLogic Negative antibody, total " hepatitis B core Negative LinkLogic Negative antibody, total " hepatitis B Negative LinkLogic Negative surface antigen " hepatitis C <0.1 LinkLogic 0.0-0.9 antibody, serum " rapid plasma Non Reactive LinkLogic Non reagin antibody, Reactive serum " hepatitis B Non Reactive LinkLogic surface antibody " alanine 10 1/L LinkLogic 0-44 aminotransferase (SGPT), serum " aspartate 16 1/L LinkLogic 0-40 aminotransferase (SGOT), serum " alkaline 70 1/L LinkLogic 39-117 phosphatase, serum " bilirubin, serum, 0.3 mg/dL LinkLogic 0.0-1.2 total " albumin/globulin 1.8 LinkLogic 1.1-2.5 ratio, serum " globulin, serum 2.7 LinkLogic 1.5-4.5 " albumin, serum 4.9 g/dL LinkLogic 3.5-5.5 " protein, total, 7.6 g/dL LinkLogic 6.0-8.5 serum " calcium, serum 9.8 mg/dL LinkLogic 8.7-10.2 " carbon dioxide, 25 mmol/L LinkLogic 18-29 venous blood " chloride, serum 102 mmol/L LinkLogic 97-108 " potassium, serum 4.3 mmol/L LinkLogic 3.5-5.2 " sodium, serum 142 mmol/L LinkLogic 134-144 " urea 16 LinkLogic 8-19 nitrogen/creatinin e ratio, serum " eGFR if 134 LinkLogic >59 Zimbabwean mL/min/((173 /100).m2) " Estimated 116 LinkLogic >59 Glomerular mL/min/((173 Filtration Rate /100).m2) (calc) " creatinine, serum 0.79 mg/dL LinkLogic 0.76-1.27 " urea nitrogen, 13 mg/dL LinkLogic 6-20 blood " blood glucose, 93 mg/dL LinkLogic 65-99 random " immature 0 % LinkLogic granulocytes, percentage of total cells, blood " basophil count, 0.0 x10E3/uL LinkLogic 0.0-0.2 absolute " Eosinophil 0.1 X10E3/UL LinkLogic 0.0-0.4 Absolute Count " monocyte count, 0.5 X10E3/UL LinkLogic 0.1-0.9 blood, automated " lymphocyte count, 2.7 X10E3/UL LinkLogic 0.7-3.1 blood, automated " Absolute 3.3 X10E3/UL LinkLogic 1.4-7.0 Neutrophils " basophils as 0 % LinkLogic percent of blood leukocytes " eosinophils as 1 % LinkLogic percent of blood leukocytes " monocytes as 7 % LinkLogic percent of blood leukocytes " lymphocytes as 41 % LinkLogic percent of blood leukocytes " neutrophils as 51 % LinkLogic percent of blood leukocytes " platelet count 297 X10E3/UL LinkLogic 150-379 " red blood cell 14.2 % LinkLogic 12.3-15.4 distribution width " mean corpuscular 32.9 G/DL LinkLogic 31.5-35.7 hemoglobin concentration, RBC " mean corpuscular 27.7 pg LinkLogic 26.6-33.0 hemoglobin, RBC " mean corpuscular 84 fL LinkLogic 79-97 volume, RBC " hematocrit, blood 41.4 % LinkLogic 37.5-51.0 " hemoglobin, blood 13.6 g/dL LinkLogic 12.6-17.7 " erythrocyte (RBC) 4.91 LinkLogic 4.14-5.80 count X10E6/UL " leukocyte count, 6.5 X10E3/UL LinkLogic 3.4-10.8 blood hepatitis B Negative LinkLogic Negative 01/02 surface antigen " rapid plasma Non Reactive LinkLogic Non reagin antibody, Reactive serum " HIV-1/HIV-2 Ab, Non Reactive LinkLogic Non serum Reactive " alanine 13 1/L LinkLogic 0-44 aminotransferase (SGPT), serum " aspartate 14 1/L LinkLogic 0-40 aminotransferase (SGOT), serum " alkaline 69 1/L LinkLogic 44-102 phosphatase, serum " bilirubin, serum, 0.3 mg/dL LinkLogic 0.0-1.2 total " albumin/globulin 1.4 LinkLogic 1.1-2.5 ratio, serum " globulin, serum 3.3 LinkLogic 1.5-4.5 " albumin, serum 4.7 g/dL LinkLogic 3.5-5.5 " protein, total, 8.0 g/dL LinkLogic 6.0-8.5 serum " calcium, serum 9.7 mg/dL LinkLogic 8.7-10.2 " carbon dioxide, 23 mmol/L LinkLogic 19-28 venous blood " chloride, serum 103 mmol/L LinkLogic 97-108 " potassium, serum 4.5 mmol/L LinkLogic 3.5-5.2 " sodium, serum 142 mmol/L LinkLogic 134-144 " urea 17 LinkLogic 8-19 nitrogen/creatinin e ratio, serum " Estimated 93 LinkLogic >59 Glomerular mL/min/((173 Filtration Rate /100).m2) (calc) " creatinine, serum 1.05 mg/dL LinkLogic 0.76-1.27 " urea nitrogen, 18 mg/dL LinkLogic 6-20 blood " blood glucose, 93 mg/dL LinkLogic 65-99 random hepatitis B Negative LinkLogic Negative 10/09 surface antigen " rapid plasma Non Reactive LinkLogic Non reagin antibody, Reactive serum " HIV-1/HIV-2 Ab, Non Reactive LinkLogic Non serum Reactive " alanine 18 1/L LinkLogic 0-44 aminotransferase (SGPT), serum " aspartate 17 1/L LinkLogic 0-40 aminotransferase (SGOT), serum " alkaline 74 1/L LinkLogic 25-150 phosphatase, serum " bilirubin, serum, 0.3 mg/dL LinkLogic 0.0-1.2 total " albumin/globulin 1.4 LinkLogic 1.1-2.5 ratio, serum " globulin, serum 3.4 LinkLogic 1.5-4.5 " albumin, serum 4.9 g/dL LinkLogic 3.5-5.5 " protein, total, 8.3 g/dL LinkLogic 6.0-8.5 serum " calcium, serum 9.7 mg/dL LinkLogic 8.7-10.2 " carbon dioxide, 25 mmol/L LinkLogic 20-32 venous blood " chloride, serum 102 mmol/L LinkLogic 97-108 " potassium, serum 4.2 mmol/L LinkLogic 3.5-5.2 " sodium, serum 143 mmol/L LinkLogic 134-144 " urea 16 LinkLogic 8-19 nitrogen/creatinin e ratio, serum " Estimated 112 LinkLogic >59 Glomerular mL/min/((173 Filtration Rate /100).m2) (calc) " creatinine, serum 0.89 mg/dL LinkLogic 0.76-1.27 " urea nitrogen, 14 mg/dL LinkLogic 6-20 blood " blood glucose, 101 mg/dL LinkLogic 65-99 High random HISTORY OF IMMUNIZATIONS Date Vaccine Dose Lot Number Status [id number] 1 mL [id number] completed [id number] 1 mL [id number] completed flu vax cancelled HISTORY OF MEDICATION USE Medication Instructions Dates Provider Comments FLUTICASONE PROP 50 SPRAY 2 SPRAYS INTO Alba Garcia MCG SPRAY EACH NOSTRIL EVERY MedAdherence DAY SINGULAIR 10 MG ORAL 1 by mouth nightly at Gil diop TABLET bedtime MEDROL 4 MG ORAL use as directed - Gil Jc TABLET THERAPY PACK TAMIFLU 75 MG ORAL 1 cap By Mouth Every - Gil Jc CAPSULE Day x 10 days TRUVADA 200 MG-300 TAKE 1 TABLET BY Magi Wehmeyer MG TABLET MOUTH EVERY DAY MedAdherence, TRUVADA 200-300 MG 1 by mouth daily - Antoinette Ayesha ORAL TABLET SOCIAL HISTORY Date Observation Value Provider Exercise Program Referral Juanita rodríguez " Weight Management Counseling Juanita Diamond Provided " Nutrition intervention Juanita golden alcohol use, frequency holidays/special Lisandra Ve ntura occasions only " drug use, illicit Never Lisandra Webster " alcohol use Currently Lisandra Webster " social history E&M Single. N Lisandra Webster ot homeless. [place] City: [place]. State: [place] E m[place]ed. Highest education level: bachelor's degree. G sandra of partner(s): male and female. Age of first sexual intercourse: 20. " social history reviewed E&M reviewed today Nanc y Webster " is there any chance that you No Nan cy Webster could be ? " passive cigarette smoke No Lisandra Ve ntura exposure " smoking status never smoker Lisandra Webster " Exercise Program Referral T Lisandra Webster " Weight Management Counseling T Nan cy Webster Provided " Nutrition intervention T Lisandra becerra time of call 09/14/2018 4;45 pm Jeremiah watson time of call 09/13/2018 2:08 PM Jeremiah watson time of call 09/04/2018 12:40 PM Jeremiah acevedo drug use, illicit Never Anthonyisela Valdez " alcohol use, frequency holidays/special Yamisela Valdez occasions only " alcohol use Currently Yamisela Valdez " social history E&M Single. N Yamisela Valdez ot homeless. [place] City[place]. State: [place] E m[place]ed. Highest education level: bachelor's degree. G sandra of partner(s): male and female. Age of first sexual intercourse: 20. " social history reviewed E&M reviewed today Michelle Valdez " passive cigarette smoke No Yamisela Valdez exposure " smoking status never smoker Yamisela Valdez " Exercise Program Referral T Jalen Ayala " Weight Management Counseling T Anthony Valdez Provided " Nutrition intervention T Tal Valdez time of call 06/01/2018 3:16 PM Jeremiah watson time of call 05/29/2018 1:59 PM Jeremiah watson time of call 02/01/2018 11:33 AM Jeremiah acevedo time of call 02/01/2018 11:11 AM Jeremiah Mathur curtis time of call 01/31/2018 3:40 PM Jeremiah Andrewtoby watson time of call 01/04/2018 2:03 PM Jeremiah Andrewtoby watson time of call 10/12/2017 3:51 PM Jeremiah watson " passive cigarette smoke No Dmitri Ca llis exposure " is there any chance that you No Err on Clint could be ? " smoking status never smoker Dmitri Clint " alcohol use Never Dmitri Clint " drug use, illicit Currently Dmitri Clint " social history E&M Single. N Dmitri Clint ot homeless. Born in [facility]. City: [place]. State: [place] E mploy. Highest education level: bachelor's degree. G sandra of partner(s): male and female. Age of first sexual intercourse: 20. " social history reviewed E&M reviewed today Erro n Clint time of call 08/03/2017 3:42 PM Jeremiah Andrewtoby watson time of call 08/02/2017 10:18 AM Jeremiah Kevan acevedo time of call 07/20/2017 10:43 AM Jeremiah Andrewtricia acevedo time of call 05/04/2017 9:54 AM Jeremiah watson time of call 04/22/2017 1:58 PM Jeremiah watson time of call 04/22/2017 11:18 AM Jeremiah acevedo time of call 2017 10:27 AM Jeremiah acevedo social history - sexual single MSM Rafita Espinal practice " Exercise Program Referral Juanita Espinal " Weight Management Counseling Juanita Espinal Provided " Nutrition intervention Juanita Espinal " passive cigarette smoke No Dmitri Ca llis exposure " is there any chance that you No Err on Clint could be ? " smoking status never smoker Dmitri Clint " alcohol use Never Dmitri Clint " drug use, illicit Currently Dmitri Clint " social history E&M Single. N Dmitri Clint ot homeless. [place] City[place]. State: [place] [facility] Highest education level: bachelor's degree. G sandra of partner(s): male and female. Age of first sexual intercourse: 20. " social history reviewed E&M reviewed today Erro n Clint time of call 12/13/2016 12:15 PM Jeremiah Andrewtricia acevedo sexual orientation Bisexual Gely barrios " drug use, illicit Currently Gely Ellison ez " alcohol use Never Gely Lopez " social history E&M Single. N Gely Lopez ot homeless. [place] City[place] State[place] [facility] Highest education level: bachelor's degree. G sandra of partner(s): male and female. Age of first sexual intercourse: 20. " social history reviewed E&M reviewed today Alhaji Lopez " is there any chance that you No Chava Lopez could be ? " passive cigarette smoke No Gely H kareem exposure " smoking status never smoker Gely Lopez Exercise Program Referral Juanita Espinal " Weight Management Counseling Juanita Espinal Provided " Nutrition intervention Juanita Espinal " passive cigarette smoke No Dmitri Ca llis exposure " drug use, illicit Currently Dmitri Clint " alcohol use Never Dmitri Clint " smoking status never smoker Dmitri Clint " social history E&M Single. N Dmitri Clint ot homeless. [place] City[place] State[place] [facility] Highest education level: bachelor's degree. G sandra of partner(s): male and female. Age of first sexual intercourse: 20. " social history reviewed E&M reviewed today Erro n Clint " passive cigarette smoke No Dmitri Ca llis exposure " drug use, illicit Currently Dmitri Clint " alcohol use Never Dmitri Clint " smoking status never smoker Dmitri Clint " social history E&M Single. N Dmitri Clint ot homeless. [place] City[place] m[place]ed. Highest education level: bachelor's degree. G sandra of partner(s): male and female. Age of first sexual intercourse: 20. " social history reviewed E&M reviewed today Álvaro Amayais drug use, illicit Currently Lilly Anderso n " alcohol use Never Lilly Mustapha " smoking status never smoker Lilly Mustapha Exercise Program Referral Juanita Hodge " Weight Management Counseling T Cee Hodge Provided " Nutrition intervention T Antoinette sarah " drug use, illicit Currently Lilly Anderso n " alcohol use Never Lilly Mustapha " sex at male Lilly Luciano " smoking status never smoker Lilly Mustapha time of call 10/17/2014 3:45 PM Tucker High time of call 02/13/2013 12:02 PM Cynthia joshua drug use, illicit Currently Frieda Jaram illo " alcohol use Never Frieda Jaramil lo " passive cigarette smoke No Frieda Tao exposure " smoking status never smoker Frieda Jaramil lo drug use, illicit Currently Frieda Jaram illo " alcohol use Never Frieda Jaramil lo " passive cigarette smoke No Frieda Tao exposure " smoking status never smoker Frieda Jaramil lo drug use, illicit, drug of other (see comments) Neli Mark choice " drug use, illicit Currently Neli Flores " alcohol use Never Neli Flores " social history reviewed E&M reviewed today Tarun Flores " social history E&M Single. N Neli Flores ot homeless. Born in [facility]. City: [place]. State: [place] E mployed. Highest education level: bachelor's degree. G sandra of partner(s): male and female. Age of first sexual intercourse: 20. " patient considered to be No Neli G allardo homeless " passive cigarette smoke No Neli Ga llardo exposure " smoking status never smoker Neli Florse HIV behavioural goal 1 "I want to stay HIV Allen Simmons negative" " Substance use before sex hallucinogens, other Da josé antonio Simmons FUNCTIONAL STATUS No Information Available MENTAL STATUS Date Observation Value Provider mental status examination: intact for recent and Alba Sultanapard recall E&M remote events " assessment of judgment and intact Alba Diamond insight E&M " mental status examination: oriented to time, luis ce, Alba Diamond orientation E&M and person " assessment of mood and no depression, anxiety, o r Alba Diamond affect E&M agitation assessment of judgment and intact Alba Diamond insight E&M " mental status examination: oriented to time, luis ce, Alba Diamond orientation E&M and person " assessment of mood and no depression, anxiety, o r Alba Diamond affect E&M agitation " Generalized Anxiety Disorder 0 Nan cy Webster Questionnaire - Question 2 " Generalized Anxiety Disorder 0 Nan cy Webster Questionnaire - Question 1 assessment of mood and no depression, anxiety, o r Gil Cortesey affect E&M agitation " Generalized Anxiety Disorder 0 Yam shikha Valdez Questionnaire - Question 2 " Generalized Anxiety Disorder 0 Yam shikha Valdez Questionnaire - Question 1 assessment of mood and no depression, anxiety, o r Rafita Pino O'Wilman affect E&M agitation " mental status examination: oriented to time, luis ce, Rafita Pino O'Wilman orientation E&M and person " assessment of judgment and intact Alon t Pino O'Wilman insight E&M " Generalized Anxiety Disorder 0 Err on Clint Questionnaire - Question 2 " Generalized Anxiety Disorder 0 Err on Clint Questionnaire - Question 1 assessment of judgment and intact Alon t Pino O'Wilman insight E&M " mental status examination: oriented to time, luis ce, Rafita Pino O'Wilman orientation E&M and person " assessment of mood and no depression, anxiety, o r Rafita Pino O'Wilman affect E&M agitation " Generalized Anxiety Disorder 0 Err on Clint Questionnaire - Question 2 " Generalized Anxiety Disorder 0 Err on Clint Questionnaire - Question 1 assessment of judgment and intact Yamila na Shrikanth insight E&M " assessment of mood and no depression, anxiety, o r Renetta Shrikanth affect E&M agitation " Generalized Anxiety Disorder 0 Chava nca John Questionnaire - Question 2 " Generalized Anxiety Disorder 0 Chava nca John Questionnaire - Question 1 assessment of mood and Appropriate Rafita To dd O'Wilman affect E&M " assessment of judgment and intact Alon t Pino O'Wilman insight E&M " Generalized Anxiety Disorder 0 Err on Clint Questionnaire - Question 2 " Generalized Anxiety Disorder 0 Err on Clint Questionnaire - Question 1 assessment of judgment and intact Alon juanita Pringle O'Wilman insight E&M " assessment of mood and Appropriate Rafita To dd O'Wilman affect E&M " Generalized Anxiety Disorder 0 Err on Clint Questionnaire - Question 2 " Generalized Anxiety Disorder 0 Err on Clint Questionnaire - Question 1 Generalized Anxiety Disorder 0 [place] nda Mustapha Questionnaire - Question 2 " Generalized Anxiety Disorder 0 [place] nda Mustapha Questionnaire - Question 1 assessment of judgment and intact Nav ie Ayesha insight E&M " assessment of mood and no depression, anxiety, o r Antoinette Ayesha affect E&M agitation " Generalized Anxiety Disorder 0 [place] nda Mustapha Questionnaire - Question 2 " Generalized Anxiety Disorder 0 [place] nda Mustapha Questionnaire - Question 1 MEDICAL EQUIPMENT No Information Available FAMILY HISTORY No Information Available INSURANCE PROVIDERS Payer name Policy type / Coverage type Covered part y ID Sliding Fee Scale Commercial insurance Kateeva [id number] Family Planning/[facility] Medicaid [id number] Primary Health Care Gavin Other [id number] ADVANCE DIRECTIVES Name Date DISCUSSED - NO DECISION MADE TREATMENT PLAN Date Name Hemoglobin A1c Vitamin D, 25-Hydroxy Vitamin B12 and Folate TSH+Free T4 Lipid Panel Comp. Metabolic Panel (14) CBC With Differential/Platel et Comp. Metabolic Panel (14) Hepatitis Super Panel RPR, Rfx Qn RPR/Confirm TP HIV 1/2 ANTIGEN/ANTIBODY, FO URTH GENERATION W/RFL Hepatitis Super Panel RPR, Rfx Qn RPR/Confirm TP Chlamydia/GC Amplification ( Urine) HIV 1/2 ANTIGEN/ANTIBODY, FO URTH GENERATION W/RFL CBC With Differential/Platel et Hep A Ab, Total Comp. Metabolic Panel (14) RPR, Rfx Qn RPR/Confirm TP Chlamydia/GC Amplification ( Urine) HIV 1/2 ANTIGEN/ANTIBODY, FO URTH GENERATION W/RFL Comp. Metabolic Panel (14) Chlamydia/GC Amplification ( Urine) Comp. Metabolic Panel (14) RPR, Rfx Qn RPR/Confirm TP HIV 1/2 ANTIGEN/ANTIBODY, FO URTH GENERATION W/RFL Ct/GC TRACI, Pharyngeal RPR, Rfx Qn RPR/Confirm TP Chlamydia/GC Amplification HIV 1/2 ANTIGEN/ANTIBODY, FO URTH GENERATION W/RFL Comp. Metabolic Panel (14) HIV 1/2 ANTIGEN/ANTIBODY, FO URTH GENERATION W/RFL Comp. Metabolic Panel (14) RPR, Rfx Qn RPR/Confirm TP HIV 1/2 ANTIGEN/ANTIBODY, FO URTH GENERATION W/RFL Comp. Metabolic Panel (14) RPR, Rfx Qn RPR/Confirm TP HIV 1/2 ANTIGEN/ANTIBODY, FO URTH GENERATION W/RFL Comp. Metabolic Panel (14) HIV 1/2 ANTIGEN/ANTIBODY, FO URTH GENERATION W/RFL Comp. Metabolic Panel (14) HIV 1/2 ANTIGEN/ANTIBODY, FO URTH GENERATION W/RFL Hep B Surface Ab Hep B Core Ab, Tot Hep A Ab, Total Chlamydia/GC Amplification HBsAg Screen HCV Antibody RPR, Rfx Qn RPR/Confirm TP Comp. Metabolic Panel (14) CBC With Differential/Platel et RNA, Real Time PCR (Graph) HIV 1/2 ANTIGEN/ANTIBODY, FO URTH GENERATION W/RFL RPR, Rfx Qn RPR/Confirm TP HCV Antibody Chlamydia/GC Amplification Lipid Panel Comp. Metabolic Panel (14) CBC With Differential/Platel et Chlamydia/GC Amplification Hep A Ab, Total Hep B Core Ab, Tot Hep B Surface Ab HBsAg Screen HCV Antibody HIV 1/2 ANTIGEN/ANTIBODY, FO URTH GENERATION W/RFL RPR, Rfx Qn RPR/Confirm TP Comp. Metabolic Panel (14) CBC With Differential/Platel et HBsAg Screen RPR, Rfx Qn RPR/Confirm TP HIV-1/O/2 Antibodies, Prelim inary Test with Confirmation Comp. Metabolic Panel (14) Comp. Metabolic Panel (14) RPR, Rfx Qn RPR/Confirm TP HIV-1/O/2 Antibodies, Prelim inary Test with Confirmation HBsAg Screen Est Patient Exp Problem - 99 213 Health Education/Supportive Counseling Health Education/Supportive Counseling Ofc Vst, Est Level IV Health Education/Supportive Counseling Health Education/Supportive Counseling Health Education/Supportive Counseling Est Patient Detailed - 69873 Health Education/Supportive Counseling Health Education/Supportive Counseling Health Education/Supportive Counseling Health Education/Supportive Counseling Health Education/Supportive Counseling Health Education/Supportive Counseling Health Education/Supportive Counseling Est Patient Detailed - 07926 Health Education/Supportive Counseling Health Education/Supportive Counseling Health Education/Supportive Counseling Health Education/Supportive Counseling Health Education/Supportive Counseling Health Education/Supportive Counseling Health Education/Supportive Counseling Est Patient Exp Problem - 99 213 Health Education/Supportive Counseling Health Education/Supportive Counseling Health Education/Supportive Counseling Health Education/Supportive Counseling Est Patient Detailed - 11995 Health Education/Supportive Counseling Est Patient Problem Focus - 19798 Health Education/Supportive Counseling Health Education/Supportive Counseling Injection, penicillin g gurmeet athine, 1.2 mu Est Patient Problem Focus - 97006 Health Education/Supportive Counseling Twinrix - Adult Admin of Vaccine - Injection - 1 Ofc Vst, Est Level III Twinrix - Adult Admin of Vaccine - Injection - 1 Ofc Vst, Est Level III Individual patient education , not otherwise classified, non-physician provider Est Patient Exp Problem - 99 213 Condom - Male Oraquick HIV - InHouse Individual patient education , not otherwise classified, non-physician provider Condom - Male Est Patient Exp Problem - 99 213 Est Patient Problem Focus - 77959 HISTORY OF PROCEDURES Procedure Date Procedure Name Provider Procedure Notes Status Health Jeremiah Marroquin completed Education/Supportive Counseling [facility] completed Education/Supportive Services Provider Counseling Health Jeremiah Marroquin completed Education/Supportive Counseling Health Jeremiah Marroquin completed Education/Supportive Counseling Health Jeremiah Marroquin completed Education/Supportive Counseling Health Jeremiah Marroquin completed Education/Supportive Counseling Health Jeremiah Marroquin completed Education/Supportive Counseling Health Jeremiah Marroquin completed Education/Supportive Counseling Health Jeremiah Marroquin completed Education/Supportive Counseling Health Jeremiah Marroquin completed Education/Supportive Counseling Health Jeremiah Marroquin completed Education/Supportive Counseling Health Jeremiah Marroquin completed Education/Supportive Counseling Health Jeremiah Marroquin completed Education/Supportive Counseling Health Jeremiah Marroquin completed Education/Supportive Counseling Health Jeremiah Marroquin completed Education/Supportive Counseling Health Jeremiah Marroquin completed Education/Supportive Counseling Health Jeremiah Marroquin completed Education/Supportive Counseling Health Jeremiah Marroquin completed Education/Supportive Counseling Health Jeremiah Marroquin completed Education/Supportive Counseling Health Jeremiah Marroquin completed Education/Supportive Counseling [facility] completed Education/Supportive Services Provider Counseling [facility] completed Education/Supportive Services Provider Counseling Health Eugenie Angeles completed Education/Supportive Counseling [facility] PrEP Retention completed Education/Supportive Services Provider Counseling Health Eugenierudy Angeles PrEP Assessment completed Education/Supportive Counseling [facility] PrEP Retention completed Education/Supportive Services Provider Counseling Injection, penicillin Rafita Espinal completed g benzathine, 1.2 mu [facility] PrEP Intake completed Education/Supportive Services Provider Counseling Individual patient Cynthia Simmons compl eted education, not otherwise classified, non-physician provider Condom - Male Alba Diamond Quantity: 3 completed Oraquick HIV - Alba Diamond completed InHouse Individual patient Cynthia Simmons compl eted education, not otherwise classified, non-physician provider Condom - Male Alba Diamond Quantity: 3 completed GOALS No Information Available HEALTH CONCERNS No Information Available
[2020-04-08] MEDS ORDERED: LIDOCAINE 1% MPF 5 ML VIAL ONE (22:05)
--- NOTE | 2020-04-08 22:10 | EDPHYS ---
Physician Documentation [facility] Name: Santino Jacobson Age: 40 yrs Sex: Male : 1980 Arrival Date: 04/08/2020 Time: 20:34 Bed 17 Private MD: ED Physician Leonel Goode HPI: 04/08 22:04 This 40 yrs old Male presents to ER via Ambulatory with complaints of pm1 LACERATION TO FINGER. 22:04 The patient or guardian reports a laceration, irregular, 1 cm(s). The complaints affect pm1 the palmar aspect of distal phalanx of left little finger. Context: The problem was sustained at home, resulted from cutting mail with a boxing instructor. Onset: The symptoms/episode began/occurred just prior to arrival. Modifying factors: The symptoms are alleviated by pressure to area. Associated signs and symptoms: The patient has no apparent associated signs or symptoms, Pertinent negatives: cyanosis distally, decreased sensation distally, numbness distally, tingling distally. Severity of symptoms: in the emergency department the symptoms have improved. The patient has experienced similar episodes in the past, a few times. The patient has not recently seen a physician, the patient's primary care provider is Dr. Kraft. Historical: - Allergies: 21:05 No Known Allergies; ca1 - Home Meds: 21:05 Lamictal Oral [Active]; Lexapro Oral [Active]; Truvada oral oral [Active]; ca1 - PMHx: 21:05 Bipolar disorder; ca1 - PSHx: 21:05 None; ca1 - Immunization history:: Adult Immunizations up to date, Last tetanus immunization: unknown. - Social history:: Smoking status: Patient denies any tobacco usage or history of. ROS: 22:04 Constitutional: Negative for fever, chills, and weight loss, Cardiovascular: Negative pm1 for chest pain, palpitations, and edema, Respiratory: Negative for shortness of breath, cough, wheezing, and pleuritic chest pain. 22:04 Neuro: Negative for headache, weakness, numbness, tingling, and seizure. 22:04 MS/extremity: Positive for laceration, pain, of the palmar aspect of distal phalanx of left little finger, Negative for decreased range of motion, deformity. 22:04 Skin: Positive for laceration(s), of the palmar aspect of distal phalanx of left little finger. Exam: 22:04 Constitutional: This is a well developed, well nourished patient who is awake, alert, pm1 and in no acute distress. Head/Face: Normocephalic, atraumatic. 22:04 Cardiovascular: Exam negative for acute changes, Rate: normal, Rhythm: regular, Pulses: no pulse deficits are appreciated. 22:04 Respiratory: Exam negative for acute changes, respiratory distress, shortness of breath. 22:04 Skin: Appearance: normal except for affected area, injury, laceration(s), the wound is approximately 1 cm(s), of the palmar aspect of distal phalanx of left little finger, that can be described as clean, no foreign body, irregular, with mild bleeding. 22:04 Neuro: Exam negative for acute changes, Orientation: is normal, Mentation: is normal, Motor: is normal, moves all fours. Vital Signs: 21:00 BP 129 / 88; Pulse 87; Resp 15 S; Temp 98.3(TE); Pulse Ox 100% ; Weight 70.31 kg (R); ca1 Height 5 ft. 7 in. (170.18 cm) (R); Pain 2/10; 22:18 BP 120 / 80; Pulse 80; Resp 18; Temp 98; Pulse Ox 100% on R/A; mg2 21:00 Body Mass Index 24.28 (70.31 kg, 170.18 cm) ca1 Laceration: 22:06 Wound Repair of 1cm ( 0.4in ) subcutaneous laceration to palmar aspect of distal pm1 phalanx of left little finger. Irregularly shaped.. Distal neuro/vascular/tendon intact. Anesthesia: Local anesthetic administered with 1 mls of 1% lidocaine. Wound prep: Extensive cleansing with hibiclenz by me, Wound irrigation, Copious irrigation. Skin closed with 4 5-0 Prolene using simple sutures and sterile technique. Dressed with 4x4's, finger splint. Patient tolerated well. MDM: 21:38 Patient medically screened. pm1 22:08 Data reviewed: vital signs. Data interpreted: Pulse oximetry: on room air is 100 %. pm1 Interpretation: normal. Counseling: I had a detailed discussion with the patient and/or guardian regarding: the historical points, exam findings, and any diagnostic results supporting the discharge/admit diagnosis, the need for outpatient follow up, a family practitioner, suture removal in 10-14 days, to return to the emergency department if symptoms worsen or persist or if there are any questions or concerns that arise at home. 04/08 21:41 Order name: Prolene, Sutures; Complete Time: 21:58 pm1 04/08 21:41 Order name: Dressing - Wound; Complete Time: 21:58 pm1 04/08 21:41 Order name: Gloves, Sterile; Complete Time: 21:58 pm1 04/08 21:41 Order name: Setup Suture Tray; Complete Time: 21:58 pm1 04/08 22:06 Order name: Finger Splint; Complete Time: 22:10 pm1 Administered Medications: 21:58 Drug: Lidocaine (1 %) 5 ml {Note: administered by the provider.} Volume: 5 ml; Route: mg2 Infiltration; 22:20 Follow up: Response: No adverse reaction mg2 22:14 Drug: Tetanus-Diphtheria Toxoid Adult 0.5 ml {[employer] Nurse: [employer] Exp: mg2 08/02/2022. Lot #: [id number]. } Route: IM; Site: left deltoid; 22:20 Follow up: Response: No adverse reaction; Medication administered at discharge. mg2 Disposition: 04/09 01:18 Co-signature as Attending Physician, Leonel Goode MD. pkl Disposition: 04/08/20 22:09 Discharged to Home. Impression: Laceration without foreign body of left little finger without damage to nail. - Condition is Stable. - Discharge Instructions: Laceration Care, Adult. - Prescriptions for Keflex 500 mg Oral Capsule - take 1 capsule by ORAL route every 12 hours for 10 days; 20 capsule. - Medication Reconciliation Form, Thank You Letter, Antibiotic Education, Prescription Opioid Use form. - Follow up: Emergency Department; When: As needed; Reason: Worsening of condition. Follow up: Private Physician; When: 10 - 14 days; Reason: Recheck today's complaints, Continuance of care, Staple/Suture removal, Re-evaluation by your physician. - Problem is new. - Symptoms have improved. Signatures: Leonel Goode MD MD pkl Ronnie Graham, SKID MAN SKID MAN pm1 Tony Nagel RN RN mg2 Nury Yeung RN RN ca1 Corrections: (The following items were deleted from the chart) 04/08 22:19 22:09 04/08/2020 22:09 Discharged to Home. Impression: Laceration without foreign body mg2 of left little finger without damage to nail. Condition is Stable. Forms are Medication Reconciliation Form, Thank You Letter, Antibiotic Education, Prescription Opioid Use. Follow up: Emergency Department; When: As needed; Reason: Worsening of condition. Follow up: Private Physician; When: 10 - 14 days; Reason: Recheck today's complaints, Continuance of care, Staple/Suture removal, Re-evaluation by your physician. Problem is new. Symptoms have improved. pm1
--- NOTE | 2020-04-08 22:10 | ER ---
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 ca1 Bleeding controlled. Coronavirus screen: Client denies travel out of the [place] in the last 14 days. At this time, the client does not indicate any symptoms associated with coronavirus-19. Ebola Screen: Patient negative for fever greater than or equal to 101.5 degrees Fahrenheit, and additional compatible Ebola Virus Disease symptoms Patient denies exposure to infectious person. Patient denies travel to an Ebola-affected area in the 21 days before illness onset. No symptoms or risks identified at this time. Initial Sepsis Screen: Does the patient meet any 2 criteria? No. Patient's initial sepsis screen is negative. Does the patient have a suspected source of infection? No. Patient's initial sepsis screen is negative. Risk Assessment: Do you want to hurt yourself or someone else? Patient reports no desire to harm self or others. Onset of symptoms was April 08, 2020. 21:00 Method Of Arrival: Ambulatory ca1 21:00 Acuity: AYLIN 4 ca1 Historical: - Allergies: 21:05 No Known Allergies; ca1 - Home Meds: 21:05 Lamictal Oral [Active]; Lexapro Oral [Active]; Truvada oral oral [Active]; ca1 - PMHx: 21:05 Bipolar disorder; ca1 - PSHx: 21:05 None; ca1 - Immunization history:: Adult Immunizations up to date, Last tetanus immunization: unknown. - Social history:: Smoking status: Patient denies any tobacco usage or history of. Screenin:09 Abuse screen: Denies threats or abuse. Denies injuries from another. Nutritional mg2 screening: No deficits noted. Tuberculosis screening: No symptoms or risk factors identified. Fall Risk None identified. Assessment: 22:08 General: Appears in no apparent distress. comfortable, Behavior is calm, cooperative. mg2 Pain: Complains of pain in left little finger. Neuro: Level of Consciousness is awake, alert, obeys commands, Oriented to person, place, time, situation. Cardiovascular: No deficits noted. Respiratory: No deficits noted. GI: No deficits noted. : No deficits noted. EENT: No deficits noted. Derm: Wound noted left little fi nger Wound is fresh wound approx 2 cm. Musculoskeletal: Circulation, motion, and sensation intact. Capillary refill < 3 seconds. Injury Description: Laceration. Vital Signs: 21:00 BP 129 / 88; Pulse 87; Resp 15 S; Temp 98.3(TE); Pulse Ox 100% ; Weight 70.31 kg (R); ca1 Height 5 ft. 7 in. (170.18 cm) (R); Pain 2/10; 22:18 BP 120 / 80; Pulse 80; Resp 18; Temp 98; Pulse Ox 100% on R/A; mg2 21:00 Body Mass Index 24.28 (70.31 kg, 170.18 cm) ca1 ED Course: 20:34 Patient arrived in ED. ag3 21:02 Triage completed. ca1 21:05 Arm band placed on right wrist. ca1 21:38 Ronnie Graham, COPIER AND PRINTER FIELD TECHNICIAN is PHCP. pm1 21:38 Leonel Goode MD is Attending Physician. pm1 21:49 Tony Nagel RN is Primary Nurse. mg2 22:09 Assist provider with laceration repair on left little finger that was 2.5 cm. or less mg2 using sutures. Set up tray. Performed by Ronnie Graham COPIER AND PRINTER FIELD TECHNICIAN Dressed with Neosporin, Patient tolerated well. 4 stitches made under local anesthesia. 22:10 Patient has correct armband on for positive identification. Door closed. mg2 22:19 Patient did not have IV access during this emergency room visit. mg2 Administered Medications: 21:58 Drug: Lidocaine (1 %) 5 ml {Note: administered by the provider.} Volume: 5 ml; Route: mg2 Infiltration; 22:20 Follow up: Response: No adverse reaction mg2 22:14 Drug: Tetanus-Diphtheria Toxoid Adult 0.5 ml {Fitting Room Supervisor: [employer]. Exp: mg2 08/02/2022. Lot #: [id number]. } Route: IM; Site: left deltoid; 22:20 Follow up: Response: No adverse reaction; Medication administered at discharge. mg2 Outcome: 22:09 Discharge ordered by . pm1 22:18 Discharged to home ambulatory. mg2 22:18 Condition: stable 22:18 Discharge instructions given to patient, Instructed on discharge instructions, follow up and referral plans. medication usage, wound care, Demonstrated understanding of instructions, follow-up care, medications, wound care, Prescriptions given X 1. 22:19 Patient left the ED. mg2 Signatures: Ronnie Graham NP COPIER AND PRINTER FIELD TECHNICIAN pm1 Tony Nagel RN RN mg2 Yesica Pinto ag3 Nury Yeung RN RN ca1
[2020-04-08] MEDS ORDERED: TETANUS & DIPHTHERIA TOX,ADULT 0.5 ML VIAL ONE (22:24)
[2020-04-08 22:42] VITALS: O2SAT 100
[2020-04-08 22:44] VITALS: BP 120/80; TEMP 98
== END 2020-04-08 22:19 | disposition home or self-care (01) ==
LOC: ER 20:32
PROC: 0JQK0ZZ Repair Left Hand Subcutaneous Tissue and Fascia, Open Approach (ICD-10-PCS; principal; 2020-04-08)
DX: S61.217A Laceration without foreign body of left little finger without damage to nail, initial encounter (principal); W26.0XXA Contact with knife, initial encounter; Y93.89 Activity, other specified; Y92.009 Unspecified place in unspecified non-institutional (private) residence as the place of occurrence of the external cause; Z23 Encounter for immunization; F31.9 Bipolar disorder, unspecified
CPT/HCPCS: 90471; 90714; 99283